=== PATIENT | male | born 1960 | race Native Hawaiian/Other Pacific Islander ===

== ENCOUNTER 2020-09-23 08:47 | Outpatient (REF) | payer MEDICARE, MEDICAID, SELFPAY | END 2020-09-23 08:48 | disposition home or self-care (01) | LOC: HO.HOSX 08:47 | PROVIDERS: Visit Provider Physician Assistant | DX: Z13.89 Encounter for screening for other disorder (principal) ==

== ENCOUNTER → 2020-10-17 08:05 | Outpatient (BNVA) | payer MEDICARE, SELFPAY | PROVIDERS: Visit Provider Urology | DX: R31.0 Gross hematuria (principal); N40.1 Benign prostatic hyperplasia with lower urinary tract symptoms; R39.15 Urgency of urination; F17.200 Nicotine dependence, unspecified, uncomplicated; Z87.442 Personal history of urinary calculi | CPT/HCPCS: 99202 ==

== ENCOUNTER 2020-10-17 09:04 | Outpatient (REF) | payer MEDICARE, SELFPAY ==
[2020-10-17 11:05] LABS: Blood Urea Nitrogen 21 mg/dL (9-16); Estimated Glomerular Filt Rate > 60
[2020-10-17 17:19] LABS: Urine Cytology See Pathology rpt
== END 2020-10-17 09:05 | disposition home or self-care (01) ==
LOC: HO.10HDL 09:04
PROVIDERS: Visit Provider Urology
DX: R31.0 Gross hematuria (principal); R39.15 Urgency of urination
CPT/HCPCS: 36415; 82565; 84520; 88112

== ENCOUNTER 2020-10-31 13:38 | Outpatient (REF) | payer MEDICARE, SELFPAY ==
--- NOTE | ~2020-10-31 | CT_ITS ---
EXAMINATION: CT ABDOMEN AND PELVIS WITHOUT AND WITH CONTRAST CLINICAL INFORMATION: Gross hematuria. Dual phase injection. COMPARISON: None. TECHNIQUE: Noncontrast CT of the abdomen and pelvis is performed followed by split bolus contrast-enhanced images using 85 mL Omnipaque 350 contrast.? Postcontrast imaging is performed during the combined nephrogram and excretion phase. Sagittal and coronal reformatted images were obtained on the technologist's workstation for both the precontrast and postcontrast phases. This CT examination was performed using dose optimization techniques as appropriate, variously including the following: *Automated exposure control *Adjustment of mA and/or kV according to patient size (this includes techniques or standardized protocols for targeted exams where dose is matched to indication/reason for exam; i.e. extremities or head) *Use of iterative reconstruction technique DLP: 383 mGy-cm. FINDINGS: LUNG BASES: There is a 2 mm calcified nodule left CP angle image 38/4. LIVER, GALLBLADDER, AND BILIARY TREE: The liver is normal in size, shape, and attenuation. There is a 1.4 cm lesion left hepatic lobe. There are there are several additional punctate hyperdensities in the left in the right hepatic lobe, probable cyst. The gallbladder is unremarkable with no evidence of radiopaque gallstones, gallbladder wall thickening, or obvious pericholecystic inflammatory changes. PANCREAS: Unremarkable. SPLEEN: Unremarkable. ADRENAL GLANDS: Unremarkable. KIDNEYS AND URETERS: There is 5 mm nonobstructive radiopaque calculi upper pole left kidney. Postcontrast, there are bilateral symmetrical nephrograms with right kidney measuring 10.2 cm and left kidney measuring 10.4 cm in length. There is no enhancing renal mass or mass effect. There is a nonenhancing 8 mm cyst txk-ag-enwin pole anterior cortex left kidney. On delayed images, there is good excretion and opacification of bilateral calyces and pelvises. The ureters are not well opacified. BLADDER: Unremarkable. GASTROINTESTINAL TRACT: There is scattered stool and gas seen throughout the colon without significant distention. The small bowel loops are normal caliber. Appendix is not visualized well. There is no free air or free fluid. ABDOMINAL WALL: There is a small umbilical hernia containing fat. LYMPH NODES: Normal. VASCULAR: Unremarkable. PELVIC VISCERA: The prostate gland is mildly enlarged with central gland calcification. No abnormal pelvic or inguinal lymph nodes or mass seen. OSSEUS STRUCTURES: There is grade 1 anterolisthesis L5 over S1. There is mild degenerative bulge L3-L4, L4-L5 and L5-S1 disc levels. There is an 8 mm lucency right iliac bone axial image 310/9. There is moderate right L5-S1 facet joint hypertrophy and arthropathy. CT/CT urogram IMPRESSION: Nonobstructive 5 mm radiopaque calculi upper pole left kidney. No caliectasis or hydronephrosis. Bilateral ureters and bladder are not opacified. Mild constipation. Grade 1 anterolisthesis L5 over S1.
== END 2020-10-31 13:39 | disposition home or self-care (01) ==
LOC: HO.CT 13:38
PROVIDERS: Visit Provider Urology
DX: R31.0 Gross hematuria (principal)
CPT/HCPCS: 74178

== ENCOUNTER → 2020-11-28 09:28 | Outpatient (BNVA) | payer OTHER, SELFPAY | PROVIDERS: Visit Provider Urology | DX: N40.1 Benign prostatic hyperplasia with lower urinary tract symptoms (principal); N13.8 Other obstructive and reflux uropathy; R39.15 Urgency of urination | CPT/HCPCS: 52000; 99212 ==

== ENCOUNTER → 2021-05-29 10:20 | Outpatient (BNVA) | payer MEDICARE, MEDICAID, SELFPAY | PROVIDERS: Visit Provider Urology | DX: N40.1 Benign prostatic hyperplasia with lower urinary tract symptoms (principal); N13.8 Other obstructive and reflux uropathy; R39.15 Urgency of urination | CPT/HCPCS: 51798; 99212 ==

== ENCOUNTER → 2021-11-19 09:43 | Outpatient (BNVA) | payer MEDICARE, MEDICAID, SELFPAY | PROVIDERS: PCP Nurse Practitioner; Visit Provider Urology | DX: N40.1 Benign prostatic hyperplasia with lower urinary tract symptoms (principal); N13.8 Other obstructive and reflux uropathy; R39.15 Urgency of urination; Z79.899 Other long term (current) drug therapy | CPT/HCPCS: 51798; 99212 ==

== ENCOUNTER 2022-09-07 07:30 | Outpatient (REF) | payer OTHER, SELFPAY ==
[2022-09-07 07:52] LABS: MANUAL DIFF FLAG NO
[2022-09-07 08:24] LABS: Basophils Percent Auto 0.2 % (0-2); Eosinophils Absolute Auto 0.2 X10*3/uL (0.0-0.4); Eosinophils Percent Auto 2.9 % (0-4); Hematocrit 43.7 % (42.0-52.0); Imm Gran Abs Auto 0.01 X10*3/uL (0.00-0.03); Imm Gran Pct Auto 0.2 % (0.0-0.4); Lymphocytes Percent Auto 35.4 % (20-40); Mean Corpuscular Hemoglobin 28.5 pg (27.0-33.0); Mean Corpuscular Volume 88.8 fL (80.0-98.0); Mean Platelet Volume 9.8 fL (9.4-12.4); Monocytes Absolute Auto 0.5 X10*3/uL (0.1-1.2); Monocytes Percent Auto 8.2 % (2-11); Neutrophils Absolute Auto 2.9 x10*3/uL (2.0-8.3); Neutrophils Percent Auto 53.1 % (45-73); Platelet Count 210 X10*3/uL (160-400); Red Blood Count 4.92 X10*6/uL (4.60-5.80); Red Cell Distribution Width 12.6 % (11.0-16.0); White Blood Count 5.5 X10*3/uL (4.8-10.8)
[2022-09-07 08:31] LABS: Estimated Average Glucose 103 mg/dL; Hemoglobin A1c % 5.2 %
[2022-09-07 09:05] LABS: Alanine Aminotransferase 19 U/L (0-40); Albumin Level 4.4 g/dL (3.5-5.0); Alkaline Phosphatase 67 U/L (39-117); Anion Gap 11 (12-20); Aspartate Amino Transferase 20 U/L (5-37); Bilirubin Total 0.6 mg/dL (0.0-1.0); Blood Urea Nitrogen 13 mg/dL (9-16); Calcium 9.1 mg/dL (8.4-10.2); Carbon Dioxide 24 mmol/L (22-29); Chloride 111 mmol/L (96-108); Cholesterol 120 mg/dL; Estimated Glomerular Filt Rate > 60; Glucose Random 95 mg/dL (60-115); HDL Cholesterol 46 mg/dL; LDL Cholesterol Calculated 65 mg/dl; Potassium 3.7 mmol/L (3.3-5.1); Sodium 142 mmol/L (135-145); Total Protein 6.9 g/dL (6.5-8.0); Triglycerides 49 mg/dL
[2022-09-07 09:14] LABS: Syphilis Screen Nonreactive (Nonreactive)
[2022-09-07 09:20] LABS: TSH reflex Free T4 1.35 uIU/mL (0.32-4.0)
[2022-09-07 09:24] LABS: Creatinine Urine 159.02 mg/dL; Microalbum/Creatinine Ratio Ur 5.6 ug/mg cr
[2022-09-07 11:54] LABS: CT PCR NOT DETECTED (Not Detect.); NG PCR NOT DETECTED (Not Detect.)
[2022-09-09 15:44] LABS: HIV RNA PCR Qn Copies NOT DETECTED copies/mL (NOT DETECTED); HIV RNA PCR Qn Log Copies NOT DETECTED (NOT DETECTED)
[2022-09-10 15:28] LABS: HCV Log PCR <1.18 NOT DETECTED Log IU/mL (NOT DETECTED); HepC Viral Load <15 NOT DETECTED IU/mL (NOT DETECTED)
== END 2022-09-07 07:31 | disposition home or self-care (01) ==
LOC: HO.LAB 07:30
PROVIDERS: PCP Registered Nurse; Visit Provider Registered Nurse
DX: Z00.00 Encounter for general adult medical examination without abnormal findings (principal); Z11.4 Encounter for screening for human immunodeficiency virus [HIV]; Z20.2 Contact with and (suspected) exposure to infections with a predominantly sexual mode of transmission; R00.0 Tachycardia, unspecified; R03.0 Elevated blood-pressure reading, without diagnosis of hypertension
CPT/HCPCS: 0353U; 80053; 80061; 82043; 83036; 84443; 85025; 86780; 87522; 87536

== ENCOUNTER 2023-02-17 11:14 | Outpatient (AMB) | payer OTHER, SELFPAY ==
--- NOTE | 2023-02-17 11:16 | MHC.OFFVIS ---
Intake Intake Visit Reasons: 1y/PVR(BPH) Intake Note: Patient is Present for Follow Up Urology Medication: Finasteride, Tamsulosin Antibiotic Allergies:None Blood Thinners: None PVR: 29 Allergies No Known Allergies Allergy (Verified 02/17/23 11:17) HPI HPI Comments History of Present Illness Details Matthew is a very pleasant male. He is seen for the following urologic conditions - gross hematuria - persistent microscopic hematuria - lower urinary tract symptoms Greenlandic translation provided in office by qualified medical physics professor PVR remains low - 30cc Continued with combination medication Twelve month follow-up Lower urinary tract symptoms Current therapy includes Flomax and finasteride Gross hematuria Intermittent for past 6 months - since early 2020 Was waking 3 times at night but PCP gave Flomax and has responded Employment history working in [employer] Smoking history 2-3 cigarettes per day for 20 years but ceased 15 years ago - Imaging - 12/05 CT urogram no evidence of lesions - Cytology - 12/05 NAD Plan - 12 month follow-up [facility] Medical History History of kidney stones Gross hematuria Umbilical hernia Surgical History History of surgery Social History Patient Tobacco Use Status: Former Tobacco user Review of Systems Const Denies chills and Denies fever(s) Card Reports no additional complaints and Denies syncope Resp Denies cough GI Denies abdominal pain and Denies heartburn Reports as per HPI and Denies change in libido Neuro Denies syncope Psych Denies change in libido Endo Denies change in libido Physical Exam Const General: cooperative, healthy appearing, comfortable and no acute distress Orientation/consciousness: patient oriented x3 HEENT Face and sinus: Yes normal facial exam Mouth: moist mucous membranes Neck Neck: Yes normal visual inspection, Yes full ROM and Yes trachea midline Chest Chest palpation & inspection: normal inspection of the chest Resp Effort & Inspection: normal respiratory effort, able to speak in complete sentences and no respiratory distress GI Inspection: Yes normal to inspection Back/Spine/Pelvis Cervical Spine: normal cervical lordosis Thoracic/Lumbar Spine: thoracic and lumbar spine normal to inspection Skin General skin exam: no rashes or lesions noted Neuro General: patient oriented x3, gait normal, tone normal and moves all extremities Extrem General: Yes normal to inspection and Yes capillary refill normal Office Procedures Post Void Residual Post Residual Void Post Void Residual (PVR): 29 54678-Rpyw Void Residual by ultrasound Assessment & Plan Assessment & Plan (1) BPH w urinary obs/LUTS: Code(s): N40.1 - Benign prostatic hyperplasia with lower urinary tract symptoms; N13.8 - Other obstructive and reflux uropathy Plan Twelve month follow-up Orders: Orders Prostate Specific Antigen 364 Days N13.8 - Other obstructive and reflux uropathy, N40.1 - Benign prostatic hyperplasia with lower urinary tract symptoms AMB Post Void Residual by ultrasound Today N13.8 - Other obstructive and reflux uropathy, N40.1 - Benign prostatic hyperplasia with lower urinary tract symptoms Medications: Changed From finasteride 5 mg PO DAILY 30 days 30 tabs 1RF N13.8 - Other obstructive and reflux uropathy, N40.1 - Benign prostatic hyperplasia with lower urinary tract symptoms, R33.9 - Retention of urine, unspecified To finasteride 5 mg PO DAILY 90 tabs 3RF 90 days N13.8 - Other obstructive and reflux uropathy, N40.1 - Benign prostatic hyperplasia with lower urinary tract symptoms, R33.9 - Retention of urine, unspecified From tamsulosin 0.4 mg PO BEDTIME 30 days 30 caps 1RF To tamsulosin 0.4 mg PO BEDTIME 90 caps 3RF 90 days Patient Instructions: Imaging studies, laboratory and physical exam results were discussed and reviewed in detail. No major barriers to patient understanding were identified. An opportunity to ask questions regarding the treatment plan was provided. All questions were answered. The patient expressed understanding and agreement with the above treatment plan. The patient is aware they should contact our office by phone for worsening of their current condition or the appearance of new urologic symptoms. Compliance is encouraged with any medications and followup testing that is ordered. It is a privilege to participate in the urologic care of your patient. If you have any questions or concerns regarding treatment for the above conditions, or other urologic issues, please do not hesitate to contact me. The office telephone contact is [phone]. This note is constructed using voice recognition software. While every effort has been made to ensure accuracy tracer powder blender errors may have been included. Yours sincerely, Dr Josemanuel Sung MD, [facility] - Urology Providers of Expert, Compassionate Care for the Genitourinary System Coding Level of Care Code Est Pt Level 4 (83892) Diagnoses BPH w urinary obs/LUTS N40.1; N13.8 CPT Codes Post Residual Void - PVR CPT Code: 35173-Wudu Void Residual by ultrasound ([id number])
== END 2023-02-17 11:30 | disposition home or self-care (01) ==
LOC: HO.HUSH 11:14
PROVIDERS: PCP Registered Nurse; Visit Provider Urology
DX: N40.1 Benign prostatic hyperplasia with lower urinary tract symptoms (principal); N13.8 Other obstructive and reflux uropathy
CPT/HCPCS: 99213

== ENCOUNTER → 2023-02-17 11:14 | Outpatient (BNVA) | payer OTHER, SELFPAY | PROVIDERS: PCP Registered Nurse; Visit Provider Urology | DX: N40.1 Benign prostatic hyperplasia with lower urinary tract symptoms (principal); N13.8 Other obstructive and reflux uropathy | CPT/HCPCS: 51798; 99212 ==

== ENCOUNTER 2023-08-26 08:14 | Outpatient (REF) | payer OTHER, SELFPAY ==
[2023-08-26 11:42] LABS: MANUAL DIFF FLAG NO
[2023-08-26 11:47] LABS: Basophils Percent Auto 0.6 % (0-2); Eosinophils Absolute Auto 0.2 X10*3/uL (0.0-0.4); Eosinophils Percent Auto 4.1 % (0-4); Hematocrit 39.6 % (42.0-52.0); Imm Gran Abs Auto 0.02 X10*3/uL (0.00-0.03); Imm Gran Pct Auto 0.4 % (0.0-0.4); Lymphocytes Absolute Auto 2.1 X10*3/uL (1.2-4.9); Lymphocytes Percent Auto 38.4 % (20-40); Mean Corpuscular HGB Conc 32.8 g/dl (31.0-36.0); Mean Corpuscular Hemoglobin 29.4 pg (27.0-33.0); Mean Corpuscular Volume 89.6 fL (80.0-98.0); Mean Platelet Volume 9.8 fL (9.4-12.4); Monocytes Absolute Auto 0.4 X10*3/uL (0.1-1.2); Monocytes Percent Auto 7.8 % (2-11); Neutrophils Absolute Auto 2.6 x10*3/uL (2.0-8.3); Neutrophils Percent Auto 48.7 % (45-73); Platelet Count 212 X10*3/uL (160-400); Red Blood Count 4.42 X10*6/uL (4.60-5.80); Red Cell Distribution Width 13.3 % (11.0-16.0); White Blood Count 5.4 X10*3/uL (4.8-10.8)
[2023-08-26 11:57] LABS: Estimated Average Glucose 103 mg/dL; Hemoglobin A1c % 5.2 % (<6.0)
[2023-08-26 12:09] LABS: Alanine Aminotransferase 14 U/L (0-40); Alkaline Phosphatase 59 U/L (39-117); Anion Gap 10 (12-20); Aspartate Amino Transferase 17 U/L (5-37); Bilirubin Total 0.4 mg/dL (0.0-1.0); Blood Urea Nitrogen 12 mg/dL (9-16); Carbon Dioxide 24 mmol/L (22-29); Chloride 112 mmol/L (96-108); Cholesterol 145 mg/dL (<200); Estimated Glomerular Filt Rate > 60; Glucose Random 91 mg/dL (60-115); HDL Cholesterol 46 mg/dL (>40); LDL Cholesterol Calculated 90 mg/dL (<100); Potassium 3.9 mmol/L (3.3-5.1); Sodium 142 mmol/L (135-145); Total Protein 6.4 g/dL (6.5-8.0); Triglycerides 48 mg/dL (<150)
== END 2023-08-26 08:15 | disposition home or self-care (01) ==
LOC: HO.HHCL 08:14
PROVIDERS: Visit Provider Registered Nurse
DX: Z00.00 Encounter for general adult medical examination without abnormal findings (principal); Z13.1 Encounter for screening for diabetes mellitus
CPT/HCPCS: 36415; 80053; 80061; 83036; 85025

== ENCOUNTER 2023-08-27 10:12 | Outpatient (REF) | payer OTHER, SELFPAY ==
--- NOTE | ~2023-08-27 | XR_ITS ---
EXAMINATION: XR KNEE, LEFT CLINICAL INFORMATION: Left knee pain. Crepitus. COMPARISON: 03/12/2015. TECHNIQUE: Three views of the left knee. FINDINGS: Mild tricompartmental osteoarthritis in the left knee is characterized by joint space narrowing and marginal osteophytes. Small joint effusion. No fracture or malalignment. Bone mineralization is normal. No intra-articular loose bodies. XR/XR knee LT 3V IMPRESSION: Mild tricompartmental osteoarthritis in the left knee. Small joint effusion.
--- NOTE | ~2023-08-27 | XR_ITS ---
EXAMINATION: XR LUMBOSACRAL SPINE CLINICAL INFORMATION: Chronic bilateral low back pain. COMPARISON: CT dated 10/31/2020. TECHNIQUE: AP and lateral views of the lumbar spine and Castellanos and lateral views of the lumbosacral junction. FINDINGS: Grade 2 anterolisthesis of L5 on S1 by 1.1 cm. Bilateral L5 facet arthropathy and pars defects at L5-S1. Rqal-ec-rjfmlens multilevel degenerative disc disease in the lumbar spine with loss of intervertebral disc height, endplate osteophytes, and endplate sclerosis. Qkcn-wk-hqfuaxcn right convex scoliosis centered at L2. SI joints appear well-preserved. No acute fractures. Vertebral body heights are normal. Soft tissues are unremarkable. XR/XR lumbar spine 2-3V IMPRESSION: 1. Grade 2 anterolisthesis of L5 on S1 with bilateral pars defects at L5-S1. 2. Gsok-wc-cleykdgh multilevel degenerative disc disease in the lumbar spine. 3. Tmmz-vu-hyqqoqxg right convex scoliosis.
== END 2023-08-27 10:13 | disposition home or self-care (01) ==
LOC: HO.HHCX 10:12
PROVIDERS: Visit Provider Registered Nurse
DX: M54.50 Low back pain, unspecified (principal); M25.562 Pain in left knee; G89.29 Other chronic pain
CPT/HCPCS: 72100; 73562

== ENCOUNTER 2023-10-14 08:10 | Outpatient (REF) | payer OTHER, SELFPAY ==
[2023-10-14 11:12] LABS: MANUAL DIFF FLAG NO
[2023-10-14 11:19] LABS: Basophils Percent Auto 0.6 % (0-2); Eosinophils Absolute Auto 0.2 X10*3/uL (0.0-0.4); Eosinophils Percent Auto 2.8 % (0-4); Hematocrit 41.3 % (42.0-52.0); Hemoglobin 13.5 g/dl (14.0-18.0); Imm Gran Abs Auto 0.01 X10*3/uL (0.00-0.03); Imm Gran Pct Auto 0.2 % (0.0-0.4); Lymphocytes Absolute Auto 2.1 X10*3/uL (1.2-4.9); Lymphocytes Percent Auto 38.9 % (20-40); Mean Corpuscular HGB Conc 32.7 g/dl (31.0-36.0); Mean Corpuscular Hemoglobin 29.3 pg (27.0-33.0); Mean Corpuscular Volume 89.8 fL (80.0-98.0); Mean Platelet Volume 9.9 fL (9.4-12.4); Monocytes Absolute Auto 0.4 X10*3/uL (0.1-1.2); Monocytes Percent Auto 7.9 % (2-11); Neutrophils Absolute Auto 2.6 x10*3/uL (2.0-8.3); Neutrophils Percent Auto 49.6 % (45-73); Platelet Count 218 X10*3/uL (160-400); Red Cell Distribution Width 12.7 % (11.0-16.0); Retic HGB Equivalent 32.3 pg (30.0-35.0); Reticulocyte Percent 1.3 % (0.5-1.8); Reticulocytes Absolute 0.061 X10*6/uL (0.026-0.095); White Blood Count 5.3 X10*3/uL (4.8-10.8)
[2023-10-14 11:40] LABS: Estimated Average Glucose 97 mg/dL
[2023-10-14 11:53] LABS: Alanine Aminotransferase 13 U/L (0-40); Albumin Level 4.3 g/dL (3.5-5.0); Alkaline Phosphatase 61 U/L (39-117); Anion Gap 9 (12-20); Aspartate Amino Transferase 16 U/L (5-37); Bilirubin Direct 0.2 mg/dL (0.0-0.5); Bilirubin Total 0.4 mg/dL (0.0-1.0); Blood Urea Nitrogen 7 mg/dL (9-16); Calcium 9.5 mg/dL (8.4-10.2); Carbon Dioxide 28 mmol/L (22-29); Chloride 109 mmol/L (96-108); Cholesterol 158 mg/dL (<200); Estimated Glomerular Filt Rate > 60; Glucose Random 98 mg/dL (60-115); HDL Cholesterol 47 mg/dL (>40); Iron 78 mcg/dL (45-160); LDL Cholesterol Calculated 99 mg/dL (<100); Percent Iron Saturation 28 % (15-50); Potassium 3.9 mmol/L (3.3-5.1); Sodium 142 mmol/L (135-145); Total Iron Binding Capacity 280 mcg/dL (228-428); Total Protein 6.7 g/dL (6.5-8.0); Triglycerides 62 mg/dL (<150); Unsaturated Iron Binding 202 ug/dL
[2023-10-14 11:58] LABS: Ferritin 59 ng/mL (20-250); Vitamin D 25-OH Total 88.4 ng/mL (>30)
[2023-10-14 12:05] LABS: Prostate Specific Antigen 0.72 ng/mL (<0.05-4.0)
[2023-10-14 12:16] LABS: Folate 13.1 ng/mL (> or = 4.0); Vitamin B12 309 pg/mL (200-900)
== END 2023-10-14 08:11 | disposition home or self-care (01) ==
LOC: HO.HHCL 08:10
PROVIDERS: Urology; Visit Provider Registered Nurse
DX: Z00.00 Encounter for general adult medical examination without abnormal findings (principal); E55.9 Vitamin D deficiency, unspecified; D64.9 Anemia, unspecified; E88.09 Other disorders of plasma-protein metabolism, not elsewhere classified; N40.1 Benign prostatic hyperplasia with lower urinary tract symptoms; N13.8 Other obstructive and reflux uropathy; Z12.5 Encounter for screening for malignant neoplasm of prostate
CPT/HCPCS: 36415; 80053; 80061; 82248; 82306; 82607; 82728; 82746; 83036; 83540; 84153; 85025; 85045

== ENCOUNTER 2024-03-21 08:05 | Outpatient (REF) | payer OTHER, SELFPAY ==
--- OUTSIDE RECORDS SUMMARY | 2024-03-21 08:10 | XMS_ITS | Encounter Summary ---
Author Organization [employer] Address [address] [place] [address] Care Team Providers Care Social Insurance Adviser Name Role Phone Kiana Lora Primary Care Provider [phone] Josemanuel Sung MD Unavailable [phone] Encounter Details Date Type Department Care Team (Late st Contact Info) Description 01/01/2023 Abstract [facility] MEDICINE [address] [place], [place] [id number] Maureen Auguste Social History Tobacco Use Types Packs/Day Years Used Date Smoking Tobacco: Former Cigarettes Comments:15 years ago. 12/30 Alcohol Use Standard Drinks/Week Comments Never 0 (1 standard drink = 0.6 oz pur e alcohol) Depression Answer Date Recorded Patient Health Questionnaire-9 Score 0 05/26/2022 Housing Stability Answer Date Recorded What is your housing situation today? I have housing today, but I am worried about losing housing in the future 12/02/[address] you li ve. Do you have problems with any of the following? None of the above 12/02/2022 Food Insecurity Answer Date Recorded Within the past 12 months, y ou worried that your food would run out before you got money to buy more: Never True 12/02/2022 Within the past 12 months,th e food you bought just didn't last and you didn't have enough money to get more: Never True Transportation Answer Date Recorded In the past 12 months, has l ack of transportation kept you from medical appts, meetings, work or from getting things needed for daily living? No 12/02/2022 Utilities Answer Date Recorded In the past 12 months, has t he electric, gas, oil or water [employer] threatened to shut off services in your home? No 12/02/2022 Depression Answer Date Recorded Patient Health Questionnaire-2 Score 0 05/26/2022 Sex and Gender Information Value Date Recorded Sex Assigned at Male 12/15/2021 10:17 AM EDT Legal Sex Male 10:17 AM EDT Gender Identity Male 05/26/2022 1:01 PM EDT Sexual Orientation Choose not to disclose 2021 10:17 AM EDT documented as of this encounter Plan of Treatment Upcoming Encounters Date Type Department Care Team (Late st Contact Info) Description 03/24/2024 10:00 AM EST Office Visit [facility] OPTOMETRY [address] [place] [address] KunalAndreia, OD [address] [place] [address] 06/28/2024 9:00 AM EDT Immunization [facility]ICINE [address] [place] [address] documented as of this encounter Procedures Procedure Name Priority Date/Time Associated Diagnosis Comments COLONOSCOPY Routine 04/16/2015 documented in this encounter Results * Colonoscopy (04/16/2015) Colonoscopy Normal Normal Narrative Maureen Auguste - 04/16/2015 Repeat in 10 years us Historical Provider HEALTH MAINTENANCE Final Result documented in this encounter Visit Diagnoses Not on filedocumented in this encounter Additional Health Concerns Assessment Noted Time PHQ-9 Depression Total Score: 0 05/27/19 23 11:47 AM EDT documented as of this encounter Care Teams Social Insurance Adviser Relationship Specialty Start Date End Date Kiana Lora FNP [address] [place] [address] PCP - General Family Medicine 11/21/21 Josemanuel Sung MD [address] [place] [address] Urology 03/15/24 documented as of this encounter
--- OUTSIDE RECORDS SUMMARY | 2024-03-21 08:10 | XMS_ITS | Encounter Summary ---
Author Organization [facility] [facility] Address [address] [place] [address] Care Team Providers Care Shipping Track Supervisor Name Role Phone Kiana Lora Primary Care Provider [phone] Josemanuel Sung MD Unavailable [phone] Encounter Details Date Type Department Care Team (Latest Contact Info) Description 10/14/2018 Abstract [facility] CONVERSIONS Dental, Provider, DDS Social History Tobacco Use Types Packs/Day Years Used Date Smoking Tobacco: Never Assessed Sex and Gender Information Value Date Recorded [...] Description 03/24/2024 10:00 AM EST Office Visit [facility] OPTOMETRY [address] [place] [address] Andreia Syed, OD [address] [place] [address] 06/28/2024 9:00 AM EDT Immunization [facility] MEDICINE [address] [place] [address] documented as of this encounter Visit Diagnoses Not on filedocumented in this encounter Care Teams Shipping Track Supervisor Relationship Specialty Start Date End Date Kiana Lora FNP [address] [place] [address] PCP - General Family Medicine 11/21/21 Josemanuel Sung MD [address] [place] [address] Urology 03/15/24 documented as of this encounter
--- OUTSIDE RECORDS SUMMARY | 2024-03-21 08:10 | XMS_ITS | Encounter Summary ---
Author Organization [employer] [facility] Address [address] [place] [address] Care Team Providers Care Staying Machine Operator Name Role Phone Kiana Lora Primary Care Provider [phone] Josemanuel Sung MD Unavailable [phone] Encounter Details Date Type Department Care Team (Latest Contact Info) Description 01/22/2021 Abstract [facility] CONVERSIONS Dental, Provider, DDS Social History Tobacco [...] Description 03/24/2024 10:00 AM EST Office Visit [facility] OPTOMETRY [address] [place] [address] Andreia Syed, OD [address] [place] [address] 06/28/2024 9:00 AM EDT Immunization [facility] MEDICINE [address] [place] [address] documented as of this encounter Visit Diagnoses Not on filedocumented in this encounter Care Teams Staying Machine Operator Relationship Specialty Start Date End Date Kiana Lora FNP [address] [place] [address] PCP - General Family Medicine 11/21/21 Josemanuel Sung MD [address] [place] [address] Drive [address] [place] [address] Urology 03/15/24 documented as of this encounter
--- OUTSIDE RECORDS SUMMARY | 2024-03-21 08:10 | XMS_ITS | Encounter Summary ---
Author Organization [employer] Address [address] [place] [address] Care Team Providers Care Hadoop Admin Name Role Phone Geno Kiana JEANNE Primary Care Provider [phone] Josemanuel Sung MD Unavailable [phone] Reason for Visit * Reason Comments Med Refill Encounter Details Date Type Department Care Team ([facility] st Contact Info) Description 03/26/2023 Refill [facility] ADULT DENTAL [address] [place], [place] [phone] Shahid Murrieta DDS [address] [place], [place] [phone] Social History Tobacco Use Types Packs/Day Years [...] t he electric, gas, oil or water company threatened to shut off services in your home? No 12/02/2022 Depression Answer Date Recorded Patient Health Questionnaire-2 Score 0 05/26/2022 Sex and Gender Information Value Date Recorded Sex Assigned at Male 12/15/2021 10:17 AM EDT Legal Sex Male 10:17 AM EDT Gender Identity Male 05/26/2022 1:01 PM EDT Sexual Orientation Choose not to disclose 2021 10:17 AM EDT documented as of this encounter Miscellaneous Notes * Telephone Encounter - Glenn Arizmendi DMD - 03/26/2023 1:17 PM EST Please follow up with Dr. Murrieta. Thanks documented in this encounter Plan of Treatment Upcoming Encounters Date Type Department Care Team (Late st Contact Info) Description 03/24/2024 10:00 AM EST Office Visit [facility] OPTOMETRY [address] [place] [address] Andreia Syed, OD [address] [place] [address] 06/28/2024 9:00 AM EDT Immunization [facility] MEDICINE [address] [place] [address] documented as of this encounter Visit Diagnoses Not on filedocumented in this encounter Additional Health Concerns Assessment Noted Time PHQ-9 Depression Total Score: 0 05/27/19 23 11:47 AM EDT documented as of this encounter Care Teams Hadoop Admin Relationship Specialty Start Date End Date Kiana Lora FNP [address] [place] [address] PCP - General Family Medicine 11/21/21 Josemanuel Sung MD [address] [place] [address] Urology 03/15/24 documented as of this encounter
--- OUTSIDE RECORDS SUMMARY | 2024-03-21 08:11 | XMS_ITS | Encounter Summary ---
Author Organization [employer] Address [address] [place] [address] Care Team Providers Care Stakeholder Manager Name Role Phone Kiana Lora Primary Care Provider [phone] Josemanuel Sung MD Unavailable [phone] Encounter Details Date Type Department Care Team (Late Contact Info) Description 04/20/2022 Orders Only [facility] MED & PEDS [address] [place] [address] Sunshine Hernandez LPN Social History Tobacco Use Types Packs/Day Years [...] Encounters Date Type Department Care Team (Late Contact Info) Description 03/24/2024 10:00 AM EST Office Visit [facility] OPTOMETRY [address] [place] [address] KunalAndreia young, OD [address] [place] [address] 06/28/2024 9:00 AM EDT Immunization [facility] MEDICINE [address] [place] [address] documented as of this encounter Visit Diagnoses Not on filedocumented in this encounter Care Teams Stakeholder Manager Relationship Specialty Start Date End Date Kiana Lora FNP [address] [place] [address] PCP - General Family Medicine 11/21/21 Josemanuel Sung MD [address] [place] [address] Drive [address] [place] [address] Urology 03/15/24 documented as of this encounter
--- OUTSIDE RECORDS SUMMARY | 2024-03-21 08:11 | XMS_ITS | Encounter Summary ---
Author Organization [employer] Address [address] [place] [address] Care Team Providers Care Wire Walker Name Role Phone Kiana Lora Primary Care Provider [phone] Josemanuel Sung MD Unavailable [phone] Encounter Details Date Type Department Care Team (Latest Contact Info) Description 03/15/2024 11:15 AM EST Office Visit [facility] MED[facility] [address] [place] [address] Kiana Lora FNP [address] [place] [address] Anterolisthesis of lumbosacral spine (Primary Dx); Encounter for immunization; Acute effusion of right ear Social History Tobacco Use Types Packs/Day Years Used Date Smoking Tobacco: Former Cigarettes Comments:15 years ago. 12/30 Alcohol Use Standard Drinks/Week Comments Never 0 (1 standard drink = 0.6 oz pur e alcohol) Alcohol Answer Date Recorded Frequency of Alcohol Consumption Not on file 08/25/2023 Average Number of Drinks Not on file 024 Frequency of Binge Drinking Not on file 08/15 Score 0 08/25/2023 Depression Answer Date Recorded Patient Health Questionnaire-9 Score 1 08/25/2023 Patient Health Questionnaire-9 Score 1 08/25/2023 Last PHQ-9: Questionnaire Data Not on file 0 08/25/2023 Housing Stability Answer Date Recorded What is your housing situation today? I have iwona pearson 08/25/[address] you li ve. Do you have problems with any of the following? None of the above 08/25/2023 Food Insecurity Answer Date Recorded Within the past 12 months, y ou worried that your food would run out before you got money to buy more: Never True 08/16/2023 Within the past 12 months,th e food you bought just didn't last and you didn't have enough money to get more: Never True 02/2023 Transportation Answer Date Recorded In the past 12 months, has l ack of transportation kept you from medical appts, meetings, work or from getting things needed for daily living? No 08/16/2023 Utilities Answer Date Recorded In the past 12 months, has t he electric, gas, oil or water company threatened to shut off services in your home? No 08/16/2023 Depression Answer Date Recorded Patient Health Questionnaire-2 Score 0 08/25/2023 Internet Access Answer Date Recorded Internet Access Q1 Yes 10/18/2023 Internet Access Q2 I do not want or need it 03/2023 Sex and Gender Information Value Date Recorded Sex Assigned at Male 12/15/2021 10:17 AM EDT Legal Sex Male 10:17 AM EDT Gender Identity Male 05/26/2022 1:01 PM EDT Sexual Orientation Choose not to disclose 2021 10:17 AM EDT documented as of this encounter Last Filed Vital Signs Vital Sign Reading Time Taken Comments Blood Pressure 136/82 03/15/2024 11:16 AM EST Pulse 72 03/15/2024 11:16 AM EST Temperature 36.6 ??C (97.8 ??F) 03/15/2024 11:[address] Respiratory Rate 18 03/15/2024 11:16 AM EST Oxygen Saturation 98% 03/15/2024 11:16 AM EST Inhaled Oxygen Concentration - - Weight 61 kg (134 lb 6 oz) 03/15/2024 11:[address] Height 165.1 cm (5' 5 ) 03/15/2024 11:16 AM EST Body Mass Index 22.36 03/15/2024 11:16 AM EST documented in this encounter Progress Notes * Kiana Lora, JEANNE - 03/15/2024 11:15 AM EST Subjective: Matthew Ayers is a 63 y.o. male w/ PMH BPH, scoliosis, and depressive disorder who presents to the office for a follow up visit : chronic conditions. HPI Last PCP visit: August 2023 for PE Back pain: reports that he has been managing well with topical analgesics and PO APAP Prn. No bowel/bladder incontinence or saddle paresthesia. 08/27/23: XR lumbar spine - demonstrated anterolisthesis of L5 on S1, with bilateral pars defects. Mild to moderate DDD in lumbar spine, and mild to moderate scoliosis. Right ear: Describes sound of air or water in right ear x 1 month. No pain or discomfort, just bothersome sound. Past Surgical History: Procedure Laterality Date LITHOTRIPSY UMBILICAL HERNIA REPAIR 2015 Family History Problem Relation Alzheimer's disease Mother Coronary artery disease Father Seizures Sister Developmental delay Sister Stroke Sister Prostate cancer Maternal Grandfather Social history: Living - living with of more than 35 years. Denies any safety concerns. Daughter and grandchildren live in [place] Employment - SSI Substance Use - occasional marijuana use to help with pain. Denies use of other substances Mental health - reports has been good overall. Completed therapy sessions. Denies SI/HI/thoughts ofself harm. No Known Allergies Review of Systems Constitutional: Negative for chills and fever. HENT: Negative for ear pain. Respiratory: Negative for cough and wheezing. Cardiovascular: Negative for chest pain and palpitations. Gastrointestinal: Negative for vomiting. Musculoskeletal: Positive for back pain. Visit Vitals BP 136/82 (BP Location: Right arm, Patient Position: Sitting, BP Cuff Size: Adult) Pulse 72 Temp 97.8 ??F (36.6 ??C) (Temporal) Resp 18 Ht 5' 5 (1.651 m) Wt 134 lb 6 oz (61 kg) SpO2 98% BMI 22.36 kg/m?? Smoking Status Former BSA 1.67 m?? Physical Exam Vitals reviewed. Constitutional: Appearance: Normal appearance. HENT: Head: Atraumatic. Right Ear: Hearing, ear canal and external ear normal. A middle ear effusion (Mild) is present. Left Ear: Hearing, tympanic membrane, ear canal and external ear normal. Cardiovascular: Rate and Rhythm: Normal rate and regular rhythm. Pulmonary: Effort: Pulmonary effort is normal. Breath sounds: Normal breath sounds. Neurological: Mental Status: He is alert and oriented to person, place, and time. Psychiatric: Mood and Affect: Mood normal. Behavior: Behavior normal. Problem List Items Addressed This Visit Musculoskeletal Anterolisthesis of lumbosacral spine - Primary Overview Lumbar x-ray completed August 2023: 1. Grade 2 anterolisthesis of L5 on S1 with bilateral pars defects at L5-S1. 2. Drmm-ph-hhpqwmmy multilevel degenerative disc disease in the lumbar spine. 3. Anyq-kg-yhlmopgc right convex scoliosis Current Assessment & Plan No red flag symptoms Reports well-controlled at this time with topical analgesics and APAP as needed Follow-up if interested in referral to physical therapy or physiatry Encouraged to continue with pharm and non-pharm tx modalities Relevant Medications lidocaine-prilocaine (Emla) 2.5-2.5 % cream acetaminophen (Tylenol 8 Hour) 650 MG ER tablet Other Visit Diagnoses Encounter for immunization Relevant Orders FLU VACCINE TRIVALENT HIGH DOSE 65 yrs + (Completed) COVID-19 VACCINE (Pfizer) [id number] 12 yrs + (Completed) Acute effusion of right ear - Minimal on exam, symptoms mild but bothersome to pt - Reassurance provided - Start cetirizine PO and flonase intranasal - Re-check in 4 weeks Relevant Medications cetirizine (ZyrTEC) 10 MG tablet fluticasone (Flonase) 50 MCG/ACT nasal spray Follow up: 1 month re-check, sooner as needed documented in this encounter Miscellaneous Notes * Assessment & Plan Note - JEANNE Huerta - 03/15/2024 6:03 PM ESTAssociated Problem(s): Anterolisthesis of lumbosacral spine No red flag symptoms Reports well-controlled at this time with topical analgesics and APAP as needed Follow-up if interested in referral to physical therapy or physiatry Encouraged to continue with pharm and non-pharm tx modalities documented in this encounter Plan of Treatment Upcoming Encounters Date Type Department Care Team (Late st Contact Info) Description 03/24/2024 10:00 AM EST Office Visit [facility] OPTOMETRY [address] [place] [id number] Andreia Syed, OD [address] [place] [address] 06/28/2024 9:00 AM EDT Immunization [facility] [address] [place] [address] documented as of this encounter Visit Diagnoses Diagnosis Anterolisthesis of lumbosacral spine- Primary Encounter for immunization Acute effusion of right ear documented in this encounter Additional Health Concerns Assessment Noted Time PHQ-9 Depression Total Score: 1 08/25/19 24 9:16 AM EDT documented as of this encounter Care Teams Wire Walker Relationship Specialty Start Date End Date Kiana Lora FNP [address] [place] [address] PCP - General Family Medicine 11/21/21 Josemanuel Sung MD [address] [place] [address] Urology 03/15/24 documented as of this encounter
--- OUTSIDE RECORDS SUMMARY | 2024-03-21 08:11 | XMS_ITS | Encounter Summary ---
Author Organization [employer] Address [address] [facility] 7[address] [place] [address] Care Team Providers Care Motor Operator Name Role Phone Kiana Lora REPAIR ARMATURE WINDER HELPER Primary Care Provider [phone] Reason for Visit * Reason Comments Extraction Encounter Details Date Type Department Care Team ([facility] st Contact Info) Description 03/03/2024 8:00 AM EST Office Visit [facility] AD[facility] DENTAL [address] [place], [place] [phone] Shahid Murrieta DDS [address] [place], [place] [phone] Periodontal disease (Primary Dx); Severe dental caries Social History Tobacco Use Types Packs/Day Years [...] Sign Reading Time Taken Comments Blood Pressure 124/76 03/03/2024 11:14 AM EST Pulse - - Temperature - - Respiratory Rate - - Oxygen Saturation - - Inhaled Oxygen Concentration - - Weight - - Height - - Body Mass Index - - documented in this encounter Progress Notes * Shahid Murrieta, TIMOTEOS - 03/03/2024 8:00 AM EST Patient ID: Matthew Ayers is a 63 y.o. male. Time Out: Timeout Date: 03/03/24 (ext on tooth # 11), Timeout Time: 0803 Location: [facility] Tooth: Maxilla and #11 Procedure: Extraction Verified the above with patient, library media assistant, and provider. Confirmed via patient's chart, intraorally and by radiographs. Transport Truck Driver: not applicable Chief Complaint Patient presents with Extraction Medical Hx: Vitals: There were no vitals taken for this visit. Past Medical History: Diagnosis Date BPH (benign prostatic hyperplasia) Depression History of alcoholism (CMS/HCC) HLD (hyperlipidemia) Medications: Outpatient Encounter Medications as of 03/03/2024 Medication Sig Dispense Refill acetaminophen (Tylenol 8 Hour) 650 MG ER tablet TAKE 1 TABLET BY MOUTH EVERY 8 HOURS NEEDED FOR PAIN. DO NOT BREAK, CRUSH, DISSOLVE OR CHEW 100 tablet 5 atorvastatin (Lipitor) 20 MG tablet Take 20 mg by mouth at bedtime. buPROPion XL (Wellbutrin XL) 150 MG 24 hr tablet TAKE 1 TABLET BY MOUTH EVERY MORNING FOR DEPRESSION D3 Super Strength 50 MCG (2000 UT) capsule TAKE 1 CAPSULE BY MOUTH EVERY MORNING 90 capsule 1 diclofenac (Voltaren) 50 MG EC tablet TAKE 1 TABLET BY MOUTH TWICE DAILY WITH FOOD NEEDED FOR PAIN 60 tablet 2 finasteride (Proscar) 5 MG tablet Take 5 mg by mouth in the morning. lidocaine-prilocaine (Emla) 2.5-2.5 % cream APPLY TO THE AFFECTED AREA(S) THREE TIMES DAILY NEEDED FOR PAIN IN LOWER BACK 30 g 0 tamsulosin (Flomax) 0.4 MG 24 hr capsule Take 0.4 mg by mouth at bedtime. No facility-administered encounter medications on file as of 03/03/2024. Consent Obtained: The risks, benefits, indications, potential complications, and alternatives were explained to the patient and informed consent was obtained with good understanding. Treatment Provided: Dental procedures in this visit D7210 - EXTRACTION, ERUPTED TOOTH REQUIRING REMOVAL OF BONE AND/OR SECTIONING OF TOOTH, AND INCLUDING ELEVATION OF MUCOPERIOSTEAL FLAP IF INDICATED 11 (Completed) Service provider: Shahid Murrieta DDS Billing provider: Shahid Murrieta DDS [id number] - ADJUNCTIVE GENERAL SERVICES - PROFESSIONAL VISITS - CASE PRESENTATION, SUBSEQUENT TO DETAILED AND EXTENSIVE TREATMENT PLANNING (Completed) Service provider: Shahid Murrieta DDS Billing provider: Shahid Murrieta DDS Diagnosis: Severe caries, periodontal disease Topical: 20% Benzocaine Anesthesia: 2% Lidocaine (Xylocaine) w/ 1:100,000 epinephrine Number of Cartridges: 2 Injection Type: Buccal infiltration, Palatal infiltration, and Intrapapillary injection Confirmed profound anesthesia. Pharyngeal curtain and bite block placed. Removed tooth with elevators and forceps. Apices intact. Surgical Extraction: Yes, sectioned tooth with surgical handpiece and bur 151 L Socket curetted & irrigated with sterile water. Compressed alveolar bone. Sutures: None Needed All adjacent teeth intact. Hemostasis achieved. Complications: None. Pt tolerated procedure well. Pt states having analgesics at home. Written and verbal post-op instructions given. Patient discharged in stable condition; ambulatory, alert, and oriented. NV: F/U as needed / Exam ? Upholstery Restorer: Brionna Robins Dentist: Shahid Murrieta DDS documented in this encounter Plan of Treatment Upcoming Encounters Date Type Department Care Team (Late st Contact Info) Description 03/24/2024 10:00 AM EST Office Visit [facility] OPTOMETRY [address] [place] [address] Kuanl, Andreia, OD [address] [place] [address] 06/28/2024 9:00 AM EDT Immunization [facility] [address] [place] [address] documented as of this encounter Procedures Procedure Name Priority Date/Time Associated Diagnosis Comments 11 EXTRACTION, ERUPTED TOOTH REQUIRING REMOVAL OF BONE AND/OR SECTIONING OF TOOTH, AND INCLUDING ELEVATION OF MUCOPERIOSTEAL FLAP IF INDICATED Routine 03/03/2024 8:00 AM EST ADJUNCTIVE GENERAL SERVICES - PROFESSIONAL VISITS - CASE PRESENTATION, SUBSEQUENT TO DETAILED AND EXTENSIVE TREATMENT PLANNING Routine 03/03/2024 8:00 AM EST documented in this encounter Visit Diagnoses Diagnosis Periodontal disease- Primary Unspecified gingival and periodontal disease Severe dental caries documented in this encounter Additional Health Concerns Assessment Noted Time PHQ-9 Depression Total Score: 1 08/25/19 24 9:16 AM EDT documented as of this encounter Care Teams Motor Operator Relationship Specialty Start Date End Date Kiana Loar FNP [address] [place] [address] PCP - General Family Medicine 11/21/21 documented as of this encounter
--- OUTSIDE RECORDS SUMMARY | 2024-03-21 08:11 | XMS_ITS | Encounter Summary ---
Demographics Address [address] [place] [address] [address] [place] [address] Work Phone Mobile Phone Home Phone Preferred Language es Marital Status Jainism Affiliation Unknown Race Other Race Ethnic Group or Author Organization [employer] Address [address] [place] [address] Care Team Providers Care Online Editor Name Role Phone GenoKiana JEANNE Primary Care Provider [phone] Josemanuel Sung MD Unavailable [phone] Encounter Details Date Type Department Care Team (Latest Contact Info) Description 03/15/2024 Travel Social History Tobacco Use Types Packs/Day Years [...] Description 03/24/2024 10:00 AM EST Office Visit [facility] OPTOMETRY [address] [place] [address] Kunal, Andreia, OD [address] [place] [address] 06/28/2024 9:00 AM EDT Immunization [facility] [address] [place] [address] documented as of this encounter Visit Diagnoses Not on filedocumented in this encounter Additional Health Concerns Assessment Noted Time PHQ-9 Depression Total Score: 1 08/25/19 24 9:16 AM EDT documented as of this encounter Care Teams Online Editor Relationship Specialty Start Date End Date Kiana Lora FNP [address] [place] [address] PCP - General Family Medicine 11/21/21 Josemanuel Sung MD [address] [place] [id number] Urology 03/15/24 documented as of this encounter
--- OUTSIDE RECORDS SUMMARY | 2024-03-21 08:11 | XMS_ITS | Encounter Summary ---
Author Organization [employer] Address [address] [place] [address] Care Team Providers Care Cement Finisher Apprentice Name Role Phone Kiana Lora Primary Care Provider [phone] Josemanuel Sung MD Unavailable Reason for Visit * Reason Onset Date Comments Chart Prep 03/15/2024 Encounter Details Date Type Department Care Team ([facility] st Contact Info) Description 03/15/2024 Telephone [facility] [address] [place], [place] [phone] Susanne Shin MA Chart Prep Social History Tobacco Use Types Packs/Day Years [...] encounter Miscellaneous Notes * Telephone Encounter - Susanne Kumar MA - 03/15/2024 8:33 AM EST Chart Prep Labs: not done Images: done Vaccines due: yes Referrals: pending appt Screenings: n/a Overdue care gaps: n/a documented in this encounter Plan of Treatment Upcoming Encounters Date Type Department Care Team (Late st Contact Info) Description 03/24/2024 10:00 AM EST Office Visit [facility] OPTOMET[facility] [address] [place] [address] Kunal, Andreia, OD [address] [place] [address] 06/28/2024 9:00 AM EDT Immunization [facility] MED[facility] [address] [place] [address] documented as of this encounter Visit Diagnoses Not on filedocumented in this encounter Additional Health Concerns Assessment Noted Time PHQ-9 Depression Total Score: 1 08/25/19 9:16 AM EDT documented as of this encounter Care Teams Cement Finisher Apprentice Relationship Specialty Start Date End Date Kiana Lora FNP [address] [place] [address] PCP - General Family Medicine 11/21/21 Josemanuel Sung MD [address] [place] [id number] Urology 03/15/24 documented as of this encounter
--- OUTSIDE RECORDS SUMMARY | 2024-03-21 08:11 | XMS_ITS | Clinical Summary ---
Demographics Address [address] [facility] [place] [address] Work Phone Mobile Phone Home Phone Preferred Language es Marital Status Adventist Affiliation Unknown Race Other Race Ethnic Group or Author Organization [employer] Address [address] [facility] [address] [place] [address] Care Team Providers Care Manager Laboratory Name Role Phone Kiana Lora Primary Care Provider [phone] Josemanuel Sung MD Unavailable [phone] Allergies No known active allergies Medications atorvastatin (Lipitor) 20 MG tablet Take 20 mg by mouth at bedtime. 05/12/19 23 Active buPROPion XL (Wellbutrin XL) 150 MG 24 hr tablet TAKE 1 TABLET BY MOUTH EVERY MORNING FOR DEPRESSION 07/16/19 22 Active finasteride (Proscar) 5 MG tablet Take 5 mg by mouth in the morning. 03/31/19 23 Active tamsulosin (Flomax) 0.4 MG 24 hr capsule Take 0.4 mg by mouth at bedtime. 05/12/19 23 Active D3 Super Strength 50 MCG (2000 UT) capsule TAKE 1 CAPSULE BY MOUTH EVERY MORNING 90 capsule 1 11/02/19 24 Active diclofenac (Voltaren) 50 MG EC tabletIndicati ons:Intermitte nt low back pain TAKE 1 TABLET BY MOUTH TWICE DAILY WITH FOOD NEEDED FOR PAIN 60 tablet 2 02/04/20 24 Active cetirizine (ZyrTEC) 10 MG tabletIndicati ons:Acute effusion of right ear Take 1 tablet (10 mg) by mouth Once per day. 90 tablet 03/15/19 25 026 Active fluticasone (Flonase) 50 MCG/ACT nasal sprayIndicatio ns:Acute effusion of right ear Administer 1-2 sprays into each nostril Once per day. Shake gently. Before first use, prime pump. After use, clean tip and replace cap. 16 g 2 03/15/19 25 026 Active lidocaine-pril ocaine (Emla) 2.5-2.5 % creamIndicatio ns:Anterolisth esis of lumbosacral spine APPLY TO THE AFFECTED AREA(S) THREE TIMES DAILY NEEDED FOR PAIN IN LOWER BACK 30 g 2 03/15/19 25 Active acetaminophen (Tylenol 8 Hour) 650 MG ER tabletIndicati ons:Anterolist hesis of lumbosacral spine TAKE 1 TABLET BY MOUTH EVERY 8 HOURS NEEDED FOR PAIN. DO NOT BREAK, CRUSH, DISSOLVE OR CHEW 100 tablet 5 03/15/19 25 Active lidocaine-pril ocaine (Emla) 2.5-2.5 % cream APPLY TO THE AFFECTED AREA(S) THREE TIMES DAILY NEEDED FOR PAIN IN LOWER BACK 30 g 10/23/19 23 025 Discontinued(Re order (will not trigger notification to Pharmacy)) acetaminophen (Tylenol 8 Hour) 650 MG ER tablet TAKE 1 TABLET BY MOUTH EVERY 8 HOURS NEEDED FOR PAIN. DO NOT BREAK, CRUSH, DISSOLVE OR CHEW 100 tablet 5 09/07/19 24 025 Discontinued(Re order (will not trigger notification to Pharmacy)) Active Problems Problem Noted Date Diagnosed Date Anterolisthesis of lumbosacral spine 03/15/2024 Overview (03/15/2024): Lumbar x-ray completed August 2023: 1. Grade 2 anterolisthesis of L5 on S1 with bilateral pars defects at L5-S1. 2. Irwx-ou-jfuskhvw multilevel degenerative disc disease in the lumbar spine. 3. Ifjh-ys-ubazagou right convex scoliosis Assessment & Plan (03/15/2024 6:03 PM EST): No red flag symptoms Reports well-controlled at this time with topical analgesics and APAP as needed Follow-up if interested in referral to physical therapy or physiatry Encouraged to continue with pharm and non-pharm tx modalities Severe dental caries 03/03/2024 Periodontal disease 02/03/2023 Healthcare maintenance 12/30/2022 Overview (08/26/2023): Last PE: 08/25/23 PSA: following with [facility] Urology - Dr. Sung Colonoscopy: Last completed April 2015, due for repeat April 2025 Dental: [facility] Dental Assessment & Plan (12/30/2022 2:45 PM EST): -Labs and STI WNL August 2022 Benign prostatic hyperplasia 05/27/2021 Overview (08/25/2023): -History of lower urinary tract symptoms and gross hematuria -Followed by Dr. Sung - [facility] Urology -Continue with tamsulosin 0.4mg daily -Continue with finasteride 5mg daily -Pt reports symptoms are well controlled with current management Intermittent low back pain 03/09/2017 Assessment & Plan (08/30/2022 11:03 AM EDT): ?? No red flag symptoms ?? Continue with topical analgesic and symptomatic management ?? Previously referred to PT, although pt declines at this time as has been managing well with stretching and exercise equipment at home Depressive disorder 03/12/2015 Assessment & Plan (08/26/2023 7:07 AM EDT): Patient Health Questionnaire-9 Score: 1 (08/25/2023 9:16 AM) Patient Health Questionnaire-2 Score: 0 (08/25/2023 9:16 AM) Well controlled at this time Follow up if interested in resuming therapy services in the future Idiopathic scoliosis 03/12/2015 Vitamin D deficiency 03/12/2015 Assessment & Plan (08/26/2023 7:07 AM EDT): Continues with Vit D supplementation - 2000 units daily Check Vit D level Encounters Date Type Department Care Team Description 03/15/2024 11:15 AM EST Office Visit [facility] MEDICINE [address] [place] [address] Kiana Lora FNP Anterolisthesis of lumbosacral spine (Primary Dx); Encounter for immunization; Acute effusion of right ear 03/15/2024 Travel 03/15/2024 Telephone [facility] [address] [place] [address] Susanne Shin MA Chart Prep 03/03/2024 8:00 AM EST Office Visit [facility] ADULT DENTAL [address] [place] [address] Shahid Murrieta DDS Periodontal disease (Primary Dx); Severe dental caries 02/04/2024 Refill [facility] [address] [place] [address] Kiana Lora FNP Intermittent low back pain 01/25/2024 Telephone [facility] [address] [place] [address] Kiana Lora FNP February recall from Last 3 Months Immunizations Name Administration Dates Next Due Hep A, Adult 05/13/2011,02/06/2010 Hep B, adult 05/13/2011,02/06/2010,09/16/2006 INFLUENZA INJECTABLE QUADRIV ALANT CCIIV4 MDCK Multi-dose vial 03/02/2019 Influenza Injectable Quadriv alant Preservative Free IIV4 MDCK 12/11/2019 Influenza injectable quadriv alent IIV4 with preservative 01/03/2018,12/07/2016,12/06/2015 Influenza injectable quadriv alent preservative free 12/30/2022,11/21/2021,02/04/2021 Influenza, High Dose Seasona l, Preservative Free 03/15/2024 Pfizer Covid-19 Vaccine 12+ 03/15/2024 Pneumococcal Conjugate PCV 20 12/30/2022 Pneumococcal Polysaccharide PPSV23 05/13/2011 TD (adult), 2 Lf tetanus tox oid, preservative free, adsorbed 06/23/2006 Tdap 06/26/2014 Zoster, Recombinant 12/11/2019,03/02/2019 Family History Medical History Relation Name Comments Coronary artery disease Father Prostate cancer Maternal Grandfather Alzheimer's disease Mother Developmental delay Sister 1 Seizures Sister 1 Stroke Sister 2 Relation Name Status Comments Father Maternal Grandfather Mother Sister 1 Sister 2 Social History Tobacco Use Types Packs/Day Years Used Date Smoking Tobacco: Former Cigarettes Tobacco Cessation:Counseling Given: Not Answered Comments:15 years ago. 12/30/2022 Alcohol Use Standard Drinks/Week Comments Never 0 [...] not to disclose 2021 10:17 AM EDT Last Filed Vital Signs Vital Sign Reading [...] Mass Index 22.36 03/15/2024 11:16 AM EST Plan of Treatment Upcoming Encounters Date Type Department Care Team (Late st Contact Info) Description 03/24/2024 10:00 AM EST Office Visit [facility] OPTOMETRY [address] [place] [address] KunalAndreia, OD [address] [place] [address] 06/28/2024 9:00 AM EDT Immunization [facility] [address] [place] [address] Health Maintenance Due Date Last Done Comments CT Colonography 1958 FIT DNA/Cologuard 1958 FIT 1958 FOBT 1960 Sigmoidoscopy 1958 Dental Oral Exam 04/16/2019 10/14/2018, , 08/13/2017, Additional history exists Dental Prophylaxis 07/24/2021 01/22/2021, 0 10/14/2018, 01/28/2018, Additional history exists Dental X-Ray: Bitewings 01/23/2022 01/23/20 21, 10/14/2018, 07/28/2017, Additional history exists Dental X-Ray: Full Mouth 01/24/2024 01/22/2021, 06/15 DTaP/Tdap/Td Vaccines (2 - Td or Tdap) 06/26/2024 06/26/2014, 06/23/2006 Alcohol/Substance Use Screening 08/24/2024 08/25/2023 Depression Screening 08/24/2024 08/25/2023, 08/25/19 24 SDOH Screening 08/24/2024 08/25/2023 Tobacco Screening 03/15/2025 03/15/2024 Colonoscopy 04/15/2025 04/16/2015 Colorectal Cancer Screening 04/15/2025 Lipid Panel 10/13/2028 10/14/2023, 08/15, 09/07/2022, Additional history exists RSV Patients and Patients Aged 60 years or older (1 - 1-dose 75+ series) 2033 Hepatitis A Vaccines Aged Out 05/13/2011, 02/07/20 10 No longer eligible based on patient's age to complete this topic Hepatitis B Vaccines Completed 05/13/2011, 02/06/2010, 09/16/2006 Zoster Vaccines Completed 12/11/2019, 03/02/2019 Hepatitis C Screening Completed 09/07/2022 Pneumococcal Vaccine: 50+ Years Completed 12/30/2022, 05/13/2011 COVID-19 Vaccine Completed 03/15/2024, 08/2021, 02/04/2021, Additional history exists Influenza Vaccine Completed 03/15/2024, , 11/21/2021, Additional history exists HIB Vaccines Aged Out No longer eligi ble based on patient's age to complete this topic HPV Vaccines Aged Out No longer eligi ble based on patient's age to complete this topic IPV Vaccines Aged Out No longer eligi ble based on patient's age to complete this topic Meningococcal Vaccine Aged Out No rafa scott eligible based on patient's age to complete this topic RSV under 20 months Aged Out No longe r eligible based on patient's age to complete this topic Rotavirus Vaccines Aged Out No longer eligible based on patient's age to complete this topic Procedures Procedure Name Priority Date/Time Associated Diagnosis Comments ADJUNCTIVE GENERAL SERVICES - PROFESSIONAL VISITS - CASE PRESENTATION, SUBSEQUENT TO DETAILED AND EXTENSIVE TREATMENT PLANNING Routine 03/03/2024 8:00 AM EST 11 EXTRACTION, ERUPTED TOOTH REQUIRING REMOVAL OF BONE AND/OR SECTIONING OF TOOTH, AND INCLUDING ELEVATION OF MUCOPERIOSTEAL FLAP IF INDICATED Routine 03/03/2024 8:00 AM EST LIPID PANEL, STANDARD Routine 10/14/2023 8:15 AM EDT Anemia, unspecified type HEPATITIS C VIRAL RNA, QUANTITATIVE, REAL-TIME PCR Routine 09/07/2022 7:51 AM EDT Healthcare maintenance PROPHYLAXIS - ADULT Routine 01/22/2021 1 2:00 AM EST DIAGNOSTIC - DIAGNOSTIC IMAGING - INTRAORAL - COMPREHENSIVE SERIES OF RADIOGRAPHIC IMAGES Routine 01/22/2021 12:00 AM EST PERIODIC ORAL EVALUATION - ESTABLISHED PATIENT Routine 10/14/2018 12:00 AM EDT COLONOSCOPY Routine 04/16/2015 from Last 3 Months or Most Recently Relevant to Health Maintenance Results * Lipid Panel, Standard (10/14/2023 8:15 AM EDT) Triglycerides 62 <150 mg/dL [facility] Comment:Desirable Triglyceri de: less than 150 mg/dLBorderline High Triglyceride 150-199 mg/dLHigh Triglyceride: 200-499 mg/dLVery High Triglyceride: greater than or equal to 5OO mg/dL Cholesterol 158 <200 mg/dL [facility] Comment:Desirable Cholestero l: less than 200 mg/dLBorderline High Cholesterol: 200-239 mg/dLHigh Cholesterol: greater than 239 mg/dL LDL Cholesterol Calculated 99 <100 mg/dL [facility] Comment:Desirable LDL: less than 100 mg/dLNear Optimal/Above Optimal LDL: 110- 129 mg/dLBorderline High LDL: 130-159 mg/dLHigh LDL: 160-189 mg/dLVery High LDL: greater than or equal to 190 mg/dL HDL Cholesterol 47 >40 mg/dL [facility] Comment:Desirable HDL: great er than 40 mg/dL Note: This HDL assay may give artificially low results in patients with liver disease. 10/14/2023 8:15 AM EDT 10/14/2023 11:10 AM EDT us Kiana Lora TREATER LAB BLOOD ORDERABLES Final Res ult [facility] [address] [place] [phone] * Hepatitis C Viral RNA, Quantitative, Real-Time PCR (09/07/2022 7:51 AM EDT) Hepatitis C Viral Load <15 NOT DETECTED NOT DETECTED IU/mL [facility] HCV Log PCR <1.18 NOT DETECTED NOT DETECTED Log IU/mL [facility] Comment:This test was perfor med using Real-Time Polymerase ChainReaction.Reportable Range: 15 IU/mL to 100,000,000 IU/mL(1.18 Log IU/mL to 8.00 Log IU/mL).The analytical performance characteristics of thisassay have been determined by [employer].The modifications have not been cleared or approved bythe FDA. This assay has been validated pursuant to theCLIA regulations and is used for clinical purposes.For more information on this test, go to:http://education.[employer]/faq/KTQ28c4(This link is being provided for informational/educational purposes only.)THIS TEST WAS PERFORMED AT:[facility] [place] [id number] CAST MD Blood 09/07/2022 7:51 AM EDT 09/07/2022 7:51 AM EDT Kiana Lora TREATER LAB BLOOD ORDERABLES Final Res ult [facility] [address] [place] [address] [phone] * Colonoscopy (04/16/2015) Colonoscopy Normal Normal Narrative Maureen Auguste - 04/16/2015 Repeat in 10 years Historical Provider HEALTH MAINTENANCE Final Result from Last 3 Months or Most Recently Relevant to Health Maintenance Insurance [facility]ARE < 65 D[facility]AL - [facility] Care Teams Manager Laboratory Relationship Specialty Start Date End Date Kiana Lora FNP [address] [place] [address] PCP - General Family Medicine 11/21/21 Josemanuel Sung MD [address] [place] [address] Urology 03/15/24
--- OUTSIDE RECORDS SUMMARY | 2024-03-21 08:11 | XMS_ITS | Encounter Summary ---
Author Organization [facility] Address [address] [place] [address] 7[address] [place] [address] Care Team Providers Care Surgical Lead Name Role Phone Kiana Lora Primary Care Provider [phone] Josemanuel Sung MD Unavailable [phone] Reason for Visit * Reason Comments Med Refill Encounter Details Date Type Department Care Team (Late Contact Info) Description 08/03/2022 Refill [facility] [address] [place], [place] [phone] Susan Watson FNP [address] [place] [address] Dept [place] [address] Intermittent low back pain Social History Tobacco Use Types Packs/Day Years Used Date Smoking Tobacco: Never Depression Answer Date Recorded Patient Health Questionnaire-9 Score 0 05/26/2022 Depression Answer Date Recorded Patient Health Questionnaire-2 [...] Description 03/24/2024 10:00 AM EST Office Visit [facility] OPTOMETRY [address] [place], [place] [phone] Andreia Syed, OD [address] [place], [place] [phone] 06/28/2024 9:00 AM EDT Immunization [facility] [address] [place] [address] documented as of this encounter Visit Diagnoses Diagnosis Intermittent low back pain documented in this encounter Additional Health Concerns Assessment Noted Time PHQ-9 Depression Total Score: 0 05/27/19 23 11:47 AM EDT documented as of this encounter Care Teams Surgical Lead Relationship Specialty Start Date End Date Kiana Lora FNP [address] [place] [address] PCP - General Family Medicine 11/21/21 Josemanuel Sung MD [address] [place] [address] Urology 03/15/24 documented as of this encounter
[2024-03-21 11:32] LABS: MANUAL DIFF FLAG NO
[2024-03-21 11:44] LABS: Basophils Percent Auto 0.6 % (0-2); Eosinophils Absolute Auto 0.2 X10*3/uL (0.0-0.4); Eosinophils Percent Auto 3.8 % (0-4); Hematocrit 39.7 % (42.0-52.0); Hemoglobin 12.7 g/dl (14.0-18.0); Imm Gran Abs Auto 0.05 X10*3/uL (0.00-0.03); Lymphocytes Percent Auto 40.5 % (20-40); Mean Corpuscular Hemoglobin 28.7 pg (27.0-33.0); Mean Corpuscular Volume 89.6 fL (80.0-98.0); Mean Platelet Volume 10.1 fL (9.4-12.4); Monocytes Absolute Auto 0.4 X10*3/uL (0.1-1.2); Monocytes Percent Auto 7.6 % (2-11); Neutrophils Absolute Auto 2.3 x10*3/uL (2.0-8.3); Neutrophils Percent Auto 46.5 % (45-73); Platelet Count 222 X10*3/uL (160-400); Red Blood Count 4.43 X10*6/uL (4.60-5.80); Red Cell Distribution Width 13.2 % (11.0-16.0)
== END 2024-03-21 08:06 | disposition home or self-care (01) ==
LOC: HO.HHCL 08:05
PROVIDERS: Visit Provider Registered Nurse
DX: D64.9 Anemia, unspecified (principal)
CPT/HCPCS: 36415; 85025

== ENCOUNTER 2024-03-28 10:39 | Outpatient (AMB) | payer OTHER, SELFPAY ==
--- NOTE | 2024-03-28 10:45 | MHC.OFFVIS ---
Intake Visit Reasons: PSA/PVR(PSA Done 09/2023) Intake Note: Patient is present for PSA/PVR Urology Medication:FINASTERIDE, TAMSULOSIN Antibiotic Allergy:NONE Blood Thinner:NONE Last PVR:29ML'S Todays PVR:34ML'S Office Clerk Required: No Allergies No Known Allergies Allergy (Verified 03/28/24 10:46) HPI Comments Details: Matthew is a very pleasant male. He is seen for the following urologic conditions - gross hematuria - persistent microscopic hematuria - lower urinary tract symptoms Jamaican translation provided in office by qualified medical nurse PVR remains low 30 cc Remains on combination therapy Had symptoms from passing a stone recently Will get imaging on his kidney Lower urinary tract symptoms Current therapy includes Flomax and finasteride PSA 10/08 0.7 Gross hematuria Intermittent for past 6 months - since early 2020 Was waking 3 times at night but PCP gave Flomax and has responded Employment history working in [employer] Smoking history 2-3 cigarettes per day for 20 years but ceased 15 years ago - Imaging - 12/05 CT urogram no evidence of lesions - Cytology - 12/05 NAD [facility] Medical History History of kidney stones Gross hematuria Umbilical hernia Surgical History History of surgery Social History (System 08/27/23 @ 13:12 by Kayla Ya) Patient Tobacco Use Status: Former Tobacco user Review of Systems Const Denies chills and Denies fever(s) Card Reports no additional complaints and Denies syncope Resp Denies cough GI Denies abdominal pain and Denies heartburn Reports as per HPI and Denies change in libido Neuro Denies syncope Psych Denies change in libido Endo Denies change in libido Physical Exam Const General: cooperative, healthy appearing, comfortable and no acute distress Orientation/consciousness: patient oriented x3 HEENT Face and sinus: Yes normal facial exam Mouth: moist mucous membranes Neck Neck: Yes normal visual inspection, Yes full ROM and Yes trachea midline Chest Chest palpation & inspection: normal inspection of the chest Resp Effort & Inspection: normal respiratory effort, able to speak in complete sentences and no respiratory distress GI Inspection: Yes normal to inspection Back/Spine/Pelvis Cervical Spine: normal cervical lordosis Thoracic/Lumbar Spine: thoracic and lumbar spine normal to inspection Skin General skin exam: no rashes or lesions noted Neuro General: patient oriented x3, gait normal, tone normal and moves all extremities Extrem General: Yes normal to inspection and Yes capillary refill normal Office Procedures Post Void Residual Post Residual Void Post Void Residual (PVR): 34 31558-Uvab Void Residual by ultrasound Results AMB Urinalysis, Automated UA Leukoctes 0 Skinny/uL Last Edit by SELENA Murphy on 03/28/24 11:03 UA Nitrite Negative Last Edit by SELENA Murphy on 03/28/24 11:03 UA Urobilinogen 3.5 mg/dL Last Edit by SELENA Murphy on 03/28/24 11:03 UA Protein 0 mg/dL Last Edit by SELENA Murphy on 03/28/24 11:03 UA pH 7.0 Last Edit by SELENA Murphy on 03/28/24 11:03 UA Blood 200 Paxton/uL Last Edit by SELENA Murphy on 03/28/24 11:03 UA Specific Aptos 1.010 Last Edit by SELENA Murphy on 03/28/24 11:03 UA Ketone Negative Last Edit by SELENA Murphy on 03/28/24 11:03 UA Bilirubin 0 mg/dL Last Edit by SELENA Murphy on 03/28/24 11:03 UA Glucose 0 mg/dL Last Edit by SELENA Murphy on 03/28/24 11:03 Results Reviewed Results Reviewed: Laboratory Last Values Urine pH (Auto) 7.0 03/28/24 11:02 Specific Aptos (Auto) 1.010 03/28/24 11:02 Urine Protein (Auto) 0 mg/dL 03/28/24 11:02 Glucose (UA)(Auto) 0 mg/dL 03/28/24 11:02 Urine Ketones (Auto) Negative 03/28/24 11:02 Urine Blood (Auto) 200 Paxton/uL 03/28/24 11:02 Urine Nitrite (Auto) Negative 03/28/24 11:02 Urine Bilirubin (Auto) 0 mg/dL 03/28/24 11:02 Urine Urobilinogen (Auto) 3.5 mg/dL 03/28/24 11:02 Leukocyte Esterase (Auto) 0 Skinny/uL 03/28/24 11:02 Assessment & Plan Assessment & Plan (1) Nephrolithiasis: Code(s): N20.0 - Calculus of kidney Category: Medical Plan Renal ultrasound Tele follow-up Orders: Orders AMB Urinalysis Automated Today Z13.9 - Encounter for screening, unspecified US renal BI Today N20.0 - Calculus of kidney Patient Instructions: This note is constructed using voice recognition software. While every effort has been made to ensure accuracy cup setter lockstitch errors may have been included. Imaging studies, laboratory and physical exam results were discussed and reviewed in detail. No major barriers to patient understanding were identified. An opportunity to ask questions regarding the treatment plan was provided. All questions were answered. The patient expressed understanding and agreement with the above treatment plan. The patient is aware they should contact our office by phone for worsening of their current condition or the appearance of new urologic symptoms. Compliance is encouraged with any medications and followup testing that is ordered. It is a privilege to participate in the urologic care of your patient. If you have any questions or concerns regarding treatment for the above conditions, or other urologic issues, please do not hesitate to contact me. The office telephone contact is [phone]. Sincerely, Dr Josemanuel Sung MD, [facility] - Urology Compassionate Specialist Care for the Genitourinary System Coding Level of Care Code Est Pt Level 4 (88027) Diagnoses Nephrolithiasis N20.0 CPT Codes Post Residual Void - PVR CPT Code: 53272-Rjwo Void Residual by ultrasound ([id number])
== END 2024-03-28 11:21 | disposition home or self-care (01) ==
LOC: HO.HUSH 10:39
PROVIDERS: PCP Registered Nurse; Visit Provider Urology
DX: Z13.9 Encounter for screening, unspecified (principal); N20.0 Calculus of kidney
CPT/HCPCS: 99214

== ENCOUNTER → 2024-03-28 10:39 | Outpatient (BNVA) | payer OTHER, SELFPAY | PROVIDERS: PCP Registered Nurse; Visit Provider Urology | DX: N20.0 Calculus of kidney (principal); Z87.448 Personal history of other diseases of urinary system | CPT/HCPCS: 51798; 81003; 99212 ==

== ENCOUNTER → 2024-05-26 14:54 | Outpatient (BNV) | payer OTHER, SELFPAY | PROVIDERS: PCP Registered Nurse; Referring Provider Registered Nurse; Visit Provider Internal Medicine | DX: D64.9 Anemia, unspecified (principal) | CPT/HCPCS: 99204; G2211 ==

== ENCOUNTER 2024-05-31 12:41 | Outpatient (REF) | payer OTHER, SELFPAY ==
--- NOTE | ~2024-05-31 | US_ITS ---
CLINICAL HISTORY: N20.0 - Calculus of kidney US renal Comparison: None Findings: Right kidney 10.8 cm length. 4 mm and 3 mm lower pole stones. Isolated lower pole calyceal dilation. 1 cm lower pole cyst. Left kidney 10.9 cm length. 12 mm upper, 5 mm mid and 5 mm lower pole nonobstructing stones. No other significant abnormality. No bilateral hydronephrosis. Normal bilateral renal echogenicity. Impression: Bilateral renal stones as above Right lower pole calyceal dilation noted This document has been electronically signed by: Amish Martell MD on 05/31/2024 22:05:55
--- OUTSIDE RECORDS SUMMARY | 2024-05-31 15:00 | XMS_ITS | Encounter Summary ---
Author Organization [facility] Address [address] [facility] [address]t [place] [address] Care Team Providers Care Marine Equipment Test Engineer Name Role Phone Kiana Lora Primary Care Provider [phone] Josemanuel Sung MD Unavailable [phone] Encounter Details Date Type Department Care Team (Latest Contact Info) Description 10/14/2018 Abstract [facility] CON[facility] Dental, Provider, DDS Social History [...] Care Team (Late st Contact Info) Description 06/28/2024 9:00 AM EDT Immunization [facility] [address] [place] [address] documented as of this encounter Visit Diagnoses Not on filedocumented in this encounter Care Teams Marine Equipment Test Engineer Relationship Specialty Start Date End Date Kiana Lora FNP [address] [place] [address] PCP - General Family Medicine 11/21/21 Josemanuel Sung MD [address] [place] [address] Urology 03/15/24 documented as of this encounter
--- OUTSIDE RECORDS SUMMARY | 2024-05-31 15:00 | XMS_ITS | Encounter Summary ---
Author Organization [employer] Address [address] [place] [address] Care Team Providers Care Lab Aid Name Role Phone Kiana Lora Primary Care Provider [phone] Josemanuel Sung MD Unavailable [phone] Encounter Details Date Type Department Care Team (Late st Contact Info) Description 01/01/2023 Abstract [facility] MEDICINE [address] [place], [place] [phone] Maureen Auguste Social History Tobacco Use Types [...] t he electric, gas, oil or water [employer] threatened to shut off services in your [...] Info) Description 06/28/2024 9:00 AM EDT Immunization [facility] [address] [place] [address] documented as of this encounter Procedures Procedure [...] documented as of this encounter Care Teams Lab Aid Relationship Specialty Start Date End Date Kiana Lora FNP [address] [place] [address] PCP - General Family Medicine 11/21/21 Josemanuel Sung MD [address] [place] [address] Urology 03/15/24 documented as of this encounter
--- OUTSIDE RECORDS SUMMARY | 2024-05-31 15:00 | XMS_ITS | Encounter Summary ---
Author Organization [employer] [facility] Address [address] [place] [address] 7[address] [place] [address] Care Team Providers Care Favor Maker Name Role Phone Kiana Lora Primary Care Provider [phone] Josemanuel Sung MD Unavailable [phone] Reason for Visit * Reason Comments Med Refill Encounter Details Date Type Department Care Team (Late st Contact Info) Description 08/03/2022 Refill [facility] [address] [place] [phone] Susan Watson FNP [address] [address] Dept [place] [address] Intermittent low back pain Social History Tobacco [...] Info) Description 06/28/2024 9:00 AM EDT Immunization [facility] [address] [place] [phone] documented as of this encounter Visit Diagnoses Diagnosis Intermittent low back pain documented in this encounter Additional Health Concerns Assessment Noted Time PHQ-9 Depression Total Score: 0 05/27/19 23 11:47 AM EDT documented as of this encounter Care Teams Favor Maker Relationship Specialty Start Date End Date Kiana Lora FNP [address] [place] [address] PCP - General Family Medicine 11/21/21 Josemanuel Sung MD [address] [place] [id number] Urology 03/15/24 documented as of this encounter
--- OUTSIDE RECORDS SUMMARY | 2024-05-31 15:00 | XMS_ITS | Encounter Summary ---
Author Organization [employer] [facility] Address [address] [facility] 7t [place] [address] Care Team Providers Care Mattress Packer Name Role Phone Kiana Lora Primary Care Provider [phone] Josemanuel Sung MD Unavailable [phone] Encounter Details Date Type Department Care Team (Latest Contact Info) Description 01/22/2021 Abstract [facility] CONVERSIONS Dental, Provider, DDS Social History Tobacco [...] Info) Description 06/28/2024 9:00 AM EDT Immunization [facility] MEDICINE [address] [place] [address] documented as of this encounter Visit Diagnoses Not on filedocumented in this encounter Care Teams Mattress Packer Relationship Specialty Start Date End Date Kiana Lora FNP [address] [place] [address] PCP - General Family Medicine 11/21/21 Josemanuel Sung MD [address] [place] [address] Urology 03/15/24 documented as of this encounter
--- OUTSIDE RECORDS SUMMARY | 2024-05-31 15:00 | XMS_ITS | Clinical Summary ---
Demographics Address [address] [place] [address] [address] [place] [address] Work Phone Mobile Phone Home Phone Preferred Language es Marital Status Rastafari Affiliation Unknown Race Other Race Ethnic Group or Author Organization [employer] Address [address] [facility] 7t [place] [address] Care Team Providers Care Windshield Installer Name Role Phone Kiana Lora Primary Care Provider [phone] Josemanuel Sung MD Unavailable [phone] Allergies No known active allergies Medications [...] by mouth at bedtime. 05/12/19 23 Active diclofenac (Voltaren) 50 MG EC tabletIndicatio ns:Intermittent low back pain TAKE 1 TABLET BY MOUTH TWICE DAILY WITH FOOD NEEDED FOR PAIN 60 tablet 2 02/04/20 24 Active cetirizine (ZyrTEC) 10 MG tabletIndicatio ns:Acute effusion of right ear Take 1 tablet (10 mg) by mouth Once per day. 90 tablet 03/15/19 25 026 Active fluticasone (Flonase) 50 MCG/ACT nasal sprayIndication s:Acute effusion of right ear Administer 1-2 sprays into each nostril Once per day. Shake gently. Before first use, prime pump. After use, clean tip and replace cap. 16 g 2 03/15/19 25 026 Active lidocaine-prilo makayla (Emla) 2.5-2.5 % creamIndication s:Anterolisthes is of lumbosacral spine APPLY TO THE AFFECTED AREA(S) THREE TIMES DAILY NEEDED FOR PAIN IN LOWER BACK 30 g 2 03/15/19 25 Active acetaminophen (Tylenol 8 Hour) 650 MG ER tabletIndicatio ns:Anterolisthe sis of lumbosacral spine TAKE 1 TABLET BY MOUTH EVERY 8 HOURS NEEDED FOR PAIN. DO NOT BREAK, CRUSH, DISSOLVE OR CHEW 100 tablet 5 03/15/19 25 Active D3 Super Strength 50 MCG (2000 UT) capsule TAKE 1 CAPSULE BY MOUTH EVERY DAY IN THE MORNING 90 capsule 1 05/12/19 25 Active D3 Super Strength 50 MCG (2000 UT) capsule TAKE 1 CAPSULE BY MOUTH EVERY MORNING 90 capsule 1 11/02/19 24 025 Discontinued Active Problems Problem Noted Date Diagnosed Date Anterolisthesis of lumbosacral spine 03/15/2024 Overview (03/15/2024): Lumbar x-ray completed August 2023: 1. Grade 2 anterolisthesis of L5 on S1 with bilateral pars defects at L5-S1. 2. Tzek-ai-lgyicykc multilevel degenerative disc disease in the lumbar spine. 3. Xpsl-ca-hqpepyfb right convex scoliosis Assessment & Plan (03/15/2024 6:03 PM EST): No red flag symptoms Reports well-controlled at this time with topical analgesics and APAP as needed Follow-up if interested in referral to physical therapy or physiatry Encouraged to continue with pharm and non-pharm tx modalities Severe dental caries 03/03/2024 Periodontal disease 02/03/2023 Healthcare maintenance 12/30/2022 Overview (08/26/2023): Last PE: 08/25/23 PSA: following with [facility] Urology - Dr. Sung Colonoscopy: Last completed April 2015, due for repeat April 2025 Dental: [facility] Dental Assessment & Plan (12/30/2022 2:45 PM EST): -Labs and STI WNL August 2022 Benign prostatic hyperplasia 05/27/2021 Overview (08/25/2023): -History of lower urinary tract symptoms and gross hematuria -Followed by Dr. Sung - [facility] Urology -Continue with tamsulosin 0.4mg daily -Continue [...] Encounters Date Type Department Care Team Description 05/10/2024 Refill [facility] CHC MED & PEDS [address] [place], [place] [phone] Kiana Lora FNP 05/09/2024 2:00 PM EDT Office Visit [facility] OPTOMETRY [address] [place], [place] [phone] Kunal, Andreia, OD Open angle with borderline findings, low risk (Primary Dx); Nuclear senile cataract of both eyes; White without pressure of peripheral retina of right eye; Presbyopia 05/09/2024 Travel 03/27/2024 Telephone [facility] MEDICINE [address] [place], [place] [phone] Kanika Gallagher, RN Results 03/15/2024 11:15 AM EST Office Visit [facility] MEDICINE [address] [place], [place] [phone] Kiana Lora FNP Anterolisthesis of lumbosacral spine (Primary Dx); Encounter for immunization; Acute effusion of right ear 03/15/2024 Travel 03/15/2024 Telephone [facility] MEDICINE [address] [place] [address] Susanne Shin MA Chart Prep 03/03/2024 8:00 AM EST Office Visit [facility] ADULT DENTAL [address] [place] [address] Shahid Murrieta DDS Periodontal disease (Primary Dx); Severe dental caries from Last 3 Months Immunizations Name Administration [...] Info) Description 06/28/2024 9:00 AM EDT Immunization [facility] MEDICINE [address] [place] [address] Health Maintenance Due Date Last Done Comments [...] 08/25/2023, 08/25/19 24 SDOH Screening 08/24/2024 08/25/2023 Colonoscopy 04/15/2025 04/16/2015 Colorectal Cancer Screening 04/15/2025 Tobacco Screening 05/22/2025 05/22/2024 Lipid Panel 10/13/2028 10/14/2023, 08/15, 09/07/2022, Additional history exists RSV Patients and Patients Aged 60 years or older (1 - 1-dose 75+ series) 2033 Hepatitis A Vaccines Aged Out 05/13/2011, 02/07/20 No longer eligible based on patient's age [...] Procedure Name Priority Date/Time Associated Diagnosis Comments OCT, OPTIC NERVE - OU - BOTH EYES Routine 05/09/2024 4:27 PM EDT Open angle with borderline findings, low risk CBC WITH AUTO DIFFERENTIAL Routine 03/21/2024 8:07 AM EST Low hemoglobin CASE PRESENTATION, DETAILED AND EXTENSIVE TREATMENT PLANNING Routine 03/03/2024 8:00 AM EST 11 EXTRACTION, ERUPTED TOOTH REQ REMOVAL OF BONE AND/OR SECTIONING OF TOOTH Routine 03/03/2024 8:00 AM EST LIPID PANEL, STANDARD Routine 10/14/2023 8:15 AM EDT Anemia, unspecified type HEPATITIS C VIRAL RNA, QUANTITATIVE, REAL-TIME PCR Routine 09/07/2022 7:51 AM EDT Healthcare maintenance PROPHYLAXIS - ADULT Routine 01/22/2021 1 2:00 AM EST INTRAORAL - COMPLETE SERIES OF RADIOGRAPHIC IMAGES Routine 01/22/2021 12:00 AM EST PERIODIC ORAL EVALUATION - ESTABLISHED PATIENT Routine 10/14/2018 12:00 AM EDT HM COLONOSCOPY Routine 04/16/2015 from Last 3 Months or Most Recently Relevant to Health Maintenance Results * OCT, Optic Nerve - OU - Both Eyes (05/09/2024 4:27 PM EDT) Andreia Lawler, OD - 05/22/2024 3:22 PM EDT Images from the original result were not included. OCT OPTIC NERVE INTERPRETATION Optical Coherence Tomography Interpretation Report Test Details: Measurements: OD ??OS C/D Horizontal 0.77 ??0.80 C/D Vertical 0.70 ??0.74 Disc area 2.09 mm 2 ??2.22 mm 2 RNFL Average 102 microns ??93 microns ?? Test findings: OD: Normal RNFL thickness in all quadrants OS: Borderline RNFL loss in temporal quadrant, normal RNFL thickness in all other quadrants Impression and Plan: Right: 4 micron decrease in average RNFL thickness Left: 4 micron decrease in average RNFL thickness Large nerves with large optic nerve cupping in both eyes. No suspicion for glaucoma at this time. Will monitor here in 1 year. Andreia Syed OD OPHTH TOMOGRAPHY Final Result * (ABNORMAL) CBC auto differential (03/21/2024 8:07 AM EST) White Blood Count 5.0 4.8 - 10.8 X10*3/uL [facility] Red Blood Count 4.43(L) 4.60 - 5.80 X10*6/uL [facility] Hemoglobin 12.7(L) 14.0 - 18.0 g/dl [facility] Hematocrit 39.7(L) 42.0 - 52.0 % [facility] Mean Corpuscular Volume 89.6 80.0 - 98.0 fL [facility] Mean Corpuscular Hemoglobin 28.7 27.0 - 33.0 pg [facility] Mean Corpuscular HGB Conc 32.0 31.0 - 36.0 g/dl [facility] Red Cell Distribution Width 13.2 11.0 - 16.0 % [facility] Platelet Count 222 160 - 400 X10*3/uL [facility] Mean Platelet Volume 10.1 9.4 - 12.4 fL [facility] Neutrophils Percent Auto 46.5 45 - 73 % [facility] Imm Gran Pct Auto 1.0(H) 0.0 - 0.4 % [facility] Lymphocytes Percent Auto 40.5(H) 20 - 40 % [facility] Monocytes Percent Auto 7.6 2 - 11 % [facility] Eosinophils Percent Auto 3.8 0 - 4 % [facility] Basophils Percent Auto 0.6 0 - 2 % [facility] NRBC Pct Auto 0.0 0.0 - 0.2 /100WBC [facility] Neutrophils Absolute Auto 2.3 2.0 - 8.3 x10*3/uL [facility] Imm Gran Abs Auto 0.05(H) 0.00 - 0.03 X10*3/uL [facility] Lymphocytes Absolute Auto 2.0 1.2 - 4.9 X10*3/uL [facility] Monocytes Absolute Auto 0.4 0.1 - 1.2 X10*3/uL [facility] Eosinophils Absolute Auto 0.2 0.0 - 0.4 X10*3/uL [facility] Basophils Absolute Auto 0.0 0.0 - 0.2 X10*3/uL [facility] NRBC Abs Auto 0.000 0.0 - 0.012 X10*3/uL [facility] Blood Venous blood specimen / Unknown 03/21/2024 8:07 AM EST 03/21/2024 11:27 AM EST us Kiana Lora GLOBAL MANAGER LAB BLOOD ORDERABLES Final Res ult [facility] [address] [place] [phone] * Lipid Panel, Standard (10/14/2023 8:15 AM EDT) Triglycerides 62 <150 mg/dL [facility] Comment:Desirable Triglyceri de: less than 150 mg/dLBorderline High Triglyceride 150-199 mg/dLHigh Triglyceride: 200-499 mg/dLVery High Triglyceride: greater than or equal to 5OO mg/dL Cholesterol 158 <200 mg/dL [facility] Comment:Desirable Cholestero l: less than 200 mg/dLBorderline High Cholesterol: 200-239 mg/dLHigh Cholesterol: greater than 239 mg/dL LDL Cholesterol Calculated 99 <100 mg/dL [facility] Comment:Desirable LDL: less than 100 mg/dLNear Optimal/Above Optimal LDL: 110- 129 mg/dLBorderline High LDL: 130-159 mg/dLHigh LDL: 160-189 mg/dLVery High LDL: greater than or equal to 190 mg/dL HDL Cholesterol 47 >40 mg/dL [facility] Comment:Desirable HDL: great er than 40 mg/dL Note: This HDL assay may give artificially low results in patients with liver disease. 10/14/2023 8:15 AM EDT 10/14/2023 11:10 AM EDT us Kiana Lora GLOBAL MANAGER LAB BLOOD ORDERABLES Final Res ult [facility] [address] [place] [phone] * Hepatitis C Viral RNA, Quantitative, Real-Time PCR (09/07/2022 7:51 AM EDT) Hepatitis C Viral Load <15 NOT DETECTED NOT DETECTED IU/mL [facility] HCV Log PCR <1.18 NOT DETECTED NOT DETECTED Log IU/mL [facility] Comment:This test was perfor med using Real-Time Polymerase ChainReaction.Reportable Range: 15 IU/mL to 100,000,000 IU/mL(1.18 Log IU/mL to 8.00 Log IU/mL).The analytical performance characteristics of thisassay have been determined by [employer].The modifications have not been cleared or approved bythe FDA. This assay has been validated pursuant to theCLIA regulations and is used for clinical purposes.For more information on this test, go to:http://education.[facility]/faq/LIZ47r9(This link is being provided for informational/educational purposes only.)THIS TEST WAS PERFORMED AT:[employer] [place] [id number] CAST MD Blood 09/07/2022 7:51 AM EDT 09/07/2022 7:51 AM EDT Kiana Lora GLOBAL MANAGER LAB BLOOD ORDERABLES Final Res ult [facility] [address] [place] [phone] [phone] * Colonoscopy (04/16/2015) Colonoscopy Normal Normal Narrative Maureen Auguste - 04/16/2015 Repeat in 10 years us Historical Provider HEALTH MAINTENANCE Final Result from Last 3 Months or Most Recently Relevant to Health Maintenance Insurance [facility] Care Teams Windshield Installer Relationship Specialty Start Date End Date Kiana Lora FNP [address] [place] [phone] PCP - General Family Medicine 11/21/21 Josemanuel Sung MD [address] [place] [address] Drive [address] [place] [address] Urology 03/15/24
--- OUTSIDE RECORDS SUMMARY | 2024-05-31 15:00 | XMS_ITS | Encounter Summary ---
Author Organization [employer] Address [address] [facility] 7t [place] [address] Care Team Providers Care Development Representative Name Role Phone GenoKiana JEANNE Primary Care Provider [phone] Josemanuel Sung MD Unavailable [phone] Reason for Visit * Reason Comments Med Refill Encounter Details Date Type Department Care Team ([facility] st Contact Info) Description 03/26/2023 Refill [facility] ADULT DENTAL [address] [place], [place] [phone] Shahid Murrieta DDS [address], [place] [phone] Social History Tobacco Use Types Packs/Day Years [...] Info) Description 06/28/2024 9:00 AM EDT Immunization [facility] MEDICINE [address] [place] [address] documented as of this encounter Visit Diagnoses Not on filedocumented in this encounter Additional Health Concerns Assessment Noted Time PHQ-9 Depression Total Score: 0 05/27/19 23 11:47 AM EDT documented as of this encounter Care Teams Development Representative Relationship Specialty Start Date End Date Kiana Lora FNP [address] [place] [address] PCP - General Family Medicine 11/21/21 Josemanuel Sung MD [address] [place] [address] Urology 03/15/24 documented as of this encounter
--- OUTSIDE RECORDS SUMMARY | 2024-05-31 15:00 | XMS_ITS | Encounter Summary ---
Author Organization [employer] Address [address] [facility] 7t [place] [address] Care Team Providers Care Movie Producer Name Role Phone Kiana Lora Primary Care Provider [phone] Josemanuel Sung MD Unavailable [phone] Encounter Details Date Type Department Care Team (Late st Contact Info) Description 04/20/2022 Orders Only [facility] CHC MED & PEDS [address] [place] [address] Sunshine Hernandez LPN Social History Tobacco Use [...] Info) Description 06/28/2024 9:00 AM EDT Immunization [facility] MEDICINE [address] [place] [address] documented as of this encounter Visit Diagnoses Not on filedocumented in this encounter Care Teams Movie Producer Relationship Specialty Start Date End Date Kiana Lora FNP [address] [place] [address] PCP - General Family Medicine 11/21/21 Josemanuel Sung MD [address] [place] [address] Urology 03/15/24 documented as of this encounter
== END 2024-05-31 12:42 | disposition home or self-care (01) ==
LOC: HO.US 12:41
PROVIDERS: PCP Internal Medicine; Visit Provider Urology
DX: N20.0 Calculus of kidney (principal)
CPT/HCPCS: 76775

== ENCOUNTER → 2024-05-31 12:43 | Outpatient (BNV) | payer OTHER, SELFPAY | PROVIDERS: PCP Internal Medicine; Visit Provider Radiology Diagnostic Radiology | DX: N20.0 Calculus of kidney (principal); N28.89 Other specified disorders of kidney and ureter | CPT/HCPCS: 76775 ==

== ENCOUNTER 2024-06-15 11:01 | Outpatient (AMB) | payer OTHER, SELFPAY ==
--- NOTE | 2024-06-15 11:02 | A.OFFVIS_ITS ---
Intake Visit Reasons: US follow up Intake Note: Patient is present for a follow up/US Urology Medication:FINASTERIDE, TAMSULOSIN Antibiotic Allergy:NONE Blood Thinner:NONE Nurse Staff Required: No Allergies No Known Allergies Allergy (Verified 06/15/24 11:09) HPI Comments Details: Matthew is a very pleasant male. He is seen for the following urologic conditions - gross hematuria - persistent microscopic hematuria - lower urinary tract symptoms Telemedicine Evaluation 15 min Consultation [employer] [place] Video Maori translation provided in office by qualified medical instructor Imaging shows 3 stones in left kidney - 12 mm upper pole, 5 mm and 5 mm Does report symptoms This was the side that was recently symptomatic Discussed left ESWL He would like to proceed Nephrolithiasis Imaging - 06/09 renal ultrasound small stones right, 3 stones left 12 mm upper pole Lower urinary tract symptoms Current therapy includes Flomax and finasteride PSA 10/08 0.7 Gross hematuria Intermittent for past 6 months - since early 2020 Was waking 3 times at night but PCP gave Flomax and has responded Employment history working in [employer] Smoking history 2-3 cigarettes per day for 20 years but ceased 15 years ago - Imaging - 12/05 CT urogram no evidence of lesions, 5 mm left nephrolithiasis - Cytology - 12/05 NAD [facility] Medical History History of kidney stones Gross hematuria Umbilical hernia Surgical History History of surgery Family History Sister Colon cancer Uterus cancer Family/Other Colon cancer Father Heart problem Brother Heart problem Mother Heart problem Social History Household Members: Spouse Patient Tobacco Use Status: Former Tobacco user Tobacco use type: Cigar Substance Use Type: Marijuana service: No Current occupational status: unemployed Gender identity: Male Review of Systems Const All systems reviewed & are unremarkable except as noted in HPI and below Reports no additional complaints Resp Reports no additional complaints GI Reports no additional complaints Reports as per HPI Musc Reports no additional complaints Physical Exam Telemedicine evaluation Appropriate responses Regular breathing rate and rhythm HEENT Head: Yes normal to inspection Ears: hearing grossly normal bilaterally Eyes General: appearance normal, both eyes and all related structures Neck Neck: Yes normal visual inspection Chest Chest palpation & inspection: normal inspection of the chest Resp Effort & Inspection: normal respiratory effort and able to speak in complete sentences Telehealth Telehealth Telehealth Platform: [employer] Location of provider rendering services: practice address Location of patient: address on file Patient Identification confirmed using: Name, : Yes Telehealth method: video Patient verbally consented to treatment: Yes Patient verbally consented to billing insurance company: Yes Patient informed of any privacy concerns related to visit: Yes Minutes spent on Phone/Video with Pt.: 15 Assessment & Plan Assessment & Plan (1) Nephrolithiasis: Code(s): N20.0 - Calculus of kidney Category: Medical Plan Extracorporeal Shock Wave Lithotripsy We discussed the nature of the decision and reasonable alternatives for performing the above surgery. Interventions include chemical dissolution, ESWL, ureteroscopy with laser lithotripsy and stent placement, PCNL. Options such as medical therapy were discussed. The relative uncertainties and benefits related to each alternate procedure were adequately discussed. General surgical risks including, but not limited to, pain, bleeding, infection, myocardial infarction, pulmonary embolus, deep vein thrombosis and cerebrovascular accident which may result in further hospitalization were discussed. Full disclosure of the procedure as well as all major risks, benefits and complications were discussed including but not limited to risks of bleeding, injury to the kidney with hematoma or anupama-hematoma, failure to fragments stone, potential for ureteric obstruction from stone passage and need for secondary p rocedures. There is a small long-term risk of hypertension and a question mayra of diabetes. Success rate of fragmentation and passage is approximately 70- 75%. This is compared to the risks and benefits for ureteroscopy which has a higher success rate but is a more invasive procedure. The success rate of the procedure was discussed. Success of the procedure in the short-term does not necessarily guarantee that long-term success will be maintained. Suitable follow up will need to be maintained. The patient showed understanding of the discussion as well as the typical recovery time, and the outpatient nature of this procedure. Opportunity was given for questions. Repeat-back protocol used to confirm understanding. They wish to proceed with left ESWL - left upper pole 12 mm Patient Instructions: This note is constructed using voice recognition software. While every effort has been made to ensure accuracy foreign banknote teller trader errors may have been included. Imaging studies, laboratory and physical exam results were discussed and reviewed in detail. No major barriers to patient understanding were identified. An opportunity to ask questions regarding the treatment plan was provided. All questions were answered. The patient expressed understanding and agreement with the above treatment plan. The patient is aware they should contact our office by phone for worsening of their current condition or the appearance of new urologic symptoms. Compliance is encouraged with any medications and followup testing that is ordered. It is a privilege to participate in the urologic care of your patient. If you have any questions or concerns regarding treatment for the above conditions, or other urologic issues, please do not hesitate to contact me. The office telephone contact is [phone]. Sincerely, Dr Josemanuel Sung MD, [facility] - Urology Compassionate Specialist Care for the Genitourinary System Coding Level of Care Code Tele Est Pt Level 4 (55875) Complex EM visit Add On G2211 Diagnoses Nephrolithiasis N20.0
--- OUTSIDE RECORDS SUMMARY | 2024-06-15 12:46 | XMS_ITS | Encounter Summary ---
Author Organization [employer] [facility] Address [address] [place] [address] 7t [place] [address] Care Team Providers Care News Intern Name Role Phone Kiana Lora Primary Care Provider [phone] Josemanuel Sung MD Unavailable [phone] Reason for Visit * Reason Comments Med Refill Encounter Details Date Type Department Care Team (Late st Contact Info) Description 08/03/2022 Refill [facility] MEDICINE [address] [place] [phone] Susan Watson FNP [address] [place] [address] Dept [place] [address] Intermittent low back pain Social History Tobacco [...] Team (Late st Contact Info) Description 06/28/2024 9:30 AM EDT Immunization [facility] [address] [place] [phone] documented as of this encounter Visit Diagnoses Diagnosis Intermittent low back pain documented in this encounter Additional Health Concerns Assessment Noted Time PHQ-9 Depression Total Score: 0 05/27/19 23 11:47 AM EDT documented as of this encounter Care Teams News Intern Relationship Specialty Start Date End Date Kiana Lora FNP [address] [place] [address] PCP - General Family Medicine 11/21/21 Josemanuel Sung MD [address] [facility] [address] [place] [phone] Urology 03/15/24 documented as of this encounter
--- OUTSIDE RECORDS SUMMARY | 2024-06-15 12:46 | XMS_ITS | Encounter Summary ---
Demographics Address [address] [place] [address] [address] [place] [address] Work Phone Mobile Phone Home Phone Preferred Language es Marital Status Baptist Affiliation Unknown Race Other Race Ethnic Group or Author Organization [email or web address] Address [address] 7t [place] [address] Care Team Providers Care Casing Cleaner Name Role Phone Anibal Lorale JEANNE Primary Care Provider [phone] Josemanuel Sung MD Unavailable [phone] Encounter Details Date Type Department Care Team (Latest Contact Info) Description 06/13/2024 Travel Social History Tobacco Use Types Packs/Day [...] Info) Description 06/28/2024 9:30 AM EDT Immunization [facility] [address] [place] [address] documented as of this encounter Visit Diagnoses Not on filedocumented in this encounter Additional Health Concerns Assessment Noted Time PHQ-9 Depression Total Score: 1 08/25/19 24 9:16 AM EDT documented as of this encounter Care Teams Casing Cleaner Relationship Specialty Start Date End Date Kiana Lora FNP [address] [place] [address] PCP - General Family Medicine 11/21/21 Josemanuel Sung MD [address] [place] [address] Urology 03/15/24 documented as of this encounter
--- OUTSIDE RECORDS SUMMARY | 2024-06-15 12:46 | XMS_ITS | Encounter Summary ---
Author Organization [facility] [facility] Address [address] [facility] 7t [place] [address] Care Team Providers Care Interstate Bus Driver Name Role Phone Kiana Lora Primary Care Provider [phone] Josemanuel Sung MD Unavailable [phone] Encounter Details Date Type Department Care Team (Latest Contact Info) Description 10/14/[address] [facility] CONVERSIONS Dental, Provider, DDS Social History [...] Info) Description 06/28/2024 9:30 AM EDT Immunization [facility] MEDICINE [address] [place] [address] documented as of this encounter Visit Diagnoses Not on filedocumented in this encounter Care Teams Interstate Bus Driver Relationship Specialty Start Date End Date Kiana Lora FNP [address] [place] [address] PCP - General Family Medicine 11/21/21 Josemanuel Sung MD [address] [place] [address] Urology 03/15/24 documented as of this encounter
--- OUTSIDE RECORDS SUMMARY | 2024-06-15 12:46 | XMS_ITS | Encounter Summary ---
Author Organization [employer] Address [address] [facility] 7t [place] [address] Care Team Providers Care Diabetic Educator Name Role Phone Kiana Lora Primary Care Provider [phone] Josemanuel Sung MD Unavailable [phone] Encounter Details Date Type Department Care Team (Late st Contact Info) Description 04/20/[address] [facility] PEDS [address] [place] [address] Sunshine Hernandez LPN Social History Tobacco Use [...] Info) Description 06/28/2024 9:[address] [facility] [address] [place] [address] documented as of this encounter Visit Diagnoses Not on filedocumented in this encounter Care Teams Diabetic Educator Relationship Specialty Start Date End Date Kiana Lora FNP [address] [place] [address] PCP - General Family Medicine 11/21/21 Josemanuel Sung MD [address] [place] [address] Urology 03/15/24 documented as of this encounter
--- OUTSIDE RECORDS SUMMARY | 2024-06-15 12:46 | XMS_ITS | Encounter Summary ---
Author Organization [employer] [facility] Address [address] [facility] 7t [place] [address] Care Team Providers Care Audio Visual Tech Name Role Phone Kiana Lora Primary Care Provider [phone] Josemanuel Sung MD Unavailable [phone] Encounter Details Date Type Department Care Team (Latest Contact Info) Description 01/22/2021 Abstract [facility] CONVERSIONS Dental, Provider, DDS Social History [...] Info) Description 06/28/2024 9:30 AM EDT Immunization [facility] MEDICINE [address] [place] [address] documented as of this encounter Visit Diagnoses Not on filedocumented in this encounter Care Teams Audio Visual Tech Relationship Specialty Start Date End Date Kiana Lora FNP [address] [place] [address] PCP - General Family Medicine 11/21/21 Josemanuel Sung MD [address] [place] [address] Urology 03/15/24 documented as of this encounter
--- OUTSIDE RECORDS SUMMARY | 2024-06-15 12:46 | XMS_ITS | Encounter Summary ---
Author Organization [facility] Address [address] [facility] 7t [place] [address] Care Team Providers Care Nurse Administrator Name Role Phone Anibal Lorale JEANNE Primary Care Provider [phone] Josemanuel Sung MD Unavailable [phone] Reason for Visit * Reason Comments Med Refill Encounter Details Date Type Department Care Team ([facility] st Contact Info) Description 03/26/[address] [facility] ADULT DENTAL [address] [place], [place] [phone] Shahid Murrieta DDS [address] [place], [place] [phone] Social History Tobacco Use Types Packs/Day Years [...] 9:30 AM EDT Immunization [facility] MEDICINE [address] [place] [address] documented as of this encounter Visit Diagnoses Not on filedocumented in this encounter Additional Health Concerns Assessment Noted Time PHQ-9 Depression Total Score: 0 05/27/19 23 11:47 AM EDT documented as of this encounter Care Teams Nurse Administrator Relationship Specialty Start Date End Date Kiana Lora FNP [address] [place] [address] PCP - General Family Medicine 11/21/21 Josemanuel Sung MD [address] [place] [address] Urology 03/15/24 documented as of this encounter
--- OUTSIDE RECORDS SUMMARY | 2024-06-15 12:46 | XMS_ITS | Encounter Summary ---
Author Organization [email or web address] Address [address] 7[address] [place] [address] Care Team Providers Care Pail Bailer Name Role Phone Kiana Lora Primary Care Provider [phone] Josemanuel Sung MD Unavailable [phone] Encounter Details Date Type Department Care Team (Late st Contact Info) Description 01/01/2023 Abstract [facility] MEDICINE [address] [place], [place] [phone] Maureen Auguste Social History Tobacco Use Types [...] t he electric, gas, oil or water [employer] threatened to shut off services in your [...] Info) Description 06/28/2024 9:30 AM EDT Immunization [facility] [address] [place] [address] documented as of this encounter Procedures Procedure [...] documented as of this encounter Care Teams Pail Bailer Relationship Specialty Start Date End Date Kiana Lora FNP [address] [place] [address] PCP - General Family Medicine 11/21/21 Josemanuel Sung MD [address] [place] [address] Urology 03/15/24 documented as of this encounter
--- OUTSIDE RECORDS SUMMARY | 2024-06-15 12:46 | XMS_ITS | Clinical Summary ---
Demographics Address [address] [place] [address] [address] [place] [address] Work Phone Mobile Phone Home Phone Preferred Language es Marital Status Christianity Affiliation Unknown Race Other Race Ethnic Group or Author Organization [employer] Address [address] [facility] 7t [place] [address] Care Team Providers Care Safety Intern Name Role Phone Kiana Lora Primary Care Provider [phone] Josemanuel Sung MD Unavailable [phone] Allergies No known active allergies Medications atorvastatin (Lipitor) 20 MG tablet Take 20 mg by mouth at bedtime. 3 Active buPROPion XL (Wellbutrin XL) 150 MG 24 hr tablet TAKE 1 TABLET BY MOUTH EVERY MORNING FOR DEPRESSION 2 Active finasteride (Proscar) 5 MG tablet Take 5 mg by mouth in the morning. 3 Active tamsulosin (Flomax) 0.4 MG 24 hr capsule Take 0.4 mg by mouth at bedtime. 3 Active diclofenac (Voltaren) 50 MG EC tabletIndication s:Intermittent low back pain TAKE 1 TABLET BY MOUTH TWICE DAILY WITH FOOD NEEDED FOR PAIN 60 tablet 2 4 Active cetirizine (ZyrTEC) 10 MG tabletIndication s:Acute effusion of right ear Take 1 tablet (10 mg) by mouth Once per day. 90 tablet 5 03/15/19 26 Active fluticasone (Flonase) 50 MCG/ACT nasal sprayIndications :Acute effusion of right ear Administer 1-2 sprays into each nostril Once per day. Shake gently. Before first use, prime pump. After use, clean tip and replace cap. 16 g 2 5 03/15/19 26 Active lidocaine-priloc clement (Emla) 2.5-2.5 % creamIndications :Anterolisthesis of lumbosacral spine APPLY TO THE AFFECTED AREA(S) THREE TIMES DAILY NEEDED FOR PAIN IN LOWER BACK 30 g 2 5 Active acetaminophen (Tylenol 8 Hour) 650 MG ER tabletIndication s:Anterolisthesi s of lumbosacral spine TAKE 1 TABLET BY MOUTH EVERY 8 HOURS NEEDED FOR PAIN. DO NOT BREAK, CRUSH, DISSOLVE OR CHEW 100 tablet 5 5 Active D3 Super Strength 50 MCG (2000 UT) capsule TAKE 1 CAPSULE BY MOUTH EVERY DAY IN THE MORNING 90 capsule 1 5 Active Active Problems Problem Noted Date Diagnosed Date Anterolisthesis of lumbosacral spine 03/15/2024 Overview (03/15/2024): Lumbar x-ray completed August 2023: 1. Grade 2 anterolisthesis of L5 on S1 with bilateral pars defects at L5-S1. 2. Ukpu-gz-gkasowyn multilevel degenerative disc disease in the lumbar spine. 3. Spwe-wv-pizgijes right convex scoliosis Assessment & Plan (03/15/2024 6:03 PM EST): No red flag symptoms Reports well-controlled at this time with topical analgesics and APAP as needed Follow-up if interested in referral to physical therapy or physiatry Encouraged to continue with pharm and non-pharm tx modalities Severe dental caries 03/03/2024 Periodontal disease 02/03/2023 Healthcare maintenance 12/30/2022 Overview (08/26/2023): Last PE: 08/25/23 PSA: following with [facility] - Dr. Sung Colonoscopy: Last completed April 2015, due for repeat April 2025 Dental: [facility] Dental Assessment & Plan (12/30/2022 2:45 PM EST): -Labs and STI WNL August 2022 Benign prostatic hyperplasia 05/27/2021 Overview (08/25/2023): -History of lower urinary tract symptoms and gross hematuria -Followed by Dr. Sung - [facility] -Continue with tamsulosin 0.4mg daily -Continue [...] Encounters Date Type Department Care Team Description 06/13/2024 Travel 05/31/2024 Orders Only [facility] External Provider, [facility] 05/10/2024 Refill [facility] & PEDS [address] [place], [place] [phone] Kiana Lora FNP 05/09/2024 2:00 PM EDT Office Visit [facility] OPTOMETRY [address] [place], [place] [phone] Kunal, Andreia, OD Open angle with borderline findings, low risk (Primary Dx); Nuclear senile cataract of both eyes; White without pressure of peripheral retina of right eye; Presbyopia 05/09/2024 Travel 03/27/2024 Telephone [facility] MEDICINE [address] [place], [place] [phone] Kanika Gallagher RN Results from Last 3 Months Immunizations Name Administration [...] Info) Description 06/28/2024 9:30 AM EDT Immunization [facility] MEDICINE [address] [place] [phone] Health Maintenance Due Date Last Done Comments [...] 08/24/2024 08/25/2023 Depression Screening 08/24/2024 08/25/2023, 08/25/19 SDOH Screening 08/24/2024 08/25/2023 Colonoscopy 04/15/2025 04/16/2015 [...] Procedure Name Priority Date/Time Associated Diagnosis Comments US RENAL BI Routine 05/31/2024 10:05 PM EDT OCT, OPTIC NERVE - OU - BOTH EYES Routine 05/09/2024 4:27 PM EDT Open angle with borderline findings, low risk CBC WITH AUTO DIFFERENTIAL Routine 03/21/2024 8:07 AM EST Low hemoglobin LIPID PANEL, STANDARD Routine 10/14/2023 8:15 AM [...] Recently Relevant to Health Maintenance Results * US RENAL BI (05/31/2024 10:05 PM EDT) Anatomical Region Laterality Modality Abdomen Ultrasound 05/31/2024 10:0 5 PM EDT Narrative 05/31/2024 10:07 PM EDT ? [facility] ?[address] ?[place] [address] ? Ultrasound Report ? Signed ? Patient: Colon,Puma ?MR#: [id number] ?? 89 ? : 1960 ?Acct:[id number] ? Age/Sex: 63 / M ?ADM Date: 04/16/25 ? Loc: HO.US ? Attending Dr: Josemanuel Sung MD ? Ordering Physician: Josemanuel Sung MD ?? Date of Service: 05/31/24 ?? Procedure(s): US renal BI ?? Accession Number(s): [id number] ? cc: Josemanuel Sung MD; Dequan Whittington MD ? CLINICAL HISTORY: N20.0 - Calculus of kidney ? US renal ? Comparison: None ? Findings: ? Right kidney 10.8 cm length. ?? 4 mm and 3 mm lower pole stones. ?? Isolated lower pole calyceal dilation. ?? 1 cm lower pole cyst. ? Left kidney 10.9 cm length. ?? 12 mm upper, 5 mm mid and 5 mm lower pole nonobstructing stones. ?? No other significant abnormality. ? No bilateral hydronephrosis. ?? Normal bilateral renal echogenicity. ? Impression: ? Bilateral renal stones as above ? Right lower pole calyceal dilation noted ? This document has been electronically signed by: Amish Martell MD on ?? 05/31/2024 22:05:55 ? Dictated By: ?Amish Martell MD ? Signed By: ?<Electronically signed by Amish Martell MD in OV> ? 05/31/246 ? DD/ 04 ? TD/TT: 05/31/242204 ? Armature Rewinder: ? Procedure Note Donchicholaurahennyter, Image - 05/31/2024 [place] [address] Ultrasound Report Signed Patient: Matthew Zuniga#: [id number] : 9Acct:[id number] Age/Sex: 63 / MADM Date: 05/31/24 Loc: HO.US Attending Dr: Josemanuel Sung MD Ordering Physician: Josemanuel Sung MD Date of Service: 05/31/24 Procedure(s): US renal BI Accession Number(s): [id number] cc: Josemanuel Sung MD; Dequan Whittington MD CLINICAL HISTORY: N20.0 - Calculus of kidney US renal Comparison: None Findings: Right kidney 10.8 cm length. 4 mm and 3 mm lower pole stones. Isolated lower pole calyceal dilation. 1 cm lower pole cyst. Left kidney 10.9 cm length. 12 mm upper, 5 mm mid and 5 mm lower pole nonobstructing stones. No other significant abnormality. No bilateral hydronephrosis. Normal bilateral renal echogenicity. Impression: Bilateral renal stones as above Right lower pole calyceal dilation noted This document has been electronically signed by: Amish Martell MD on 05/31/2024 22:05:55 Dictated By: Amish Martell MD Signed By: <Electronically signed by Amish Martell MD in OV> 05/31/242205 DD/ 04 TD/TT: 05/31/242204 Armature Rewinder: [facility] External Provider IMG US PROCEDURES Final Result * OCT, Optic Nerve - OU - [...] time. Will monitor here in 1 year. Result [facility] Andreia Syed OD OPHTH TOMOGRAPHY Final Result * (ABNORMAL) CBC auto differential (03/21/2024 8:07 AM EST) White Blood Count 5.0 4.8 - 10.8 X10*3/uL [facility] Red Blood Count 4.43(L) 4.60 - 5.80 X10*6/uL [facility] Hemoglobin 12.7(L) 14.0 - 18.0 g/dl [facility] Hematocrit 39.7(L) 42.0 - 52.0 % [facility] Mean Corpuscular Volume 89.6 80.0 - 98.0 fL [facility] Mean Corpuscular Hemoglobin 28.7 27.0 - 33.0 pg [facility] Mean Corpuscular HGB Conc 32.0 31.0 - 36.0 g/dl [facility] Red Cell Distribution Width 13.2 11.0 - 16.0 % [facility] Platelet Count 222 160 - 400 X10*3/uL [facility] Mean Platelet Volume 10.1 9.4 - 12.4 fL [facility] Neutrophils Percent Auto 46.5 45 - 73 % [facility] Imm Gran Pct Auto 1.0(H) 0.0 - 0.4 % [facility] Lymphocytes Percent Auto 40.5(H) 20 - 40 % [facility] Monocytes Percent Auto 7.6 2 - 11 % [facility] Eosinophils Percent Auto 3.8 0 - 4 % [facility] Basophils Percent Auto 0.6 0 - 2 % [facility] NRBC Pct Auto 0.0 0.0 - 0.2 /100WBC [facility] Neutrophils Absolute Auto 2.3 2.0 - 8.3 x10*3/uL [facility] Imm Gran Abs Auto 0.05(H) 0.00 - 0.03 X10*3/uL [facility] Lymphocytes Absolute Auto 2.0 1.2 - 4.9 X10*3/uL [facility] Monocytes Absolute Auto 0.4 0.1 - 1.2 X10*3/uL [facility] Eosinophils Absolute Auto 0.2 0.0 - 0.4 X10*3/uL [facility] Basophils Absolute Auto 0.0 0.0 - 0.2 X10*3/uL [facility] NRBC Abs Auto 0.000 0.0 - 0.012 X10*3/uL [facility] Blood Venous blood specimen / Unknown 03/21/2024 8:07 AM EST 03/21/2024 11:27 AM EST us Kiana Lora FLATBED OWNER OPERATOR LAB BLOOD ORDERABLES Final Res ult [facility] [address] [place] [address] [phone] * Lipid Panel, Standard (10/14/2023 8:15 AM EDT) Triglycerides 62 <150 mg/dL [facility] Comment:Desirable Triglyceri de: less than 150 mg/dLBorderline High Triglyceride 150-199 mg/dLHigh Triglyceride: 200-499 mg/dLVery High Triglyceride: greater than or equal to 5OO mg/dL Cholesterol 158 <200 mg/dL [facility] Comment:Desirable Cholestero l: less than 200 mg/dLBorderline High Cholesterol: 200-239 mg/dLHigh Cholesterol: greater than 239 mg/dL LDL Cholesterol Calculated 99 <100 mg/dL [facility] Comment:Desirable LDL: less than 100 mg/dLNear Optimal/Above Optimal LDL: 110- 129 mg/dLBorderline High LDL: 130-159 mg/dLHigh LDL: 160-189 mg/dLVery High LDL: greater than or equal to 190 mg/dL HDL Cholesterol 47 >40 mg/dL [facility] Comment:Desirable HDL: great er than 40 mg/dL Note: This HDL assay may give artificially low results in patients with liver disease. 10/14/2023 8:15 AM EDT 10/14/2023 11:10 AM EDT us Kiana Lora FLATBED OWNER OPERATOR LAB BLOOD ORDERABLES Final Res ult [facility] [address] [place] [address] [phone] * Hepatitis C Viral RNA, Quantitative, Real-Time PCR (09/07/2022 7:51 AM EDT) Hepatitis C Viral Load <15 NOT DETECTED NOT DETECTED IU/mL [facility] HCV Log PCR <1.18 NOT DETECTED NOT DETECTED Log IU/mL [facility] Comment:This test was perfor med using Real-Time Polymerase ChainReaction.Reportable Range: 15 IU/mL to 100,000,000 IU/mL(1.18 Log IU/mL to 8.00 Log IU/mL).The analytical performance characteristics of thisassay have been determined by [employer].The modifications have not been cleared or approved bythe FDA. This assay has been validated pursuant to theCLIA regulations and is used for clinical purposes.For more information on this test, go to:http://education.[employer]/faq/EAX04n2(This link is being provided for informational/educational purposes only.)THIS TEST WAS PERFORMED AT:[facility] [place] [id number] CAST MD Blood 09/07/2022 7:51 AM EDT 09/07/2022 7:51 AM EDT Kiana Lora FLATBED OWNER OPERATOR LAB BLOOD ORDERABLES Final Res ult [facility] [address] [place] [address] [phone] * Colonoscopy (04/16/2015) Colonoscopy Normal Normal Narrative Maureen Auguste - 04/16/2015 Repeat in 10 years Historical Provider HEALTH MAINTENANCE Final Result from Last 3 Months or Most Recently Relevant to Health Maintenance Insurance [facility] ONE CARE < 65 [place] [id number] [facility] Care Teams Safety Intern Relationship Specialty Start Date End Date Kiana Lora FNP [address] [place] [address] PCP - General Family Medicine 11/21/21 Jose[address] S[address] [place] [address] Urology 03/15/24
== END 2024-06-15 12:22 | disposition home or self-care (01) ==
LOC: HO.HUSH 11:01
PROVIDERS: PCP Internal Medicine; Visit Provider Urology
DX: N20.0 Calculus of kidney (principal)
CPT/HCPCS: 99214; G2211

== ENCOUNTER → 2024-06-15 11:01 | Outpatient (BNVA) | payer OTHER, SELFPAY | PROVIDERS: PCP Internal Medicine; Visit Provider Urology ==

== ENCOUNTER → 2024-07-05 06:28 | Outpatient (BNV) | payer OTHER, SELFPAY | PROVIDERS: PCP Internal Medicine; Visit Provider Radiology Diagnostic Radiology | DX: Z87.442 Personal history of urinary calculi (principal) | CPT/HCPCS: 74018 ==

== ENCOUNTER 2024-07-05 07:42 | Day surgery (SDC) | payer OTHER, SELFPAY ==
--- OUTSIDE RECORDS SUMMARY | 2024-06-15 16:20 | XMS_ITS | Encounter Summary ---
Author Organization [employer] [facility] Address [address] [facility] 7t [place] [address] Care Team Providers Care Training Professional Name Role Phone Kiana Lora Primary Care Provider [phone] Josemanuel Sung MD Unavailable [phone] Encounter Details Date Type Department Care Team (Latest Contact Info) Description 01/22/2021 Abstract [facility] CONVERSIONS Dental, Provider, DDS Social History [...] Info) Description 06/28/2024 9:30 AM EDT Immunization [facility] MEDICINE [address] [place] [address] documented as of this encounter Visit Diagnoses Not on filedocumented in this encounter Care Teams Training Professional Relationship Specialty Start Date End Date Kiana Lora FNP [address] [place] [address] PCP - General Family Medicine 11/21/21 Josemanuel Sung MD [address] [place] [address] Urology 03/15/24 documented as of this encounter
--- OUTSIDE RECORDS SUMMARY | 2024-06-15 16:20 | XMS_ITS | Encounter Summary ---
Author Organization [employer] Address [address] [facility] [address] [address] 7t [place] [address] Care Team Providers Care Receiver Name Role Phone Kiana Lora Primary Care Provider [phone] Josemanuel Sung MD Unavailable [phone] Encounter Details Date Type Department Care Team (Late st Contact Info) Description 01/01/2023 Abstract [facility] MEDICINE [address] [place], [place] [phone] Maureen Auguste Social History Tobacco Use Types [...] t he electric, gas, oil or water [employer] threatened to shut off services in your [...] Info) Description 06/28/2024 9:30 AM EDT Immunization [facility]IC[facility] [address] [place] [address] documented as of this encounter Procedures Procedure [...] documented as of this encounter Care Teams Receiver Relationship Specialty Start Date End Date Kiana Lora FNP [address] [place] [address] PCP - General Family Medicine 11/21/21 Josemanuel Sung MD [address] [place] [address] Urology 03/15/24 documented as of this encounter
--- OUTSIDE RECORDS SUMMARY | 2024-06-15 16:20 | XMS_ITS | Encounter Summary ---
Demographics Address [address] [place] [address] [address] [place] [address] Work Phone Mobile Phone Home Phone Preferred Language es Marital Status Anabaptism Affiliation Unknown Race Other Race Ethnic Group or Author Organization [employer] Address [address] [facility] [address] [address] 7t [place] [address] Care Team Providers Care Commodity Specialist Name Role Phone Anibal Lorale JEANNE Primary Care Provider [phone] Josemanuel Sung MD Unavailable [phone] Encounter Details Date Type Department Care [...] Info) Description 06/28/2024 9:30 AM EDT Immunization [facility] MEDICINE [address] [place] [address] documented as of this encounter Visit Diagnoses Not on filedocumented in this encounter Additional Health Concerns Assessment Noted Time PHQ-9 Depression Total Score: 1 08/25/19 24 9:16 AM EDT documented as of this encounter Care Teams Commodity Specialist Relationship Specialty Start Date End Date Kiana Lora FNP [address] [place] [address] PCP - General Family Medicine 11/21/21 Josemanuel Sung MD [address] [place] [address] Urology 03/15/24 documented as of this encounter
--- OUTSIDE RECORDS SUMMARY | 2024-06-15 16:20 | XMS_ITS | Encounter Summary ---
Author Organization [employer] [facility] Address [address] [place] [address] 7t [place] [address] Care Team Providers Care Veneer Redrier Name Role Phone Kiana Lora Primary Care Provider [phone] Josemanuel Sung MD Unavailable [phone] Reason for Visit * Reason Comments Med Refill Encounter Details Date Type Department Care Team (Late st Contact Info) Description 08/03/2022 Refill [facility] [address] [place] [address] [phone] Susan Watson FNP [address] [place] [address] Dept [place] [address] Intermittent low back pain Social History Tobacco [...] Info) Description 06/28/2024 9:30 AM EDT Immunization [facility] [address] [place] [address] [phone] documented as of this encounter Visit Diagnoses Diagnosis Intermittent low back pain documented in this encounter Additional Health Concerns Assessment Noted Time PHQ-9 Depression Total Score: 0 05/27/19 23 11:47 AM EDT documented as of this encounter Care Teams Veneer Redrier Relationship Specialty Start Date End Date Kiana Lora FNP [address] [place] [address] PCP - General Family Medicine 11/21/21 Josemanuel Sung MD [address] [place] [id number] Urology 03/15/24 documented as of this encounter
--- OUTSIDE RECORDS SUMMARY | 2024-06-15 16:20 | XMS_ITS | Clinical Summary ---
Demographics Address [address] [place] [address] [address] [place] [address] Work Phone Mobile Phone Home Phone Preferred Language es Marital Status Christian Affiliation Unknown Race Other Race Ethnic Group or Author Organization [employer] Address [address] [facility] 7t [place] [address] Care Team Providers Care Bread Icer Name Role Phone Kiana Lora Primary Care Provider [phone] Josemanuel Sung MD Unavailable [phone] Allergies No known active allergies Medications [...] with bilateral pars defects at L5-S1. 2. Vrpr-kv-mttmnemw multilevel degenerative disc disease in the lumbar spine. 3. Hmfc-oq-mqrkpguv right convex scoliosis Assessment & Plan (03/15/2024 6:03 PM EST): No red flag symptoms Reports well-controlled at this time with topical analgesics and APAP as needed Follow-up if interested in referral to physical therapy or physiatry Encouraged to continue with pharm and non-pharm tx modalities Severe dental caries 03/03/2024 Periodontal disease 02/03/2023 Healthcare maintenance 12/30/2022 Overview (08/26/2023): Last PE: 08/25/23 PSA: following with [facility] Urology - Dr. Sung Colonoscopy: Last completed April 2015, due for repeat April 2025 Dental: [facility] Dental Assessment & Plan (12/30/2022 2:45 PM EST): -Labs and STI WNL August 2022 Benign prostatic hyperplasia 05/27/2021 Overview (08/25/2023): -History of lower urinary tract symptoms and gross hematuria -Followed by Dr. Sung - [facility] Urology -Continue with tamsulosin 0.4mg daily -Continue [...] Encounters Date Type Department Care Team Description 06/15/2024 Telephone [facility] [address] [place], [place] [phone] Kiana Lora FNP Appointment Confirmation 06/13/2024 Travel 05/31/2024 Orders Only [facility] External Provider, [facility] 05/10/2024 Refill [facility] MED & PEDS [address] [place], [place] [phone] Kiana Lora FNP 05/09/2024 2:00 PM EDT Office Visit [facility] OPTOMETRY [address] [place] [address] Kunal, Andreia, OD Open angle with borderline findings, 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 [facility] ?[address] ?[place] [address] ? Ultrasound Report ? Signed ? Patient: Colon,Puma ?MR#: [id number] ?? 92 ? : 1960 ?Acct:[id number] ? Age/Sex: 63 / M ?ADM Date: 04/16/25 ? Loc: HO.US ? Attending Dr: Josemanuel Sung MD ? Ordering Physician: Josemanuel Sung MD ?? Date of Service: 05/31/24 ?? Procedure(s): US renal BI ?? Accession Number(s): [id number] ? cc: Josemanuel Sung MD; Dequan [place] [...] ? DD/ 04 ? TD/TT: 05/31/242204 ? Percher: ? Procedure Note Britt Franz - 05/31/2024 [place] [address] Ultrasound Report Signed Patient: Matthew Zuniga AMR#: [id number] : 9Acct:[id number] Age/Sex: 63 / MADM Date: 05/31/24 Loc: HO.US Attending Dr: Josemanuel Sung MD Ordering Physician: Josemanuel Sung MD Date of Service: 05/31/24 Procedure(s): US renal BI Accession Number(s): [id number] cc: Josemanuel Sung MD; Dequan Whitting[place] MD [...] in OV> 05/31/242205 DD/ 04 TD/TT: 05/31/242204 Percher: [facility] External Provider IMG US PROCEDURES Final Result [...] Blood Count 5.0 4.8 - 10.8 X10*3/uL [facility] Red Blood Count 4.43(L) 4.60 - 5.80 X10*6/uL [facility] Hemoglobin 12.7(L) 14.0 - 18.0 g/dl [facility] Hematocrit 39.7(L) 42.0 - 52.0 % [facility] Mean Corpuscular Volume 89.6 80.0 - 98.0 fL [facility] Mean Corpuscular Hemoglobin 28.7 27.0 - 33.0 pg [facility] Mean Corpuscular HGB Conc 32.0 31.0 - 36.0 g/dl [facility] Red Cell Distribution Width 13.2 11.0 - 16.0 % [facility] Platelet Count 222 160 - 400 X10*3/uL [facility] Mean Platelet Volume 10.1 9.4 - 12.4 fL [facility] Neutrophils Percent Auto 46.5 45 - 73 % [facility] Imm Gran Pct Auto 1.0(H) 0.0 - 0.4 % [facility] Lymphocytes Percent Auto 40.5(H) 20 - 40 % [facility] Monocytes Percent Auto 7.6 2 - 11 % [facility] Eosinophils Percent Auto 3.8 0 - 4 % [facility] Basophils Percent Auto 0.6 0 - 2 % [facility] NRBC Pct Auto 0.0 0.0 - 0.2 /100WBC [facility] Neutrophils Absolute Auto 2.3 2.0 - 8.3 x10*3/uL [facility] Imm Gran Abs Auto 0.05(H) 0.00 - 0.03 X10*3/uL [facility] Lymphocytes Absolute Auto 2.0 1.2 - 4.9 X10*3/uL [facility] Monocytes Absolute Auto 0.4 0.1 - 1.2 X10*3/uL [facility] Eosinophils Absolute Auto 0.2 0.0 - 0.4 X10*3/uL [facility] Basophils Absolute Auto 0.0 0.0 - 0.2 X10*3/uL [facility] NRBC Abs Auto 0.000 0.0 - 0.012 X10*3/uL [facility] Blood Venous blood specimen / Unknown 03/21/2024 8:07 AM EST 03/21/2024 11:27 AM EST us Kiana Phalen [facility] BLOOD ORDERABLES Final Res ult Performing Organization Address [facility] Co de Phone Number [facility] [address] [place] [address] [phone] * Lipid Panel, Standard (10/14/2023 8:15 AM EDT) Triglycerides 62 <150 mg/dL [facility] Comment:Desirable Triglyceri de: less than 150 mg/dLBorderline High Triglyceride 150-199 mg/dLHigh Triglyceride: 200-499 mg/dLVery High Triglyceride: greater than or equal to 5OO mg/dL Cholesterol 158 <200 mg/dL [facility] Comment:Desirable Cholestero l: less than 200 mg/dLBorderline High Cholesterol: 200-239 mg/dLHigh Cholesterol: greater than 239 mg/dL LDL Cholesterol Calculated 99 <100 mg/dL [facility] Comment:Desirable LDL: less than 100 mg/dLNear Optimal/Above Optimal LDL: 110- 129 mg/dLBorderline High LDL: 130-159 mg/dLHigh LDL: 160-189 mg/dLVery High LDL: greater than or equal to 190 mg/dL HDL Cholesterol 47 >40 mg/dL [facility] Comment:Desirable HDL: great er than 40 mg/dL Note: This HDL assay may give artificially low results in patients with liver disease. 10/14/2023 8:15 AM EDT 10/14/2023 11:10 AM EDT Kiana Lora [facility] BLOOD ORDERABLES Final Res ult Performing Organization Address [facility]/ZIP Co de Phone Number [facility] [address] [place] [address] [phone] * Hepatitis C Viral RNA, Quantitative, Real-Time PCR (09/07/2022 7:51 AM EDT) Hepatitis C Viral Load <15 NOT DETECTED NOT DETECTED IU/mL [facility] HCV Log PCR <1.18 NOT DETECTED NOT DETECTED Log IU/mL [facility] Comment:This test was perfor med using Real-Time Polymerase ChainReaction.Reportable Range: 15 IU/mL to 100,000,000 IU/mL(1.18 Log IU/mL to 8.00 Log IU/mL).The analytical performance characteristics of thisassay have been determined by [employer].The modifications have not been cleared or approved bythe FDA. This assay has been validated pursuant to theCLIA regulations and is used for clinical purposes.For more information on this test, go to:http://education.Inform Direct/faq/AXJ86o3(This link is being provided for informational/educational purposes only.)THIS TEST WAS PERFORMED AT:[employer] [place] [phone] CAST MD Blood 09/07/2022 7:51 AM EDT 09/07/2022 7:51 AM EDT Kiana Lora PATIENT PARTNER LAB BLOOD ORDERABLES Final Res ult [facility] [address] [place] [phone] * Colonoscopy (04/16/2015) Colonoscopy Normal Normal Narrative Maureen Auguste - 04/16/2015 Repeat in 10 years Historical Provider HEALTH MAINTENANCE Final Result from Last 3 Months or Most Recently Relevant to Health Maintenance Insurance [facility] CARE < 65 DENTAL - [facility] Care Teams Bread Icer Relationship Specialty Start Date End Date Kiana Lora FNP [address] [place] [address] PCP - General Family Medicine 11/21/21 Josemanuel Sung MD [address] [place] [address] Urology 03/15/24
--- OUTSIDE RECORDS SUMMARY | 2024-06-15 16:20 | XMS_ITS | Encounter Summary ---
Author Organization [employer] Address [address] [facility] 7t [place] [address] Care Team Providers Care Social Service Technician Name Role Phone Anibal Lorale JEANNE Primary Care Provider Josemanuel Sung MD Unavailable [phone] Reason for Visit * Reason Comments Med Refill Encounter Details Date Type Department Care Team ([facility] st Contact Info) Description 03/26/2023 Refill [facility] [address] [place], [place] [phone] Shahid Murrieta DDS [address] [place], [place] [phone] Social History Tobacco Use Types Packs/Day Years [...] Info) Description 06/28/2024 9:30 AM EDT Immunization [facility] [address] [place] [address] documented as of this encounter Visit Diagnoses Not on filedocumented in this encounter Additional Health Concerns Assessment Noted Time PHQ-9 Depression Total Score: 0 05/27/19 23 11:47 AM EDT documented as of this encounter Care Teams Social Service Technician Relationship Specialty Start Date End Date Kiana Lora FNP [address] [place] [address] PCP - General Family Medicine 11/21/21 Josemanuel Sung MD [address] [place] [address] Urology 03/15/24 documented as of this encounter
--- OUTSIDE RECORDS SUMMARY | 2024-06-15 16:20 | XMS_ITS | Encounter Summary ---
Author Organization [employer] Address [address] 7t [place] [address] Care Team Providers Care Winder Fixer Name Role Phone Kiana Lora Primary Care Provider [phone] Josemanuel Sung MD Unavailable [phone] Reason for Visit * Reason Onset Date Comments Appointment Confirmation 06/15/2024 Encounter Details Date Type Department Care Team ([facility] st Contact Info) Description 06/15/2024 Telephone [facility] [address] [place] [address] Kiana Lora FNP [address] [place], [place] [phone] Appointment Confirmation Social History Tobacco Use Types Packs/Day Years [...] encounter Miscellaneous Notes * Telephone Encounter - Suzi Mijares - 06/15/2024 1:31 PM EDT 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 Vaccine location change for 06/28/24 appointment documented in this encounter Plan of Treatment Upcoming Encounters Date Type Department Care Team (Late st Contact Info) Description 06/28/2024 9:30 AM EDT Immunization [facility] [address] [place] [address] documented as of this encounter Visit Diagnoses Not on filedocumented in this encounter Additional Health Concerns Assessment Noted Time PHQ-9 Depression Total Score: 1 08/25/19 24 9:16 AM EDT documented as of this encounter Care Teams Winder Fixer Relationship Specialty Start Date End Date Kiana Lora FNP [address] [place] [address] PCP - General Family Medicine 11/21/21 Josemanuel Sung MD [address] [place] [address] Urology 03/15/24 documented as of this encounter
--- OUTSIDE RECORDS SUMMARY | 2024-06-15 16:20 | XMS_ITS | Encounter Summary ---
Author Organization [employer] [facility] Address [address] [facility] 7t [place] [address] Care Team Providers Care Automotive Parts Specialist Name Role Phone Kiana oLra Primary Care Provider [phone] Josemanuel Sung MD Unavailable [phone] Encounter Details Date Type Department Care Team (Latest Contact Info) Description 10/14/2018 Abstract [facility] CONVERSIONS Dental, Provider, DDS Social History Tobacco [...] Info) Description 06/28/2024 9:30 AM EDT Immunization [facility] MEDICINE [address] [place] [address] documented as of this encounter Visit Diagnoses Not on filedocumented in this encounter Care Teams Automotive Parts Specialist Relationship Specialty Start Date End Date Kiana Lora FNP [address] [place] [address] PCP - General Family Medicine 11/21/21 Josemanuel Sung MD [address] [place] [address] Urology 03/15/24 documented as of this encounter
--- OUTSIDE RECORDS SUMMARY | 2024-06-15 16:20 | XMS_ITS | Encounter Summary ---
Author Organization [employer] Address [address] [facility] 7t [place] [address] Care Team Providers Care Medical Officer Psychiatry Name Role Phone Kiana Lora Primary Care Provider [phone] Josemanuel Sung MD Unavailable [phone] Encounter Details Date Type Department Care Team (Late st Contact Info) Description 04/20/2022 Orders Only [facility] MED [facility] PEDS [address] [place] [address] Sunshine Hernandez LPN Social History Tobacco Use [...] Info) Description 06/28/2024 9:30 AM EDT Immunization [facility] [address] [place] [address] documented as of this encounter Visit Diagnoses Not on filedocumented in this encounter Care Teams Medical Officer Psychiatry Relationship Specialty Start Date End Date Kiana Lora FNP [address] [place] [address] PCP - General Family Medicine 11/21/21 Josemanuel Sung MD [address] [place] [address] Urology 03/15/24 documented as of this encounter
[2024-07-03 12:48] VITALS: BMI 22.6
--- NOTE | 2024-07-04 09:16 | HO.ANESPROP2 ---
Documented by User: Fabiola Ochoa NP 07/04/24 09:17 HPI - Anesthesia Eval Consult details Narrative: 63yo M for Left Lithotripsy ESW PMFSH Active Problems Active Problems: All Active Problems Anemia (Acute) Nephrolithiasis (Acute) Urinary urgency (Acute) BPH w urinary obs/LUTS (Acute) Gross hematuria (Acute) Past Medical History Medical History History of kidney stones Gross hematuria Umbilical hernia Family History Family History Sister Colon cancer Uterus cancer Family/Other Colon cancer Father Heart problem Brother Heart problem Mother Heart problem Surgical History Surgical History History of surgery Social History Social History Household Members: Spouse Patient Tobacco Use Status: Former Tobacco user Tobacco use type: Cigar Substance Use Type: Marijuana Have you been hit, kicked, punched, or otherwise hurt by someone within the past year? If so, by whom?: No Are you DNR?: No Advance Directives: No Advance Directives Information Provided: Yes service: No Current occupational status: unemployed Gender identity: Male Meds Allergies Allergy/AdvReac Type Severity Reaction Status Date / Time No Known Allergies Allergy Verified 06/15/24 11:09 Home Medications ?Medication ?Instructions ?Recorded ?Confirmed ?Last Taken ?Type acetaminophen 500 mg tablet 500 - 1,000 mg PO TID PRN yes 10/17/20 11/19/21 Unknown History atorvastatin 20 mg tablet 20 mg PO DAILY 10/17/20 11/19/21 Unknown History bupropion HCl 150 mg 24 hr tablet, 150 mg PO BEDTIME 10/17/20 11/19/21 Unknown History extended release cholecalciferol (vitamin D3) 50 50 mcg PO DAILY 10/17/20 11/19/21 Unknown History mcg (2,000 unit) capsule diclofenac sodium 50 mg 50 mg PO BID 10/17/20 11/19/21 Unknown History tablet,delayed release mirtazapine 30 mg tablet 30 mg PO BEDTIME 10/17/20 11/19/21 Unknown History multivitamin-ferrous 0 tab PO 10/17/20 11/19/21 Unknown History fumarate-folic acid 18 mg-400 mcg tablet (Certavite-Antioxidant) trazodone 150 mg tablet 150 mg PO BEDTIME 10/17/20 11/19/21 Unknown History Exam Height,Weight and Vital Signs: Height 5 ft 5 in Weight 61.6 kg Assessment and Plan Assessment Anesthesia Assessment: Chart Reviewed Documented by User: Afshan Perez MD 07/05/24 08:58 [facility] Past Medical History Medical History History of kidney stones Gross hematuria Umbilical hernia Family History Family History Sister Colon cancer Uterus cancer Family/Other Colon cancer Father Heart problem Brother Heart problem Mother Heart problem Family history of problems with anesthesia: No Surgical History Surgical History History of surgery History of Problems with Anesthesia: No Social History Social History Household Members: Spouse Patient Tobacco Use Status: Former Tobacco user Tobacco use type: Cigar Substance Use Type: Marijuana Have you been hit, kicked, punched, or otherwise hurt by someone within the past year? If so, by whom?: No Are you DNR?: No Advance Directives: No Advance Directives Information Provided: Yes service: No Current occupational status: unemployed Gender identity: Male Meds Allergies Allergy/AdvReac Type Severity Reaction Status Date / Time No Known Allergies Allergy Verified 06/15/24 11:09 Home Medications ?Medication ?Instructions ?Recorded ?Confirmed ?Last Taken ?Type acetaminophen 500 mg tablet 500 - 1,000 mg PO TID PRN yes 10/17/20 11/19/21 Unknown History atorvastatin 20 mg tablet 20 mg PO DAILY 10/17/20 11/19/21 Unknown History bupropion HCl 150 mg 24 hr tablet, 150 mg PO BEDTIME 10/17/20 11/19/21 Unknown History extended release cholecalciferol (vitamin D3) 50 50 mcg PO DAILY 10/17/20 11/19/21 Unknown History mcg (2,000 unit) capsule diclofenac sodium 50 mg 50 mg PO BID 10/17/20 11/19/21 Unknown History tablet,delayed release mirtazapine 30 mg tablet 30 mg PO BEDTIME 10/17/20 11/19/21 Unknown History multivitamin-ferrous 0 tab PO 10/17/20 11/19/21 Unknown History fumarate-folic acid 18 mg-400 mcg tablet (Certavite-Antioxidant) trazodone 150 mg tablet 150 mg PO BEDTIME 10/17/20 11/19/21 Unknown History Exam Airway Mallampati Class: III TM Dist: >3cm Neck ROM: Limited Assessment and Plan Assessment Anesthesia Assessment: Anesthesia Plan Discussed Final Anesthetic Review Family History of Problems with Anesthesia: No History of Problems with Anesthesia: No NPO: Yes ASA Class: II Final Preanesthetic Review: No Changes in Pt Med Stat, Meds/Allgs Chart Reviewed, Consent Obtained/Reviewed and Anes Risks/Benef Reviewed Patient Risk: Intermediate Procedure Risk: Low Anesthetic Plan Anesthetic Plan: GA Disposition: Standard PACU
--- NOTE | ~2024-07-05 | XR_ITS ---
EXAMINATION: XR ABDOMEN 1 VIEW (KUB) HISTORY: stones COMPARISON: There are no prior studies for comparison. FINDINGS: Two supine views of the abdomen are submitted. The bowel gas pattern is unremarkable, without evidence of mechanical obstruction. No abnormal calcifications are identified. There are no abnormal soft tissue masses. There is dextroscoliosis of the spine. XR/XR KUB IMPRESSION: No suspicious calcifications are identified. Electronically signed by: Keith Barrett MD 07/05/2024 08:23 AM EDT
[2024-07-05 08:03] VITALS: BP 139/71; PULSE 78; RESP 18; TEMP 36.6; O2SAT 99; BMI 22.7
[2024-07-05] MEDS: Lactated Ringers 1,000 ML 999 ML IV (08:22)
--- NOTE | 2024-07-05 09:20 | P.HPSUR_ITS ---
Pre-Procedural Eval Section A - 24 Hr Update-Section A only Date of Service: 07/05/24 The patient is an INPATIENT: No Changes since office visit: No Cold of Flu in the past 2 weeks, No New Medical Problems, No Changes in Medication and No Patient answered all questions The patient has been examined within 24 hours of the surgical procedure. The History & Physical has been completed within 30 days and I have reviewed it.: Yes Section B - Complete if H&P > 30 days Chief Complaint: Calculus of kidney Relevant Social History: None Present Medications: see Short Stay Collaborative assessment Medical History: No relevant PMH History of Previous Operations: Relevant previous surgery/procedure and date(s) Allergies: Allergies Allergy/AdvReac Type Severity Reaction Status Date / Time No Known Allergies Allergy Verified 06/15/24 11:09 Review of Systems Sugical H&P ROS: Negative: Constitution, Cardiovascular, Respiratory, Neurological, Psychiatric, Hem-Onc, Allergic/Immunologic, Gastrointestinal, Genitourinary, Musculoskeletal, Integumentary, Endocrine and Eyes/Ears/Nose/Throat Exam Surgical H&P Exam: Normal: HEENT, Normal: Heart, Normal: Lungs, Normal: E xtremities, Normal: Abdomen, Normal: Skin and Normal: Neurological Plan Diagnosis/Plan: Unchanged I have reviewed the history and physical and performed a pertinent physical examination on my patient. No changes have occurred unless specified. Time Spent With Patient Time: Total time managing care of this patient today ____ minutes.
--- NOTE | 2024-07-05 09:48 | W.PM.OPN ---
Operative Note Operative Note Date of Service: 07/05/24 Narrative: PreOperative Diagnosis: Left Renal stones Post Operative Diagnosis: Left Renal stones Procedure: Left ESWL Surgeon: Dr Josemanuel Sung Anesthesia: mac/sedation Indications for procedure: The patient understands ESWL may be a staged procedure and subsequent intervention may be required based on imaging after ESWL. Quoted stone clearance rates for a solitary procedure are in the 70-80% range based primarily on stone location. They also understand there is a risk of bleeding to the kidney, infection, damage to adjacent organs, and stone migration following the procedure. - Imaging left 12 mm upper pole stone Procedure optimization has been performed with IV acetaminophen given in the holding area and 1 L of lactated Ringer's to be given in order to optimize the fluid-stone interface. 20 mg of IV Lasix will be given in the last 5 minutes of the procedure to optimize stone clearance. Procedure: After informed consent was verified the patient was brought to the operating room and placed in a supine position. Anesthesia was performed per protocol. Safety pause time-out was performed. Imaging was displayed in the room and laterality confirmed. ESWL was performed. The 1st 500 shocks were performed at 60 hertz. These were performed with increasing power. Once maximum power was reached the rate was increased to 180 hertz. A total of 2500 shocks were given. Targeted imaging with ultrasound/fluoroscopy showed stone smudging suggestive of disintegration. The patient tolerated the procedure well and was transferred to the recovery area upon completion. Post procedure imaging will be organized. There was no evidence for flank discoloration.
[2024-07-05 10:06] VITALS: BP 133/77; PULSE 66; RESP 14; TEMP 36.6; O2SAT 100
[2024-07-05 10:11] VITALS: BP 138/77; PULSE 62; RESP 15; O2SAT 100
[2024-07-05 10:16] VITALS: BP 134/79; PULSE 60; RESP 16; O2SAT 100
[2024-07-05 10:21] VITALS: BP 150/86; PULSE 63; RESP 16; O2SAT 100
[2024-07-05 10:36] VITALS: BP 144/83; PULSE 63; RESP 16; TEMP 36.6; O2SAT 99
== END 2024-07-05 11:19 | disposition home or self-care (01) ==
PROVIDERS: PCP Internal Medicine; Visit Provider Urology
PROC: (CPT 50590; principal; 2024-07-05 10:00)
DX: N20.0 Calculus of kidney (principal); R31.0 Gross hematuria; Z87.442 Personal history of urinary calculi; K42.9 Umbilical hernia without obstruction or gangrene; Z79.899 Other long term (current) drug therapy; Z87.891 Personal history of nicotine dependence; Z56.0 Unemployment, unspecified
CPT/HCPCS: 50590; 74018; J0131; J1100; J1938; J2003; J2405; J2704; J3010

== ENCOUNTER → 2024-07-05 07:42 | Outpatient (BNV) | payer OTHER, SELFPAY | PROVIDERS: PCP Internal Medicine; Visit Provider Urology | DX: N20.0 Calculus of kidney (principal) | CPT/HCPCS: 50590 ==

== ENCOUNTER 2024-08-09 15:31 | Outpatient (REF) | payer OTHER, SELFPAY ==
--- NOTE | ~2024-08-09 | US_ITS ---
CLINICAL HISTORY: N20.0 - Calculus of kidney US renal Comparison: None Findings: Right kidney 11.0 cm length. Left kidney 9.7 cm length. Multiple small nonobstructing renal stones. Small bilateral cysts also noted. No bilateral hydronephrosis. Normal bilateral renal echogenicity. Impression: Multiple small bilateral nonobstructing stones This document has been electronically signed by: Amish Martell MD on 08/09/2024 21:10:16
--- OUTSIDE RECORDS SUMMARY | 2024-08-09 18:21 | XMS_ITS | Encounter Summary ---
Author Organization [facility] Address [address] [place] [address] [address] [place] [address] Care Team Providers Care Infant Babysitter Name Role Phone Kiana Lora Primary Care Provider [phone] Josemanuel Sung MD Unavailable [phone] Encounter Details Date Type Department Care Team (Late st Contact Info) Description 04/20/2022 Orders Only [facility] MED & PEDS [address] [place] [address] Sunshine Hernandez LPN Social History Tobacco Use [...] Care Team (Late st Contact Info) Description 08/23/2024 10:15 AM EDT Office Visit [facility] MEDICINE [address] [place] [address] Kiana Lora FNP [address] [place] [address] documented as of this encounter Visit Diagnoses Not on filedocumented in this encounter Care Teams Infant Babysitter Relationship Specialty Start Date End Date Kiana Lora FNP [address] [place] [address] PCP - General Family Medicine 11/21/21 Josemanuel Sung MD [address] [place] [address] Urology 03/15/24 documented as of this encounter
== END 2024-08-09 15:32 | disposition home or self-care (01) ==
LOC: HO.US 15:31
PROVIDERS: PCP Internal Medicine; Visit Provider Urology
DX: N20.0 Calculus of kidney (principal)
CPT/HCPCS: 76775

== ENCOUNTER → 2024-08-09 15:33 | Outpatient (BNV) | payer OTHER, SELFPAY | PROVIDERS: PCP Internal Medicine; Visit Provider Radiology Diagnostic Radiology | DX: N20.0 Calculus of kidney (principal) | CPT/HCPCS: 76775 ==

== ENCOUNTER 2024-08-17 10:09 | Outpatient (REF) | payer OTHER, SELFPAY | END 2024-08-17 10:10 | disposition home or self-care (01) | LOC: HO.LNP 10:09 | PROVIDERS: PCP Internal Medicine; Visit Provider Urology | DX: N20.0 Calculus of kidney (principal); N40.1 Benign prostatic hyperplasia with lower urinary tract symptoms; N13.8 Other obstructive and reflux uropathy | CPT/HCPCS: 81003; 82365; 88300; 99212 ==

== ENCOUNTER 2024-08-17 10:09 | Outpatient (AMB) | payer OTHER, SELFPAY ==
--- NOTE | 2024-08-17 10:17 | A.OFFVIS_ITS ---
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 He is seen for the following urologic conditions - gross hematuria - persistent microscopic hematuria - lower urinary tract symptoms Vincentian translation provided in office by qualified medical imaging director Good effect from ESWL Would place on vitamin B6 and allopurinol 6m f/u imaging Nephrolithiasis Imaging - 06/09 renal ultrasound small stones right, 3 stones left 12 mm upper pole - 08/09 renal ultrasound shows only small fragments remaining on left side Intervention - ESWL Left 07/09 Lower urinary tract symptoms Current therapy includes Flomax and finasteride PSA 10/08 0.7 Gross hematuria Intermittent for past 6 months - since early 2020 Was waking 3 times at night but PCP gave Flomax and has responded Employment history working in [employer] Smoking history 2-3 cigarettes per day for 20 years but ceased 15 years ago - Imaging - 12/05 CT urogram no evidence of lesions, 5 mm left nephrolithiasis - Cytology - 12/05 NAD [facility] Medical History History of kidney stones Gross hematuria Umbilical hernia Surgical History History of surgery Family History Sister Colon cancer Uterus cancer Family/Other Colon cancer Father Heart problem Brother Heart problem Mother Heart problem Social History Household Members: Spouse Patient Tobacco Use Status: Former Tobacco user Tobacco use type: Cigar Substance Use Type: Marijuana service: No Current occupational status: unemployed Gender identity: Male Review of Systems Const Denies chills and Denies fever(s) Card Reports no additional complaints and Denies syncope Resp Denies cough GI Denies abdominal pain and Denies heartburn Reports as per HPI and Denies change in libido Neuro Denies syncope Psych Denies change in libido Endo Denies change in libido Physical Exam Const General: cooperative, healthy appearing, comfortable and no acute distress Orientation/consciousness: patient oriented x3 HEENT Face and sinus: Yes normal facial exam Mouth: moist mucous membranes Neck Neck: Yes normal visual inspection, Yes full ROM and Yes trachea midline Chest Chest palpation & inspection: normal inspection of the chest Resp Effort & Inspection: normal respiratory effort, able to speak in complete sentences and no respiratory distress GI Inspection: Yes normal to inspection Back/Spine/Pelvis Cervical Spine: normal cervical lordosis Thoracic/Lumbar Spine: thoracic and lumbar spine normal to inspection Skin General skin exam: no rashes or lesions noted Neuro General: patient oriented x3, gait normal, tone normal and moves all extremities Extrem General: Yes normal to inspection and Yes capillary refill normal Assessment & Plan Assessment & Plan (1) Nephrolithiasis: Code(s): N20.0 - Calculus of kidney Category: Medical (2) BPH w urinary obs/LUTS: Code(s): N40.1 - Benign prostatic hyperplasia with lower urinary tract symptoms; N13.8 - Other obstructive and reflux uropathy Category: Medical Plan Stone follow-up protocol Orders: Orders US renal BI 6 Months N20.0 - Calculus of kidney Medications: New pyridoxine (vitamin B6) 50 mg PO DAILY 90 tabs 1RF 90 days N20.0 - Calculus of kidney allopurinol 100 mg PO DAILY 90 tabs 1RF 90 days N20.0 - Calculus of kidney Patient Instructions: This note is constructed using voice recognition software. While every effort has been made to ensure accuracy maintenance mechanic elevators errors may have been included. Imaging studies, laboratory and physical exam results were discussed and reviewed in detail. No major barriers to patient understanding were identified. An opportunity to ask questions regarding the treatment plan was provided. All questions were answered. The patient expressed understanding and agreement with the above treatment plan. The patient is aware they should contact our office by phone for worsening of their current condition or the appearance of new urologic symptoms. Compliance is encouraged with any medications and followup testing that is ordered. It is a privilege to participate in the urologic care of your patient. If you have any questions or concerns regarding treatment for the above conditions, or other urologic issues, please do not hesitate to contact me. The office telephone contact is [phone]. Sincerely, Dr Josemanuel Sung MD, [facility] - Urology Compassionate Specialist Care for the Genitourinary System Coding Level of Care Code Est Pt Level 4 (04914) Complex EM visit Add On G2211 Diagnoses Nephrolithiasis N20.0 BPH w urinary obs/LUTS N40.1; N13.8
--- OUTSIDE RECORDS SUMMARY | 2024-08-17 10:51 | XMS_ITS | Encounter Summary ---
Author Organization [employer] [facility] Address [address] [place] [address] [address] [place] [address] Care Team Providers Care Figure Model Name Role Phone Kinaa Lora Primary Care Provider Josemanuel Sung MD Unavailable [phone] Encounter Details Date Type Department Care Team (Late st Contact Info) Description 04/20/2022 Orders Only [facility] CH[facility] MED & PEDS [address] [place] [address] Sunshine Hernandez LPN Social History Tobacco Use [...] Description 08/23/2024 10:15 AM EDT Office Visit [facility] MEDICINE [address] [place] [address] Kiana Lora FNP [address] [place] [address] documented as of this encounter Visit Diagnoses Not on filedocumented in this encounter Care Teams Figure Model Relationship Specialty Start Date End Date Kiana Lora FNP [address] [place] [address] PCP - General Family Medicine 11/21/21 Josemanuel Sung MD [address] [place] [address] Urology 03/15/24 documented as of this encounter
== END 2024-08-17 10:39 | disposition home or self-care (01) ==
LOC: HO.HUSH 10:09
PROVIDERS: PCP Internal Medicine; Visit Provider Urology
DX: N20.0 Calculus of kidney (principal); N40.1 Benign prostatic hyperplasia with lower urinary tract symptoms; N13.8 Other obstructive and reflux uropathy; Z13.9 Encounter for screening, unspecified
CPT/HCPCS: 99024

== ENCOUNTER 2024-08-24 08:06 | Outpatient (REF) | payer OTHER, SELFPAY ==
[2024-08-24 12:12] LABS: Hemoglobin A1C 115.5500 umol/L; Total Hemoglobin (HGBA1C) 3476.6059 umol/L
[2024-08-24 13:00] LABS: Alanine Aminotransferase 20 U/L (0-40); Albumin Level 4.4 g/dL (3.5-5.0); Alkaline Phosphatase 65 U/L (39-117); Anion Gap 8 (12-20); Aspartate Amino Transferase 23 U/L (5-37); Blood Urea Nitrogen 8 mg/dL (9-16); Calcium 8.9 mg/dL (8.4-10.2); Carbon Dioxide 26 mmol/L (22-29); Chloride 111 mmol/L (96-108); Cholesterol 150 mg/dL (<200); Estimated Glomerular Filt Rate > 60; HDL Cholesterol 49 mg/dL (>40); Potassium 4.1 mmol/L (3.3-5.1); Sodium 141 mmol/L (135-145); Total Protein 6.8 g/dL (6.5-8.0); Triglycerides 65 mg/dL (<150)
== END 2024-08-24 08:07 | disposition home or self-care (01) ==
LOC: HO.HHCL 08:06
PROVIDERS: PCP Registered Nurse; Visit Provider Registered Nurse
DX: Z00.00 Encounter for general adult medical examination without abnormal findings (principal); Z13.1 Encounter for screening for diabetes mellitus
CPT/HCPCS: 36415; 80053; 80061; 83036; 84443

== ENCOUNTER 2024-12-18 13:30 | Outpatient (AMB) | payer OTHER, SELFPAY ==
[2024-12-18 13:43] VITALS: BP 122/62; PULSE 73; BMI 19.6
--- NOTE | 2024-12-18 13:43 | A.OFFVIS_ITS ---
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 pain Shot Dropper Required: Yes Shot Dropper Name: STEPHON [id number] Allergies No Known Allergies Allergy (Verified 08/17/24 10:18) Medication List - Last Reconciled 12/18/24 by Alberto Vásquez MD allopurinol 100 mg PO DAILY 90 days atorvastatin 20 mg PO DAILY bupropion HCl XL 150 mg PO BEDTIME cholecalciferol (vitamin D3) 50 mcg PO DAILY cyanocobalamin (vitamin B-12) (Vitamin B-12) 1,000 mcg PO DAILY diclofenac sodium 50 mg PO BID ferrous sulfate 325 mg PO DAILY finasteride 5 mg PO DAILY 90 days mirtazapine 30 mg PO BEDTIME ovhvengsjdrz-oppo-yqfji acid 18-400 mg-mcg (Certavite-Antioxidant) 0 tabs PO naproxen 500 mg PO BID PRN 7 days oxycodone 5 mg PO Q8H PRN 3 days pyridoxine (vitamin B6) 50 mg PO DAILY 90 days tamsulosin 0.4 mg PO BEDTIME 14 days HPI Comments Details: This is a cardiology consultation regarding chest pain. Patient does not have any known cardiac issues including coronary disease or myocardial infarction or cardiomyopathy. 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 He was apparently getting it somewhat randomly with and without exertion. However, it is currently resolved he does not have those symptoms anymore. He has been referred for further evaluation for cardiac causes of his symptoms. [facility] Medical History History of kidney stones Gross hematuria Umbilical hernia Surgical History History of surgery Family History Sister Colon cancer Uterus cancer Family/Other Colon cancer Father Heart problem Brother Heart problem Mother Heart problem Social History (Updated 12/18/24 @ 13:54 by Abida Delong) Household Members: Spouse Alcohol intake: never Patient Tobacco Use Status: Former Tobacco user Tobacco use type: Cigar Substance Use Type: Marijuana service: No Current occupational status: unemployed Gender identity: Male Review of Systems Const Denies weakness ENT Reports dizziness Card Reports chest pain, Reports chest pain at rest, Reports chest pain with activity, Denies syncope, Denies rapid heart rate, Denies pedal edema, Denies edema, Denies leg edema, Denies lightheadedness, Reports palpitations, Denies dyspnea, Denies dyspnea on exertion and Denies orthopnea Resp Denies cough, Denies dyspnea and Denies dyspnea on exertion GI Denies hematochezia and Denies change in stool character Musc Denies abnormal gait, Denies muscle cramps, Denies muscle weakness, Denies numbness, Denies radiating pain into limb and Denies tingling Neuro Denies abnormal gait, Reports dizziness, Denies syncope, Denies numbness, Denies tingling and Denies weakness Endo Reports palpitations Physical Exam Vital Signs: Last Vital Signs Pulse 73 12/18/24 13:43 BP 122/62 12/18/24 13:43 BMI result Body Mass Index 19.6 Const General: comfortable and no acute distress Orientation/consciousness: patient oriented x3 HEENT Other: Unremarkable Head: Yes normal to inspection Neck Neck: Yes normal visual inspection Chest Chest palpation & inspection: normal inspection of the chest Resp Auscultation: clear to auscultation bilaterally Cardio Palpation: normal PMI Heart sounds: S1 normal heart sound present, S2 normal heart sound present, no gallops, no murmurs and no rubs GI Palpation (GI): Soft to palpation Back/Spine/Pelvis Other: unremarkable Skin General skin exam: no rashes or lesions noted Neuro General: patient oriented x3 Extrem General: Yes normal to inspection Psych Mental Status: mental status grossly normal Office Procedures EKG Details: EKG with underlying sinus rhythm at 73/Min; inferior [place]-depression; [place] [id number]-[id number], Complete Assessment & Plan Assessment & Plan (1) Chest pain: Code(s): R07.9 - Chest pain, unspecified Category: Medical Plan Chest pain symptoms, but currently resolved per patient. He does have an abnormal EKG with inferior ST depression. We will obtain a further workup with an echocardiogram and stress perfusion imaging study. Based on the above findings, we will plan further care. Discussion Notes I discussed with the patient the plan to perform a heart ultrasound and a stress test to evaluate his cardiac function and response to exercise. These tests are intended to identify any potential cardiac issues that may have caused his chest pain. Patient was informed and verbally consented to the use of an ambient scribe for clinic note documentation during this visit. Orders: Orders CA stress test Today R07.2 - Precordial pain CA echo transthoracic complete Today R07.9 - Chest pain, unspecified NM cardiolite stress test Today R07.9 - Chest pain, unspecified Patient Instructions: - Follow up with the results of the heart ultrasound and stress test. - Report any recurrence of chest pain or new symptoms immediately. Coding Level of Care Code New Pt Level 4 (62775) Complex EM visit Add On G2211 Diagnoses Chest pain R07.9 CPT Codes EKG - CPT: 34524-[id number], Complete ([id number])
== END 2024-12-18 14:07 | disposition home or self-care (01) ==
PROVIDERS: PCP Registered Nurse; Visit Provider Internal Medicine
DX: R07.9 Chest pain, unspecified (principal)
CPT/HCPCS: 93010; 99204; G2211

== ENCOUNTER → 2024-12-18 13:30 | Outpatient (BNVA) | payer OTHER, SELFPAY | PROVIDERS: PCP Registered Nurse; Visit Provider Internal Medicine | DX: R07.9 Chest pain, unspecified (principal) | CPT/HCPCS: 93005; 99202 ==

== ENCOUNTER 2025-01-22 10:44 | Outpatient (AMB) | payer OTHER, SELFPAY ==
--- NOTE | 2025-01-22 10:51 | MHC.OFFVIS ---
Vital Signs 01/22/25 10:59 Height 5 ft 6 in Weight 129 lb 4 oz BMI 20.9 BP 137/69 Blood Pressure Location Rt brachial Position Sitting Pulse 71 Intake Visit Reasons: Hernia Intake Note: This patient presents for an assessment for hernia. Pt c/o; Hx: Umbilical hernia repair- 04/23/15 Dr. Briceño Nutritional Services Cook Required: Yes Nutritional Services Cook Language: Combination Machine Tender Services: Nutritional Services Cook Present Nutritional Services Cook Name: Mike Information Interpreted: non-clinical & clinical Accompanied by: Family/Other Allergies No Known Allergies Allergy (Verified 01/22/25 11:00) HPI HPI Hernia: Details: 64-year-old male referred for a left inguinal hernia hernia. He has noticed this mass on his left groin for about 4 months now. He says that this has been causing him pain and discomfort. He wants this repaired He denies any GI complaints. He denies any serious health issues. [facility] Medical History (Updated 01/22/25 @ 11:21 by Handy Briceño MD) Left inguinal hernia History of kidney stones Gross hematuria Umbilical hernia Surgical History History of surgery Family History Sister Colon cancer Uterus cancer Family/Other Colon cancer Father Heart problem Brother Heart problem Mother Heart problem Social History Household Members: Spouse Alcohol intake: never Patient Tobacco Use Status: Former Tobacco user Tobacco use type: Cigar Substance Use Type: Marijuana service: No Current occupational status: unemployed Gender identity: Male Review of Systems Const Denies chills and Denies fever(s) Card Denies chest pain, Denies dyspnea and Denies dyspnea on exertion Resp Denies cough, Denies dyspnea and Denies dyspnea on exertion GI Denies hematochezia and Denies change in bowel habits Denies hematuria and Denies difficulty urinating Musc Denies back pain and Denies limited range of motion Neuro Denies focal weakness and Denies convulsions Psych Denies depression and Denies mood swings Physical Exam Vital Signs: Last Vital Signs Pulse 71 01/22/25 10:59 BP 137/69 01/22/25 10:59 BMI result Body Mass Index 20.9 Const General: comfortable and no acute distress Orientation/consciousness: patient oriented x3 Neck Neck: Yes no lymphadenopathy Resp Auscultation: clear to auscultation bilaterally Cardio Rhythm: regular rhythm GI Other: Left inguinal hernia, partially reducible, tender Palpation (GI): Soft to palpation, nontender and no guarding Neuro General: patient oriented x3 Assessment & Plan Assessment & Plan (1) Left inguinal hernia: Code(s): K40.90 - Unilateral inguinal hernia, without obstruction or gangrene, not specified as recurrent Category: Medical Plan: He has this partially reducible left inguinal hernia. He has been having pain and discomfort with this for about 4 months. He wants to proceed with repair. I explained the technique of repair with mesh placement. I reviewed the risks including but not limited to bleeding, infections, injury to bowel, injury to the vas deferens, recurrence, postop pain, as well as the benefits and alternatives. I explained to him what to expect postoperatively. He says he understands and wants to proceed. His was with him during the visit. Orders: Referrals General Surgery Procedure Notification K40.90 - Unilateral inguinal hernia, without obstruction or gangrene, not specified as recurrent Coding Level of Care Code New Pt Level 3 (86358) Diagnoses Left inguinal hernia K40.90
[2025-01-22 10:59] VITALS: BP 137/69; PULSE 71; BMI 20.9
--- OUTSIDE RECORDS SUMMARY | 2025-01-22 18:05 | XMS_ITS | Encounter Summary ---
Author Organization [email or web address] Address [address] [place] [address] Care Team Providers Care Heading Maker Name Role Phone Kiana Lora Primary Care Provider [phone] Josemanuel Sung MD Unavailable [phone] Encounter Details Date Type Department Care Team (Late st Contact Info) Description 04/20/2022 Orders Only [facility] CHC MED & PEDS [address] [place] [address] Sunshine Hernandez LPN Social History Tobacco Use Types Packs/Day Years Used Date Smoking Tobacco: Never Assessed Sex and Gender Information Value Date Recorded Sex Assigned at Male 12/15/2021 10:17 AM EDT Legal Sex Male 10:17 AM EDT Gender Identity Male 05/26/2022 1:01 PM EDT Sexual Orientation Choose not to disclose 2021 10:17 AM EDT documented as of this encounter Plan of Treatment Not on file documented as of this encounter Visit Diagnoses Not on filedocumented in this encounter Care Teams Heading Maker Relationship Specialty Start Date End Date Kiana Lora FNP [address] [place] [address] PCP - General Family Medicine 11/21/21 Josemanuel Sung MD [address] [place] [address] Urology 03/15/24 documented as of this encounter
--- OUTSIDE RECORDS SUMMARY | 2025-01-22 18:06 | XMS_ITS | Encounter Summary ---
Author Organization [employer] [facility] Address [address]t [place] [address] Care Team Providers Care Directory Operator Name Role Phone Kiana Lora Primary Care Provider [phone] Josemanuel Sung MD Unavailable [phone] Encounter Details Date Type Department Care Team (Latest Contact Info) Description 10/14/2018 Abstract [facility] CONVERSIONS Dental, Provider, DDS Social History [...] on filedocumented in this encounter Care Teams Directory Operator Relationship Specialty Start Date End Date Kiana Lora FNP [address] [place] [address] PCP - General Family Medicine 11/21/21 Josemanuel Sung MD [address] [place] [address] Urology 03/15/24 documented as of this encounter
--- OUTSIDE RECORDS SUMMARY | 2025-01-22 18:06 | XMS_ITS | Encounter Summary ---
Author Organization [employer] [facility] Address [address] [place] [address] 7[address] [place] [address] Care Team Providers Care Privacy Manager Name Role Phone Kiana Lora Primary Care Provider [phone] Josemanuel Sung MD Unavailable [phone] Encounter Details Date Type Department Care Team (Latest Contact Info) Description 01/22/2021 Abstract [facility] CONVERSIONS Dental, Provider, DDS Social History Tobacco [...] on filedocumented in this encounter Care Teams Privacy Manager Relationship Specialty Start Date End Date Kiana Lora FNP [address] [place] [address] PCP - General Family Medicine 11/21/21 Josemanuel Sung MD [address] [place] [address] Urology 03/15/24 documented as of this encounter
--- OUTSIDE RECORDS SUMMARY | 2025-01-22 18:07 | XMS_ITS | Encounter Summary ---
Author Organization [employer] [facility] Address [address] [place] [address] [address] [place] [address] Care Team Providers Care Grain Unloader Name Role Phone Kiana Lora Primary Care Provider [phone] Josemanuel Sung MD Unavailable [phone] Reason for Visit * Reason Comments Med Refill Encounter Details Date Type Department Care Team (Late st Contact Info) Description 08/03/2022 Refill [facility] MEDICINE [address] [place] [address] Susan Watson FNP Intermittent low back pain Social History Tobacco [...] documented as of this encounter Care Teams Grain Unloader Relationship Specialty Start Date End Date Kiana Lora FNP [address] [place] [address] PCP - General Family Medicine 11/21/21 Josemanuel Sung MD [address] [place] [address] Drive [address] [place] [address] Urology 03/15/24 documented as of this encounter
--- OUTSIDE RECORDS SUMMARY | 2025-01-22 18:07 | XMS_ITS | Clinical Summary ---
Demographics Address [address] [place] [address] [address] [place] [address] Work Phone Mobile Phone Home Phone Preferred Language es Marital Status Gnosticist Affiliation Unknown Race Other Race Ethnic Group Unknown Author Organization [employer] Address [address] [facility] 7t [place] [address] Care Team Providers Care Sizing Machine Tender Name Role Phone Kiana Lora Primary Care Provider [phone] Josemanuel Sung MD Unavailable [phone] Allergies No known active allergies Medications [...] mg by mouth at bedtime. 3 Active fluticasone (Flonase) 50 MCG/ACT nasal sprayIndications :Acute effusion of right ear INSTILL 1-2 SPRAYS IN EACH NOSTRIL ONCE DAILY SHAKE GENTLY 16 g 2 5 Active diclofenac (Voltaren) 50 MG EC tabletIndication s:Intermittent low back pain TAKE 1 TABLET BY MOUTH TWICE DAILY WITH FOOD NEEDED FOR PAIN 60 tablet 2 5 Active lidocaine-priloc clement (Emla) 2.5-2.5 % creamIndications :Anterolisthesis of lumbosacral spine APPLY TO THE AFFECTED AREA(S) THREE TIMES DAILY NEEDED FOR BACK PAIN 30 g 2 5 Active acetaminophen (Tylenol 8 Hour) 650 MG ER tabletIndication s:Anterolisthesi s of lumbosacral spine TAKE 1 TABLET EVERY 8 HOURS NEEDED FOR PAIN, DO NOT BREAK, CRUSH, DISSOLVE OR CHEW 100 tablet 5 Active pyridoxine (Vitamin B-6) 50 MG tablet Take 1 tablet by mouth Once per day. Active Ferrous Sulfate (iron) 325 (65 Fe) MG tablet Take 1 tablet by mouth Once per day. Active cyanocobalamin (Vitamin B-12) 1000 MCG tablet Take 1 tablet by mouth Once per day. Active cetirizine (ZyrTEC) 10 MG tabletIndication s:Acute effusion of right ear TAKE 1 TABLET BY MOUTH ONCE DAILY 90 tablet 1 Active cholecalciferol (Vitamin D-3) 25 MCG (1000 UT) capsule Take 1 capsule (25 mcg) by mouth Once per day. 90 capsule 1 01/09/2025 1:18 PM EST 5 04/09/19 26 Active Active Problems Problem Noted Date Diagnosed Date Anemia 08/29/2024 Overview (12/13/2024): Persistent normocytic anemia Following with [facility] H[facility]ology - Dr. Charlton Consult 07/2024: serum immunofixation normal. No evidence of hemolysis or infectious process. Normal VitB12 and folate levels. Consult 11/2024: initiated VitB12 1000 mcg daily Lab Results Component Value Date HGB 12.7 (L) 03/21/2024 HCT 39.7 (L) 03/21/2024 Assessment & Plan (12/13/2024 8:22 PM EDT): - Cont with every other day iron supplementation - Cont Vit B12 supplement daily Assessment & Plan (08/29/2024 4:03 PM EDT): - Cont with every other day iron supplementation Other microscopic hematuria 08/29/2024 Overview (08/29/2024): Following with [facility] Urology - Dr. Sung Continues on Flomax and finasteride Nephrolithiasis 08/29/2024 Overview (08/29/2024): Following with [facility] Urology - Dr. Sung Renal US May 2024 demonstrated bilateral nephrolithiasis ESWL performed 06/2024 with good results Prescribed allopurinol and Vit B6 through urology Anterolisthesis of lumbosacral spine 03/15/2024 Overview (03/15/2024): Lumbar x-ray completed August 2023: 1. Grade 2 anterolisthesis of L5 on S1 with bilateral pars defects at L5-S1. 2. Ugxz-tm-afirlzsy multilevel degenerative disc disease in the lumbar spine. 3. Igbn-fy-doypunbc right convex scoliosis Assessment & Plan (03/15/2024 6:03 PM EST): No red flag symptoms Reports well-controlled at this time with topical analgesics and APAP as needed Follow-up if interested in referral to physical therapy or physiatry Encouraged to continue with pharm and non-pharm tx modalities Severe dental caries 03/03/2024 Periodontal disease 02/03/2023 Healthcare maintenance 12/30/2022 Overview (08/26/2023): Last PE: 08/25/23 PSA: following with [facility] Urology - Dr. Sung Colonoscopy: Last completed April 2015, due for repeat April 2025 Dental: [facility] Dental Assessment & Plan (12/30/2022 2:45 PM EST): -Labs and STI WNL August 2022 Benign prostatic hyperplasia 05/27/2021 Overview (08/25/2023): -History of lower urinary tract symptoms and gross hematuria -Followed by Dr. Sung - [facility] -Continue with tamsulosin 0.4mg daily -Continue with finasteride 5mg daily -Pt reports symptoms are well controlled with current management Intermittent low back pain 03/09/2017 Assessment & Plan (08/30/2022 11:03 AM EDT): No red flag symptoms Continue with topical analgesic and symptomatic management Previously referred to PT, although pt declines [...] Vitamin D deficiency 03/12/2015 Assessment & Plan (12/13/2024 8:42 PM EDT): Continues with Vit D supplementation - 2000 units daily Check Vit D level next appointment Assessment & Plan (08/26/2023 7:07 AM EDT): Continues with Vit D supplementation - 2000 units daily Check Vit D level Encounters Date Type Department Care Team Description 12/19/2024 8:40 AM EST Office Visit [facility] [address] [place] [phone] Ana Harris MD Left inguinal hernia (Primary Dx) 12/19/2024 Travel 12/14/2024 Refill [facility] [address] [place] [id number] Kiana Lora FNP Acute effusion of right ear 12/13/2024 9:45 AM EDT Office Visit [facility] [address] [place] [phone] Kiana Lora FNP Anemia, unspecified type (Primary Dx); Encounter for immunization; Encounter for vaccination; Former tobacco use; Vitamin D deficiency; Screening for osteoporosis; Other microscopic hematuria; Lower urinary tract symptoms 12/13/2024 Travel 11/15/2024 Telephone [facility] [address] [place] [address] [phone] Kiana Lora FNP Durable Medical Equipment from Last 3 Months Immunizations Immunization Administration Dates Next Due Hep A, Adult 05/13/2011,02/06/2010 Hep B, adult 05/13/2011,02/06/2010,09/16/2006 INFLUENZA INJECTABLE QUADRIV ALANT CCIIV4 MDCK Multi-dose vial 03/02/2019 Influenza Injectable Quadriv alant Preservative Free IIV4 MDCK 12/11/2019 Influenza injectable quadriv alent IIV4 with preservative 01/03/2018,12/07/2016,12/06/2015 Influenza injectable quadriv alent preservative free 12/30/2022,11/21/2021,02/04/2021 Influenza, High Dose Seasona l, Preservative Free 12/13/2024,03/15/2024 Pfizer Covid-19 Vaccine 12+ 12/13/2024, Pneumococcal Conjugate PCV 20 12/30/2022 Pneumococcal Polysaccharide PPSV23 05/13/2011 TD (adult), 2 Lf tetanus tox oid, preservative free, adsorbed 06/23/2006 Tdap 12/13/2024,06/26/2014 Zoster, Recombinant 12/11/2019,03/02/2019 Family History Medical History Relation Name Comments Colon polyps Brother Coronary artery disease Father Prostate cancer Maternal Grandfather Alzheimer's disease Mother Colon cancer Nephew 1 Lung cancer Nephew 2 Developmental delay Sister 1 Seizures Sister 1 Stroke Sister 2 Colon polyps Sister 3 Relation Name Status Comments Brother Father Maternal Grandfather Mother Nephew 1 Alive Nephew 2 Alive Sister 1 Sister 2 Sister 3 Alive Social History Tobacco Use Types Packs/Day Years [...] Answer Date Recorded Patient Health Questionnaire-9 Score 9 08/23/2024 Patient Health Questionnaire-9 Score 9 08/23/2024 Last PHQ-9: Questionnaire Data Not on file 0 08/23/2024 Housing Stability Answer Date Recorded What is your housing situation today? I have iwona pearson 12/13/[address] you li ve. Do you have problems with any of the following? None of the above 12/13/2024 Food Insecurity Answer Date Recorded Within the past 12 months, y ou worried that your food would run out before you got money to buy more: Sometimes True 2024 Within the past 12 months,th e food you bought just didn't last and you didn't have enough money to get more: Sometimes True 12/13/2024 Transportation Answer Date Recorded In the past 12 months, has l ack of transportation kept you from medical appts, meetings, work or from getting things needed for daily living? No 12/13/2024 Utilities Answer Date Recorded In the past 12 months, has t he electric, gas, oil or water company threatened to shut off services in your home? No 12/13/2024 Depression Answer Date Recorded Patient Health Questionnaire-2 Score 2 08/23/2024 Internet Access Answer Date Recorded Internet Access Q1 Yes 12/13/2024 Internet Access Q2 Not on file 12/13/2024 Sex and Gender Information Value Date Recorded Sex Assigned at Male 12/15/2021 10:17 AM EDT Legal Sex Male 10:17 AM EDT Gender Identity Male 05/26/2022 1:01 PM EDT Sexual Orientation Choose not to disclose 2021 10:17 AM EDT Last Filed Vital Signs Vital Sign Reading Time Taken Comments Blood Pressure 145/80 12/19/2024 8:45 AM EST Pulse 84 12/19/2024 8:45 AM EST Temperature 36.7 C (98 F) 12/19/2024 8:45 AM EST Respiratory Rate 18 12/19/2024 8:45 AM EST Oxygen Saturation 98% 12/13/2024 10: 17 AM EDT Inhaled Oxygen Concentration - - Weight 57.1 kg (125 lb 12.8 oz) 12/19/2024 8:45 AM EST Height 165.1 cm (5' 5 ) 12/19/2024 8:45 AM EST Body Mass Index 20.93 12/19/2024 8:45 AM EST Plan of Treatment Health Maintenance Due Date Last Done Comments CT Colonography 1958 FIT DNA/Cologuard 1958 FIT 1958 FOBT 1960 Sigmoidoscopy 1960 Dental Oral Exam 04/16/2019 10/14/2018, , 08/13/2017, Additional history exists Dental Prophylaxis 07/24/2021 01/22/2021, 0 10/14/2018, 01/28/2018, Additional history exists Dental X-Ray: Bitewings 01/23/2022 01/23/20, 10/14/2018, 07/28/2017, Additional history exists Dental X-Ray: Full Mouth 01/24/2024 01/22/2021, 06/15 Depression Monitoring 02/23/2025 08/23/2024, 025 Colonoscopy 04/15/2025 04/16/2015 Colorectal Cancer Screening 04/15/2025 COVID-19 Vaccine ( season) 2025 12/13/2024, 03/15/2024, 11/21/2021, Additional history exists Alcohol/Substance Use Screening 12/13/2025 12/13/2024 SDOH Screening 12/13/2025 12/13/2024 Tobacco Screening 12/19/2025 12/19/2024 Lipid Panel 08/24/2029 08/24/2024, 09/16, 08/26/2023, Additional history exists RSV Patients and Patients Aged 60 years or older (1 - 1-dose 75+ series) 2033 DTaP/Tdap/Td Vaccines (3 - Td or Tdap) 12/13/2034 12/13/2024, 06/26/2014, 06/23/2006 Hepatitis A Vaccines Aged Out 05/13/2011, 02/07/20 10 No longer eligible based on patient's age to complete this topic Hepatitis B Vaccines Completed 05/13/2011, 02/06/2010, 09/16/2006 Zoster Vaccines Completed 12/11/2019, 03/02/2019 Hepatitis C Screening Completed 09/07/2022 Pneumococcal Vaccine: 50+ Years Completed 12/30/2022, 05/13/2011 Influenza Vaccine Completed 12/13/2024, , 12/30/2022, Additional history exists HIB Vaccines Aged Out No longer eligi ble based on patient's age to complete this topic HPV Vaccines Aged Out No longer eligi ble based on patient's age to complete this topic IPV Vaccines Aged Out No longer eligi ble based on patient's age to complete this topic Meningococcal B Vaccine Aged Out No l onger eligible based on patient's age to complete [...] Procedure Name Priority Date/Time Associated Diagnosis Comments LIPID PANEL, STANDARD Routine 08/24/2024 8:10 AM EDT Healthcare maintenance HEPATITIS C VIRAL RNA, QUANTITATIVE, REAL-TIME PCR [...] Health Maintenance Results * Lipid Panel, Standard (08/24/2024 8:10 AM EDT) Triglycerides 65 <150 mg/dL [facility] Comment:Desirable Triglyceri de: less than 150 mg/dLBorderline High Triglyceride 150-199 mg/dLHigh Triglyceride: 200-499 mg/dLVery High Triglyceride: greater than or equal to 5OO mg/dL Cholesterol 150 <200 mg/dL [facility] Comment:Desirable Cholestero l: less than 200 mg/dLBorderline High Cholesterol: 200-239 mg/dLHigh Cholesterol: greater than 239 mg/dL LDL Cholesterol Calculated 88 <100 mg/dL [facility] Comment:Desirable LDL: less than 100 mg/dLNear Optimal/Above Optimal LDL: 110- 129 mg/dLBorderline High LDL: 130-159 mg/dLHigh LDL: 160-189 mg/dLVery High LDL: greater than or equal to 190 mg/dL HDL Cholesterol 49 >40 mg/dL [facility] Comment:Desirable HDL: great er than 40 mg/dL Note: This HDL assay may give artificially low results in patients with liver disease. Blood Venous blood specimen / Unknown 08/24/2024 8:10 AM EDT 08/24/2024 12:29 PM EDT Kiana Lora HUMAN RESOURCES RECRUITER LAB BLOOD ORDERABLES Final Res ult Performing Organization Address [facility] Co de Phone Number [facility] [address] [place] [address] [phone] * Hepatitis C Viral RNA, Quantitative, Real-Time PCR (09/07/2022 7:51 AM EDT) Hepatitis C Viral Load <15 NOT DETECTED NOT DETECTED IU/mL [facility] HCV Log PCR <1.18 NOT DETECTED NOT DETECTED Log IU/mL [facility] Comment:This test was perfor med using Real-Time Polymerase ChainReaction.Reportable Range: 15 IU/mL to 100,000,000 IU/mL(1.18 Log IU/mL to 8.00 Log IU/mL).The analytical performance characteristics of thisassay have been determined by [employer].The modifications have not been cleared or approved bythe FDA. This assay has been validated pursuant to theCLIA regulations and is used for clinical purposes.For more information on this test, go to:http://education.[employer]/faq/OVY90t8(This link is being provided for informational/educational purposes only.)THIS TEST WAS PERFORMED AT:[employer] [place] [id number] CAST MD Blood 09/07/2022 7:51 AM EDT 09/07/2022 7:51 AM EDT Kiana Lora HUMAN RESOURCES RECRUITER LAB BLOOD ORDERABLES Final Res ult Performing Organization Address [facility]/ZIP Co de Phone Number [facility] [address] [place] [address] [phone] * Hm Colonoscopy (04/16/2015) Colonoscopy Normal Normal Narrative Maureen Auguste - 04/16/2015 Repeat in 10 years Historical Provider HEALTH MAINTENANCE Final Result from Last 3 Months or Most Recently Relevant to Health Maintenance Insurance [facility] CARE Member Subscriber Plan / Payer ( fective 2024-Present) Name:Matthew Cooney Relation to Subscriber:Self Name:Matthew Cooney Payer ID:Not on file Group ID:[id number] Type:Not on file Address: [address] [employer] [facility] - [facility] * Guarantor: Efrain Andria Matthew Manley Account Type Relation to Patient Date of Phone Billing Address Personal/Family Self [address] [facility] [address] [place] [address] * Guarantor: Matthew Cooney Account Type Relation to Patient Date of Phone Billing Address Personal/Family Self [address] [facility] [address] [place] [address] Care Teams Sizing Machine Tender Relationship Specialty Start Date End Date Kiana Lora FNP [address] [place] [phone] PCP - General Family Medicine 11/21/21 Josemanuel Sung MD [address] [place] [address] Urology 03/15/24
--- OUTSIDE RECORDS SUMMARY | 2025-01-22 18:09 | XMS_ITS | Encounter Summary ---
Author Organization [employer] Address [address] 7t [place] [address] Care Team Providers Care Cutting And Creasing Press Operator Name Role Phone Kiana Lora Primary Care Provider [phone] Josemanuel Sung MD Unavailable [phone] Encounter Details Date Type Department Care Team (Late st Contact Info) Description 01/01/2023 Abstract [facility] [address] [place], [place] [phone] Maureen Auguste Social History Tobacco Use Types [...] on file documented as of this encounter Procedures Procedure Name Priority Date/Time Associated Diagnosis Comments COLONOSCOPY Routine 04/16/2015 documented in this encounter Results * Colonoscopy (04/16/2015) Colonoscopy Normal Normal Narrative Maureen uAguste - 04/16/2015 Repeat in 10 years us Historical Provider HEALTH MAINTENANCE Final Result documented in this encounter Visit Diagnoses Not on filedocumented in this encounter Additional Health Concerns Assessment Noted Time PHQ-9 Depression Total Score: 0 05/27/19 23 11:47 AM EDT documented as of this encounter Care Teams Cutting And Creasing Press Operator Relationship Specialty Start Date End Date Kiana Lora FNP [address] [place] [address] PCP - General Family Medicine 11/21/21 Josemanuel Sung MD [address] [place] [address] Urology 03/15/24 documented as of this encounter
--- OUTSIDE RECORDS SUMMARY | 2025-01-22 18:09 | XMS_ITS | Encounter Summary ---
Author Organization [employer] Address [address] [facility] 7t [place] [address] Care Team Providers Care Recovery Engineer Name Role Phone Kiana Lora Primary Care Provider [phone] Josemanuel Sung MD Unavailable [phone] Reason for Visit * Reason Comments Med Refill Encounter Details Date Type Department Care Team ([facility] st Contact Info) Description 03/26/2023 Refill [facility] [address] [place], [place] [phone] Shahid Murrieta DDS [address] [place], [place] [phone] Social History Tobacco Use Types Packs/Day Years [...] documented in this encounter Plan of Treatment Not on file documented as of this encounter Visit Diagnoses Not on filedocumented in this encounter Additional Health Concerns Assessment Noted Time PHQ-9 Depression Total Score: 0 05/27/19 23 11:47 AM EDT documented as of this encounter Care Teams Recovery Engineer Relationship Specialty Start Date End Date Kiana Lora FNP [address] [place] [phone] PCP - General Family Medicine 11/21/21 Josemanuel Sung MD [address] [place] [address] [place] [phone] Urology 03/15/24 documented as of this encounter
== END 2025-01-22 11:28 | disposition home or self-care (01) ==
PROVIDERS: PCP Registered Nurse; Visit Provider Surgery
DX: K40.90 Unilateral inguinal hernia, without obstruction or gangrene, not specified as recurrent (principal)
CPT/HCPCS: 99203

== ENCOUNTER → 2025-01-22 10:44 | Outpatient (BNVA) | payer OTHER, SELFPAY | PROVIDERS: PCP Registered Nurse; Visit Provider Surgery | DX: K40.90 Unilateral inguinal hernia, without obstruction or gangrene, not specified as recurrent (principal) | CPT/HCPCS: 99202 ==

== ENCOUNTER → 2025-01-30 07:34 | Outpatient (REF) | payer OTHER, SELFPAY ==
--- NOTE | ~2025-01-30 | NM_ITS ---
Lexiscan Myocardial perfusion study Indication: Chest pain to evaluate for myocardial ischemia Technique: The patient was brought in for a Lexiscan perfusion study on 01/30/2025 and was injected 0.4 mg of Lexiscan intravenously. Within a minute of this injection 25 mCi of sestamibi was given intravenously. Images were obtained using the SPECT gamma camera interlaced with the gating device. Images were obtained in supine position. Resting perfusion study was performed on 01/31/2025. Patient was administered 25 mCi of sestamibi intravenously at rest. Images were then obtained in supine position. Images were processed with the software and compared side to side in short axis, horizontal long axis and vertical long axis views. Images obtained without without CT attenuation. Total DLP 71 mGy-cm. Findings: Both stress and rest perfusion study was suboptimal due to intense subdiaphragmatic uptake interfering with inferior wall uptake as well as arms by the side position The stress perfusion study showed nonattenuated images show normal uptake of radiotracer in all segments of the LV myocardium. Attenuated corrected images are suboptimal. The gated study shows normal LV systolic function with calculated LVEF of 67%. LV cavity is normal in size. The gated study shows normal systolic wall thickening and contraction of segments. Resting study shows nonattenuated images show normal uptake of radiotracer in all segments of the LV myocardium. Gating at rest reveals normal systolic wall motion with ejection fraction at 62%. The findings are consistent with likely normal myocardial perfusion. NM/NM cardiolite stress test Impression: 1. Myocardial perfusion imaging study shows likely normal myocardial perfusion 2. Gated LVEF is 67% 3. Transient ischemic dilatation not present Nondiagnostic changes on EKG. Electronically signed by: Panda Ballesteros MD 01/31/2025 04:39 PM [facility]
--- OUTSIDE RECORDS SUMMARY | 2025-01-30 07:37 | XMS_ITS | Encounter Summary ---
Author Organization [employer] Address [address] [facility] 7t [place] [address] Care Team Providers Care Dot Compliance Manager Name Role Phone Kiana Lora Primary Care Provider Josemanuel Sung MD Unavailable [phone] Reason for Visit * Reason Comments Med Refill Encounter Details Date Type Department Care Team ([facility] st Contact Info) Description 03/26/2023 Refill [facility] [address] [place], [place] [phone] Shahid Murrieta DDS [address] [place], [place] [phone] Social History Tobacco Use Types Packs/Day Years [...] documented as of this encounter Care Teams Dot Compliance Manager Relationship Specialty Start Date End Date Kiana Lora FNP [address] [place] [phone] PCP - General Family Medicine 11/21/21 Josemanuel Sung MD [address] [place] [address] [place] [phone] Urology 03/15/24 documented as of this encounter
--- OUTSIDE RECORDS SUMMARY | 2025-01-30 07:37 | XMS_ITS | Clinical Summary ---
Demographics Address [address] [place] [address] [address] [place] [address] Work Phone Mobile Phone Home Phone Preferred Language es Marital Status Scientologist Affiliation Unknown Race Other Race Ethnic Group Unknown Author Organization [employer] Address [address] [facility] 7t [place] [address] Care Team Providers Care Educational Adviser Name Role Phone Kiana Lora Primary Care Provider [phone] Josemanuel Sung MD Unavailable [phone] Allergies No known active allergies Medications [...] Overview (12/13/2024): Persistent normocytic anemia Following with [facility] Hematology - Dr. Charlton Consult 07/2024: serum [...] microscopic hematuria 08/29/2024 Overview (08/29/2024): Following with [facility] Urology - Dr. Sung Continues on Flomax and finasteride Nephrolithiasis 08/29/2024 Overview (08/29/2024): Following with [facility] Urology - Dr. Sung Renal US May 2024 demonstrated bilateral nephrolithiasis ESWL performed 06/2024 with good results Prescribed allopurinol and Vit B6 through urology Anterolisthesis of lumbosacral spine 03/15/2024 Overview (03/15/2024): Lumbar x-ray completed August 2023: 1. Grade 2 anterolisthesis of L5 on S1 with bilateral pars defects at L5-S1. 2. Hkcj-[id number] multilevel degenerative disc disease in the lumbar spine. 3. Jrda-se-cjbsqjko right convex scoliosis Assessment & Plan (03/15/2024 [...] Last PE: 08/25/23 PSA: following with [facility] Urology - Dr. Sung Colonoscopy: Last completed April 2015, due for repeat April 2025 Dental: [facility] Dental Assessment & Plan (12/30/2022 2:45 PM EST): -Labs and STI WNL August 2022 Benign prostatic hyperplasia 05/27/2021 Overview (08/25/2023): -History of lower urinary tract symptoms and gross hematuria -Followed by Dr. Sung - [facility] Urology -Continue with tamsulosin 0.4mg daily -Continue [...] Description 12/19/2024 8:40 AM EST Office Visit [facility] [address] [place] [phone] Ana Harris MD Left inguinal hernia (Primary Dx) 12/19/2024 Travel 12/14/2024 Refill [facility] MEDICINE [address] [place] [id number] Kiana Lora FNP Acute effusion of right ear 12/13/2024 9:45 AM EDT Office Visit [facility] MEDICINE [address] [place] [phone] Kiana Lora FNP Anemia, unspecified type (Primary Dx); Encounter for immunization; Encounter for vaccination; Former tobacco use; Vitamin D deficiency; Screening for osteoporosis; Other microscopic hematuria; Lower urinary tract symptoms 12/13/2024 Travel 11/15/2024 Telephone [facility] [address] [place] [address] [phone] Kiana Lora FNP Durable Medical Equipment from [...] 8:10 AM EDT) Triglycerides 65 <150 mg/dL [facility] Comment:Desirable Triglyceri de: less than 150 mg/dLBorderline High Triglyceride 150-199 mg/dLHigh Triglyceride: 200-499 mg/dLVery High Triglyceride: greater than or equal to 5OO mg/dL Cholesterol 150 <200 mg/dL [facility] Comment:Desirable Cholestero l: less than 200 mg/dLBorderline High Cholesterol: 200-239 mg/dLHigh Cholesterol: greater than 239 mg/dL LDL Cholesterol Calculated 88 <100 mg/dL [facility] Comment:Desirable LDL: less than 100 mg/dLNear Optimal/Above Optimal LDL: 110- 129 mg/dLBorderline High LDL: 130-159 mg/dLHigh LDL: 160-189 mg/dLVery High LDL: greater than or equal to 190 mg/dL HDL Cholesterol 49 >40 mg/dL [facility] Comment:Desirable HDL: great er than 40 mg/dL Note: This HDL assay may give artificially low results in patients with liver disease. Blood Venous blood specimen / Unknown 08/24/2024 8:10 AM EDT 08/24/2024 12:29 PM EDT Kiana Lora SENIOR MOBILE DEVELOPER LAB BLOOD ORDERABLES Final Res ult Performing Organization Address [facility] Co de Phone Number [facility] [address] [place] [address] [phone] * Hepatitis C Viral RNA, Quantitative, Real-Time PCR (09/07/2022 7:51 AM EDT) Hepatitis C Viral Load <15 NOT DETECTED NOT DETECTED IU/mL [facility] HCV Log PCR <1.18 NOT DETECTED NOT DETECTED Log IU/mL [facility] Comment:This test was perfor med using Real-Time Polymerase ChainReaction.Reportable Range: 15 IU/mL to 100,000,000 IU/mL(1.18 Log IU/mL to 8.00 Log IU/mL).The analytical performance characteristics of thisassay have been determined by [employer].The modifications have not been cleared or approved bythe FDA. This assay has been validated pursuant to theCLIA regulations and is used for clinical purposes.For more information on this test, go to:http://education.Megadyne/faq/LZC52b3(This link is being provided for informational/educational purposes only.)THIS TEST WAS PERFORMED AT:[employer] [place] [id number] CAST MD Blood 09/07/2022 7:51 AM EDT 09/07/2022 7:51 AM EDT Kiana Lora SENIOR MOBILE DEVELOPER LAB BLOOD ORDERABLES Final Res ult Performing Organization Address [facility]/ZIP Co de Phone Number [facility] [address] [place] [address] [phone] * Hm Colonoscopy (04/16/2015) Colonoscopy Normal Normal Narrative Maureen Auguste - 04/16/2015 Repeat in 10 years Historical Provider HEALTH MAINTENANCE Final Result from Last 3 Months or Most Recently Relevant to Health Maintenance Insurance [facility] Member Subscriber Plan / Payer ( fective 2024-Present) Name:Matthew Cooney Relation to Subscriber:Self Name:Matthew Cooney Payer ID:Not on file Group ID:[id number] Type:Not on file Address: [address] ASSISTED OPTIONS (O D-SNP) DENTAL - [facility] * Guarantor: Efrain Andria Matthew Manley Account Type Relation to Patient Date of Phone Billing Address Personal/Family Self [address] [facility] [address] [place] [address] * Guarantor: Matthew Cooney Account Type Relation to Patient Date of Phone Billing Address Personal/Family Self [address] [facility] [address] [place] [address] Care Teams Educational Adviser Relationship Specialty Start Date End Date Kiana Lora FNP [address] [place] [id number] PCP - General Family Medicine 11/21/21 Josemanuel Sung MD [address] [place] [address] Urology 03/15/24
--- OUTSIDE RECORDS SUMMARY | 2025-01-30 07:37 | XMS_ITS | Encounter Summary ---
Author Organization [employer] Address [address] [place] [address] Care Team Providers Care Bioinformatics Engineer Name Role Phone Kiana Lora Primary Care Provider [phone] Josemanuel Sung MD Unavailable [phone] Encounter Details Date Type Department Care Team (Late st Contact Info) Description 01/01/2023 Abstract [facility] [address] [place], [place] [phone] Maureen Auguste Social History Tobacco Use Types [...] documented as of this encounter Care Teams Bioinformatics Engineer Relationship Specialty Start Date End Date Kiana Lora FNP [address] [place] [address] PCP - General Family Medicine 11/21/21 Josemanuel Sung MD [address] [place] [address] Urology 03/15/24 documented as of this encounter
--- OUTSIDE RECORDS SUMMARY | 2025-01-30 07:37 | XMS_ITS | Encounter Summary ---
Author Organization [employer] Address [address] [facility] 7t [place] [address] Care Team Providers Care Puff Ironer Name Role Phone Kiana Lora Primary Care Provider [phone] Josemanuel Sung MD Unavailable [phone] Encounter Details Date Type Department Care Team (Late st Contact Info) Description 04/20/2022 Orders Only [facility] [address] [place] [address] Sunshine Hernandez LPN Social History Tobacco Use [...] on filedocumented in this encounter Care Teams Puff Ironer Relationship Specialty Start Date End Date Kiana Lora FNP [address] [place] [address] PCP - General Family Medicine 11/21/21 Josemanuel Sung MD [address] [place] [address] Urology 03/15/24 documented as of this encounter
--- OUTSIDE RECORDS SUMMARY | 2025-01-30 07:37 | XMS_ITS | Encounter Summary ---
Author Organization [employer] [facility] Address [address] [place] [address] 7t [place] [address] Care Team Providers Care Actuary Manager Name Role Phone Kiana Lora Primary Care Provider [phone] Josemanuel Sung MD Unavailable [phone] Encounter Details Date Type Department Care [...] on filedocumented in this encounter Care Teams Actuary Manager Relationship Specialty Start Date End Date Kiana Lora FNP [address] [place] [address] PCP - General Family Medicine 11/21/21 Josemanuel Sung MD [address] [place] [address] Urology 03/15/24 documented as of this encounter
--- OUTSIDE RECORDS SUMMARY | 2025-01-30 07:37 | XMS_ITS | Encounter Summary ---
Author Organization [employer] [facility] Address [address] [facility] 7t [place] [address] Care Team Providers Care Fish Skinning Machine Feeder Name Role Phone Kiana Lora Primary Care Provider [phone] Josemanuel Sung MD Unavailable [phone] Encounter Details Date Type Department Care Team (Latest Contact Info) Description 10/14/2018 Abstract [facility] Dental, Provider, DDS Social History [...] on filedocumented in this encounter Care Teams Fish Skinning Machine Feeder Relationship Specialty Start Date End Date Kiana Lora FNP [address] [place] [address] PCP - General Family Medicine 11/21/21 Josemanuel Sung MD [address] [place] [address] Urology 03/15/24 documented as of this encounter
--- OUTSIDE RECORDS SUMMARY | 2025-01-30 07:37 | XMS_ITS | Encounter Summary ---
Author Organization [email or web address] [facility] Address [address] [place] [address] 7t [place] [address] Care Team Providers Care Title Closer Name Role Phone Kiana Lora Primary Care Provider [phone] Josemanuel Sung MD Unavailable [phone] Reason for Visit * Reason Comments Med Refill Encounter Details Date Type Department Care Team (Late st Contact Info) Description 08/03/[address] [facility] [address] [place] [address] Susan Watson FNP Intermittent low back pain [...] documented as of this encounter Care Teams Title Closer Relationship Specialty Start Date End Date Kiana Lora FNP [address] [place] [address] PCP - General Family Medicine 11/21/21 Josemanuel Sung MD [address] [place] [address] Drive [address] [place] [address] Urology 03/15/24 documented as of this encounter
--- NOTE | 2025-01-30 07:38 | CA_ITS ---
Transthoracic Echocardiogram Patient (Last, First, Middle): Matthew Zuniga A Gender: M Date of : 1960 Age: 64 Procedure Date: 01/30/2025 Procedure Type: Transthoracic Echocardiogram Location: OP Height: 167.64 cm Weight: 58.97 kg BSA: 1.67 m2 Heart Rate: 78 bpm BP: 130 / 78 mmHg Surgical Rn: TO Referring MD: Alberto Vásquez MD Envelope Fold Operator: Panda Ballesteros MD Symptoms: R07.9 - Chest pain, unspecified Study Quality: Adequate ECG Rhythm: Sinus Conclusions: - 1. Normal LV ejection fraction 60 65% with grade 1 diastolic dysfunction 2. Normal cardiac valvular Dopplers 3. Normal RV systolic pressure 4. No gross pericardial effusion Findings Left Ventricle Normal left ventricular size, thickness, and systolic function. The visually estimated ejection fraction is between 60-65%. Spectral Doppler is indicative of an impaired relaxation filling pattern. E/E prime ratio is <8, consistent with normal filling pressures. Evidence suggests grade I (mild) diastolic dysfunction. Right Ventricle Normal right ventricular cavity size and systolic function. Atria Both atria are normal in size. There is no evidence of interatrial shunt. Aortic Valve Normal aortic valve structure and function. There is no aortic valve stenosis. There is no aortic valve regurgitation. Mitral Valve Normal mitral valve structure and function. There is trace mitral valve regurgitation. There is no mitral valve stenosis. Pulmonic Valve The pulmonic valve is likely normal. Tricuspid Valve Normal tricuspid valve structure. There is trace tricuspid valve regurgitation. The right ventricular systolic pressure is normal. The right ventricular systolic pressure is 20 mmHg. Normal right atrial pressure. There is no evidence of pulmonary hypertension. Great Vessels All visible segments of the aorta are normal in size. The pulmonary artery was not well visualized. There is no dilatation of the ascending aorta measuring 3.20 cm. Venous The inferior vena cava is normal in size and collapses greater than 50% with inspiration. Pericardium/Pleural There is no evidence of pericardial effusion. Prior Study Comparison No prior study available for comparison. Measurements 2D Linear Measurements IVSd: 1.00 0.6-0.9/0.6-1.0 cm LVIDd: 3.99 3.9-5.3/4.2-5.9 cm LVIDd Index: 2.39 2.4-3.2/2.2-3.1 cm/m2 LVIDs: 2.98 2.0-3.6 cm LVPWd: 1.01 0.7-1.1 cm LA Diam: 2.40 2.7-3.8/3.0-4.0 cm LAIDs Index: 1.44 1.5-2.3 cm/m2 LV Mass: 158.24 67-162/88-224 g LV Mass Index: 94.76 43-95/49-115 g/m2 LVOT Diam: 2.10 3.0+(-)1.3 cm 2D Systolic Function EF 4C: 61.00 >55% EF 2C: 55.70 >55% EF BiP: 60.40 >55% Mitral Valve MV Pk E: 0.39 MV PK A: 0.68 MV Decel Time: 186.00 E/A: 0.60 E'Lateral: 7.62 E'Medial: 6.09 E/E' Med: 6.30 E/E' Lat: 5.10 PHT: 54.00 MVA PHT: 4.07 Decel [place]: 2.08 Aortic Valve AoV Pk Robinson: 1.05 AoV Mn Robinson: 0.71 AoV VTI: 0.18 AoV Pk Grad: 4.00 Aov Mn Grad: 2.00 RHYS Cont.VTI: 2.95 LVOT LVOT Pk Robinson: 0.84 LVOT Mn Robinson: 0.57 LVOT VTI: 0.15 LVOT Pk Grad: 3.00 LVOT Mn Grad: 1.00 LVOT Diam: 2.10 LVOT Area: 3.46 Diastolic Function MV Pk E: 0.39 MV Pk A: 0.68 E/A: 0.60 E'Medial: 6.09 E/E' Med: 6.30 E' Laterial: 7.62 E/E' Lat: 5.10 Right Ventricle TAPSE (mm): 22.10 TVS' Robinson: 10.60 Tricuspid Valve TR Pk Robinson: 2.06 TR Pk Grad: 17.00 RA Press: 3.00 RVSP: 20.00 Great Vessels Aorta Sinus of Valsalva: 3.60 2.0-3.5 cm Ao Asc: 3.20 2.1-3.4 cm Ao Arch: 2.50 Updated in Other Vendor System with Status of Final Panda Ballesteros MD electronically signed on 01/30/2025 1:26:41 PM with status of Final
--- NOTE | 2025-01-30 07:38 | CA_ITS ---
Acquisition Time: 2025-01-30 09:02:34 Total Exercise Time: 00:03:37 Test Indications: Abnormal ECG CP Medications: SEE H&P Protocol: GERALD Max HR: 141 BPM 91% of Pred: 154 BPM Max BP: 190/84 mmHG Max Work Load: 5.3 METS Exercise stress test with exercise 3 mins 37 secs of Gerald Protocol, achieving 91% MPHR, requested to stop due to dizziness. No chest pain. Test switched to Lexiscan. Pharmacological stress test with Lexiscan while pt marches in chair, with reports of dizziness and SOB, with sinu tach at 141, without any arrythmias, with normotensive response to injection. Nondiagnostic EKG for ischemia., In recovery, pt treated with IVP Aminophylline 75 mg to reverse Lexiscan after which pt feeling back to baseline. Symptoms resolved. HR improved. Nuclear images pending. Test reviewed with Dr. Toussaint. Referred By: Alberto Vásquez Electronically Signed By: Glen Cisneros
== END ==
LOC: HO.CARD 07:34
PROVIDERS: PCP Registered Nurse; Visit Provider Internal Medicine
DX: R07.2 Precordial pain (principal)
CPT/HCPCS: 78452; 93017; 93306; A9500; J0280; J2785

== ENCOUNTER → 2025-01-30 07:38 | Outpatient (BNV) | payer OTHER, SELFPAY | PROVIDERS: PCP Registered Nurse | DX: R07.9 Chest pain, unspecified (principal); R06.02 Shortness of breath; R42 Dizziness and giddiness | CPT/HCPCS: 78452; 93016; 93018; 93306 ==